=== PATIENT | female | born 1965 | race Caucasian/White ===

== ENCOUNTER 2021-11-18 16:23 | Inpatient (IN) | payer OTHER, SELFPAY ==
[2021-11-18] VITALS (11 sets, daily range): BP systolic 95–146; BP diastolic 68–97; PULSE 101–149; RESP 16–25; TEMP 35.7–37.2; O2SAT 92–100; BMI 23.4
--- NOTE | 2021-11-18 | EEG_ITS ---
This EEG is done in a comatose patient, status post cardiac arrest. She is on a respirator and sedated. Background activity consists of a low voltage, diffuse 2 hertz delta. Minor muscle artifacts are seen. There are no paroxysmal seizure discharges or burst suppression patterns. Photic stimulation and hyperventilation were omitted. IMPRESSION: This is a markedly abnormal EEG due to severe diffuse background slowing consistent with severe diffuse encephalopathic process. No seizure discharges were seen. MD FIDEL Walker/KENY / [id number]
--- NOTE | 2021-11-18 | ECG_ITS ---
Test Reason : post cardiac arrest Blood Pressure : / mmHG Vent. Rate : 099 BPM Atrial Rate : 099 BPM P-R Int : 160 ms QRS Dur : 102 ms QT Int : 396 ms P-R-T Axes : 052 -21 087 degrees QTc Int : 508 ms Normal sinus rhythm Nonspecific ST and T wave abnormality Possible Septal infarct Prolonged QT Abnormal ECG No significant change was found Referred By: Antonio Guillory Electronically Signed By:MAXINE KIMBLE MD
--- NOTE | ~2021-11-18 | CT_ITS ---
EXAMINATION: CT ABDOMEN AND PELVIS WITH CONTRAST CLINICAL INFORMATION: Elevated LFTs. COMPARISON: CT abdomen and pelvis 11/18/2021 TECHNIQUE: Multidetector volumetric images were obtained from the superior aspect of the liver through the pubic symphysis following administration 85 mL of Omnipaque 350 intravenous contrast. Sagittal and coronal reformatted images were obtained on the technologist's workstation. Oral contrast: No This CT examination was performed using dose optimization techniques as appropriate, variously including the following: *Automated exposure control *Adjustment of mA and/or kV according to patient size (this includes techniques or standardized protocols for targeted exams where dose is matched to indication/reason for exam; i.e. extremities or head) *Use of iterative reconstruction technique DLP: 855 mGy-cm FINDINGS: LUNG BASES: There is a right lower lobe platelike atelectasis. Heart size is normal. There is minimal left posterior pleural thickening. LIVER, GALLBLADDER, AND BILIARY TREE: The liver is normal in size, shape, and attenuation. There is a 2.8 x 5.1 cm lobulated peripherally enhancing thick wall lesion suspicious and suggestive of a hemangioma. No additional lesions seen. There is no intrahepatic ductal dilatation. The gallbladder is nondistended visualized due to fluid-filled mildly distended colon and small bowel loops. PANCREAS: Unremarkable. SPLEEN: Unremarkable. ADRENAL GLANDS: Unremarkable. KIDNEYS AND URETERS: The kidneys are normal in size, shape, and attenuation. No hydronephrosis, hydroureter, or calculi seen. No perinephric stranding. BLADDER: The bladder is nondistended with a Blue's catheter within. GASTROINTESTINAL TRACT: There are multiple prominent small bowel loops and the entire colon with air-fluid level. Moderate stool is seen in the sigmoid colon and the rectum. No free air or free fluid seen. The stomach is nondistended with a enteric tube tip in the fundus of the stomach. ABDOMINAL WALL: No significant hernia is appreciated. LYMPH NODES: Normal. VASCULAR: Mild sclerotic changes of abdominal aorta without aneurysmal dilatation. PELVIC VISCERA: The uterus is anteverted and appears unremarkable. There are scattered phleboliths in the pelvis. OSSEOUS STRUCTURES: There are degenerative disc changes L5-S1 and L2-L3 disc levels with mild ventral spondylosis. No lytic or sclerotic process seen. CT/CT abdomen pelvis w con IMPRESSION: Multiple prominent small bowel loops and colon with air-fluid collection but no major distention likely generalized ileus. There is moderate stool in the sigmoid colon and the rectum region which could be contributing 2 sluggish colonic peristalsis The Blue's catheter and enteric tube are in good position. Probable hemangioma right hepatic lobe Fleischner guidelines were followed.
--- NOTE | ~2021-11-18 | CT_ITS ---
EXAMINATION: CT HEAD WITHOUT CONTRAST CLINICAL INFORMATION: Follow-up cardiac arrest 2 days ago COMPARISON: None TECHNIQUE: Contiguous axial imaging was performed from the skull base to vertex without intravenous administration of contrast. This CT examination was performed using dose optimization techniques as appropriate, variously including the following: *Automated exposure control *Adjustment of mA and/or kV according to patient size (this includes techniques or standardized protocols for targeted exams where dose is matched to indication/reason for exam; i.e. extremities or head) *Use of iterative reconstruction technique DLP: 713 mGy-cm FINDINGS: There is no evidence of acute intracranial hemorrhage or territorial infarction. No abnormal mass effect or midline shift is seen. Whitaker to white matter differentiation is well preserved. No extra-axial fluid collections are identified. The ventricles are small asymmetrical but unchanged. There is loss of cortical sulci with ill-defined demarcation between the cortex and the white matter, slightly more pronounced than 11/18/2021. There is normal aeration of bilateral mastoid and paranasal sinuses. No bony calvarial abnormality seen. No scalp soft tissue swelling. CT/CT head/brain wo con IMPRESSION: No acute intracranial process seen. Mild loss of whitaker-white matter junction slightly more prominent compared to 11/18/2021. The cortical sulci are less distinct. Question mild cerebral edema.
--- NOTE | ~2021-11-18 | XR_ITS ---
EXAMINATION: XR chest 1V CLINICAL INFORMATION: Reason for Exam intubation and central line placement COMPARISON: None TECHNIQUE: XR chest 1V Tubes and lines: Endotracheal tube approximately 3 cm from beth, right IJ central line catheter tip projecting over the SVC/RA junction. Gastric tube passing below the diaphragm into the stomach. Lungs and pleura: Both lungs are clear. Heart and mediastinum: The mediastinum is within normal limits.. Bones/soft tissue: Skeletal structures included are normal for patient's age. XR/XR chest 1V IMPRESSION: ET tube, gastric tube and right IJ central line catheter in place properly positioned. Lungs are clear.
--- NOTE | ~2021-11-18 | CT_ITS ---
EXAMINATION: CT HEAD WITHOUT CONTRAST CLINICAL INFORMATION: Seizure. Cardiac arrest. COMPARISON: None. TECHNIQUE: Contiguous axial imaging was performed from the skull base to vertex without intravenous administration of contrast. Coronal and sagittal reformatted images are performed at the CT scanner. [This CT examination was performed using dose optimization techniques as appropriate, variously including the following: *Automated exposure control *Adjustment of mA and/or kV according to patient size (this includes techniques or standardized protocols for targeted exams where dose is matched to indication/reason for exam; i.e. extremities or head) *Use of iterative reconstruction technique] DLP: 638 mGy-cm. FINDINGS: There is no evidence of acute intracranial hemorrhage or territorial infarction. No abnormal mass-effect or midline shift is seen. Whitaker to white matter differentiation is well preserved. No extra-axial fluid collections are identified. The ventricles are normal in size. There is no abnormal attenuation within the brain parenchyma. There is no osseous abnormality. The mastoid air cells and visualized portions of the paranasal sinuses are well-aerated. CT/CT head/brain wo con IMPRESSION: No acute intracranial pathology.
[2021-11-18] MEDS: 0.9 % Sodium Chloride 1,000 ML 999 ML IVCONT ×2 (16:33→18:01)
--- NOTE | 2021-11-18 17:08 | ED.CPR ---
HPI - CPR General Chief Complaint: Cardiac Arrest/CPR Stated Complaint: Cardiac Arrest Time Seen by Provider: 11/18/21 16:32 Source: EMS Mode of arrival: EMS Limitations: altered mental status History of Present Illness HPI narrative: I was in the room prior to arrival of the patient. 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 Shock advised: Yes Initial findings in the field: unresponsive ROSC in the field: No Related Data Allergies Allergy/AdvReac Type Severity Reaction Status Date / Time Unable to Assess Allergy Unverified 11/18/21 16:58 Review of Systems Review of Systems: Yes Unobtainable due to mental condition Neurologic: Denies Sensory deficit (Neuro) PENDING SALE TO [facility] Social History Social History Advance Directives: No Advance Directives Information Provided: No Physical Exam Vital Signs: Vital Signs: Last Vital Signs Temp 97.2 F 11/18/21 19:20 Pulse 113 H 11/18/21 19:20 Resp 18 11/18/21 19:20 BP 146/97 H 11/18/21 19:20 Pulse Ox 100 11/18/21 19:20 O2 Del Method 11/18/21 19:20 FiO2 100 11/18/21 16:55 BMI result Body Mass Index 23.4 Const: Other: CPR in progress Nutritional Appearance: average body habitus HEENT: Head: Yes normal to inspection Ears: external ears normal General nose exam: Normal external nose present Mouth: Normal oral and palatal mucosa present and oropharynx normal Throat: Yes posterior oropharynx normal Eyes: General: appearance normal, both eyes and all related structures Neck: Other: supple Neck: Yes normal visual inspection Chest: Chest palpation & inspection: normal inspection of the chest Resp: Auscultation: clear to auscultation bilaterally Cardio: Jugular venous distension: no JVD Rate: regular rate Rhythm: regular rhythm Heart sounds: S1 normal heart sound present and S2 normal heart sound present GI: Inspection: Yes normal to inspection Palpation (GI): Soft to palpation, nontender and No hepatosplenomegaly present Auscultation: normal bowel sounds : General: Yes no CVA tenderness Back/Spine/Pelvis: Back: no CVA tenderness Skin: General skin exam: no rashes or lesions noted Neuro: Cranial nerves: Yes CN's II-XII intact bilaterally Motor exam (neuro): 5/5 motor strength present throughout Sensory Exam: No Sensory deficit (Neuro) Extrem: General: Yes normal to inspection Psych: Appearance: grossly normal Course Reevaluation(s) Reevaluation #1: Using the glidescope, patient with intubated with 7Fr ETT. patient prepped and left anterior tibial IO placed, Proper hand hygiene, cap, gown and sterile gloves place worn. Patient prepped and draped in sterile fashion, 1% lidocaine used for anesthesia, sterile US cover used, central line placed using US. Central line 16cm at the neck. Sutured in place. A total of three procedures for this patient Reevaluation #2: I spent 70 minutes of critical care, with interventions, assessments, speaking to patient, consultants, and family. Patient to be admitted to the ICU at [facility]. Time: 20:01 MDM - Cardiac Arrest/CPR Lab Data Result diagrams: 11/18/21 17:19 11/18/21 17:19 Labs: Lab Results 11/18/21 11/18/21 11/18/21 Range/Units 17:18 17:18 17:19 WBC (4.8-10.8) X10*3/uL RBC (4.20-5.50) X10*6/uL Hgb (12.0-16.0) g/dl Hct (37.0-47.0) % MCV (80.0-98.0) fL MCH (27.0-33.0) pg MCHC (31.0-35.0) g/dl RDW (11.0-16.0) % Plt Count (160-400) X10*3/uL MPV (9.4-12.3) fL Immature Gran % (Auto) (0.0-0.4) % Neut % (Auto) (45-73) % Lymph % (Auto) (20-40) % [place] % (Auto) (2-11) % Eos % (Auto) (0-4) % Baso % (Auto) (0-2) % Lymph # (Auto) (1.2-4.9) X10*3/uL [place] # (Auto) (0.1-1.2) X10*3/uL Eos # (Auto) (0.0-0.4) X10*3/uL Baso # (Auto) (0.0-0.2) X10*3/uL Abs Immat Gran (auto) (0.00-0.03) X10*3/uL Absolute Neuts (auto) (2.0-8.3) x10*3/uL Absolute Nucleated RBC (0.0-0.012) X10*3/uL Nucleated RBC % (auto) (0.0-0.2) /100WBC O2 Saturation % ABG pH at Pt Temp (7.35-7.45) ABG pCO2 at Pt Temp (32-45) mmHg ABG pO2 at Pt Temp (83-108) mmHg ABG HCO3 (22-26) mmol/L ABG Base Excess (Actual) mmol/L Sodium 139 (135-145) mmol/L Potassium 3.7 (3.3-5.1) mmol/L Chloride 106 (96-108) mmol/L Carbon Dioxide 17 L (22-29) mmol/L Anion Gap 20 (12-20) BUN 17 H (9-16) mg/dL Creatinine 1.33 (0.5-1.4) mg/dL Estim Creat Clear Calc 41.2 Estimated GFR 41 Random Glucose 209 H (60-115) mg/dL Lactic Acid 5.3 H* (0.5-2.0) mmol/L Calcium 8.6 (8.4-10.2) mg/dL Total Bilirubin 0.3 (0.0-1.0) mg/dL AST 512 H (5-31) U/L ALT 570 H (0-31) U/L Alkaline Phosphatase 106 (39-117) U/L Troponin I High Sens (<3.5-17.0) ng/L Total Protein 6.7 (6.5-8.0) g/dL Albumin 4.1 (3.5-5.0) g/dL Urine Color Urine Appearance Urine pH (5.0-8.0) Ur Specific [place] (1.005-1.025) Urine Protein (NEG-TRACE) MG/DL Urine Glucose (UA) (NEG) MG/DL Urine Ketones (NEG) MG/DL Urine Blood (NEG) Urine Nitrite (NEG) Ur Leukocyte Esterase (NEG) Urine RBC (0) /HPF Urine WBC (0-4) /HPF Ur Squamous Epith Cells /LPF Amorphous Sediment /LPF Urine Bacteria /LPF Granular Casts /LPF Urine Mucus /LPF Ethyl Alcohol < 10 mg/dL 11/18/21 11/18/21 11/18/21 Range/Units 17:19 17:19 17:30 WBC 12.8 H (4.8-10.8) X10*3/uL RBC 4.64 (4.20-5.50) X10*6/uL Hgb 12.9 (12.0-16.0) g/dl Hct 41.4 (37.0-47.0) % MCV 89.2 (80.0-98.0) fL MCH 27.8 (27.0-33.0) pg MCHC 31.2 (31.0-35.0) g/dl RDW 13.1 (11.0-16.0) % Plt Count 361 (160-400) X10*3/uL MPV 9.2 L (9.4-12.3) fL Immature Gran % (Auto) 2.7 H (0.0-0.4) % Neut % (Auto) 57.1 (45-73) % Lymph % (Auto) 36.8 (20-40) % [place] % (Auto) 3.0 (2-11) % Eos % (Auto) 0.2 (0-4) % Baso % (Auto) 0.2 (0-2) % Lymph # (Auto) 4.7 (1.2-4.9) X10*3/uL [place] # (Auto) 0.4 (0.1-1.2) X10*3/uL Eos # (Auto) 0.0 (0.0-0.4) X10*3/uL Baso # (Auto) 0.0 (0.0-0.2) X10*3/uL Abs Immat Gran (auto) 0.35 H (0.00-0.03) X10*3/uL Absolute Neuts (auto) 7.3 (2.0-8.3) x10*3/uL Absolute Nucleated RBC 0.000 (0.0-0.012) X10*3/uL Nucleated RBC % (auto) 0.0 (0.0-0.2) /100WBC O2 Saturation 100.0 % ABG pH at Pt Temp 7.30 L (7.35-7.45) ABG pCO2 at Pt Temp 29 L (32-45) mmHg ABG pO2 at Pt Temp 294 H (83-108) mmHg ABG HCO3 14 L (22-26) mmol/L ABG Base Excess (Actual) -10.3 mmol/L Sodium (135-145) mmol/L Potassium (3.3-5.1) mmol/L Chloride (96-108) mmol/L Carbon Dioxide (22-29) mmol/L Anion Gap (12-20) BUN (9-16) mg/dL Creatinine (0.5-1.4) mg/dL Estim Creat Clear Calc Estimated GFR Random Glucose (60-115) mg/dL Lactic Acid (0.5-2.0) mmol/L Calcium (8.4-10.2) mg/dL Total Bilirubin (0.0-1.0) mg/dL AST (5-31) U/L ALT (0-31) U/L Alkaline Phosphatase (39-117) U/L Troponin I High Sens 43.0 H (<3.5-17.0) ng/L Total Protein (6.5-8.0) g/dL Albumin (3.5-5.0) g/dL Urine Color Urine Appearance Urine pH (5.0-8.0) Ur Specific [place] (1.005-1.025) Urine Protein (NEG-TRACE) MG/DL Urine Glucose (UA) (NEG) MG/DL Urine Ketones (NEG) MG/DL Urine Blood (NEG) Urine Nitrite (NEG) Ur Leukocyte Esterase (NEG) Urine RBC (0) /HPF Urine WBC (0-4) /HPF Ur Squamous Epith Cells /LPF Amorphous Sediment /LPF Urine Bacteria /LPF Granular Casts /LPF Urine Mucus /LPF Ethyl Alcohol mg/dL 11/18/21 Range/Units 19:23 WBC (4.8-10.8) X10*3/uL RBC (4.20-5.50) X10*6/uL Hgb (12.0-16.0) g/dl Hct (37.0-47.0) % MCV (80.0-98.0) fL MCH (27.0-33.0) pg MCHC (31.0-35.0) g/dl RDW (11.0-16.0) % Plt Count (160-400) X10*3/uL MPV (9.4-12.3) fL Immature Gran % (Auto) (0.0-0.4) % Neut % (Auto) (45-73) % Lymph % (Auto) (20-40) % [place] % (Auto) (2-11) % Eos % (Auto) (0-4) % Baso % (Auto) (0-2) % Lymph # (Auto) (1.2-4.9) X10*3/uL [place] # (Auto) (0.1-1.2) X10*3/uL Eos # (Auto) (0.0-0.4) X10*3/uL Baso # (Auto) (0.0-0.2) X10*3/uL Abs Immat Gran (auto) (0.00-0.03) X10*3/uL Absolute Neuts (auto) (2.0-8.3) x10*3/uL Absolute Nucleated RBC (0.0-0.012) X10*3/uL Nucleated RBC % (auto) (0.0-0.2) /100WBC O2 Saturation % ABG pH at Pt Temp (7.35-7.45) ABG pCO2 at Pt Temp (32-45) mmHg ABG pO2 at Pt Temp (83-108) mmHg ABG HCO3 (22-26) mmol/L ABG Base Excess (Actual) mmol/L Sodium (135-145) mmol/L Potassium (3.3-5.1) mmol/L Chloride (96-108) mmol/L Carbon Dioxide (22-29) mmol/L Anion Gap (12-20) BUN (9-16) mg/dL Creatinine (0.5-1.4) mg/dL Estim Creat Clear Calc Estimated GFR Random Glucose (60-115) mg/dL Lactic Acid (0.5-2.0) mmol/L Calcium (8.4-10.2) mg/dL Total Bilirubin (0.0-1.0) mg/dL AST (5-31) U/L ALT (0-31) U/L Alkaline Phosphatase (39-117) U/L Troponin I High Sens (<3.5-17.0) ng/L Total Protein (6.5-8.0) g/dL Albumin (3.5-5.0) g/dL Urine Color STRAW Urine Appearance HAZY Urine pH 7.5 (5.0-8.0) Ur Specific [place] 1.020 (1.005-1.025) Urine Protein 2+ H (NEG-TRACE) MG/DL Urine Glucose (UA) 100 H (NEG) MG/DL Urine Ketones NEG (NEG) MG/DL Urine Blood 3+ H (NEG) Urine Nitrite NEG (NEG) Ur Leukocyte Esterase NEG (NEG) Urine RBC 30-49 H (0) /HPF Urine WBC 1-4 (0-4) /HPF Ur Squamous Epith Cells 2+ /LPF Amorphous Sediment 2+ /LPF Urine Bacteria 1+ /LPF Granular Casts 1-4 /LPF Urine Mucus 1+ /LPF Ethyl Alcohol mg/dL Imaging Data CT scan - head: Radiologist's impression: FINDINGS: There is no evidence of acute intracranial hemorrhage or territorial infarction. No abnormal mass-effect or midline shift is seen. Whitaker to white matter differentiation is well preserved. No extra-axial fluid collections are identified. The ventricles are normal in size. There is no abnormal attenuation within the brain parenchyma. There is no osseous abnormality. The mastoid air cells and visualized portions of the paranasal sinuses are well-aerated. ? CT/CT head/brain wo con IMPRESSION: No acute intracranial pathology. ? Chest x-ray: Radiologist's impression: Tubes and lines: Endotracheal tube approximately 3 cm from beth, right IJ central line catheter tip projecting over the SVC/RA junction. Gastric tube passing below the diaphragm into the stomach. Lungs and pleura: Both lungs are clear. Heart and mediastinum: The mediastinum is within normal limits.. Bones/soft tissue: Skeletal structures included are normal for patient's age. XR/XR chest 1V IMPRESSION: ET tube, gastric tube and right IJ central line catheter in place properly positioned. ? Lungs are clear. Discharge Plan Discharge Clinical Impression: Cardiac arrest, Acute respiratory failure, Seizure Patient Disposition: Admitted As Inpatient
--- NOTE | 2021-11-18 17:09 | ECG_ITS ---
Test Reason : ASYSTOLE Blood Pressure : / mmHG Vent. Rate : 141 BPM Atrial Rate : 141 BPM P-R Int : 180 ms QRS Dur : 100 ms QT Int : 246 ms P-R-T Axes : 083 -39 270 degrees QTc Int : 376 ms Sinus tachycardia with occasional Premature ventricular complexes Possible Left atrial enlargement Left axis deviation Minimal voltage criteria for LVH, may be normal variant ( James product ) Septal infarct , age undetermined ST & T wave abnormality, consider inferior ischemia ST & T wave abnormality, consider anterolateral ischemia Abnormal ECG No previous ECGs available Referred By: Antonio Guillory Electronically Signed By:MAXINE KIMBLE MD
--- NOTE | 2021-11-18 17:18 | PC.NURSE ---
XRAY AT BEDSIDE
[2021-11-18 17:27] LABS: MANUAL DIFF FLAG NO
[2021-11-18 17:28] LABS: Basophils Percent Auto 0.2 % (0-2); Eosinophils Percent Auto 0.2 % (0-4); Hematocrit 41.4 % (37.0-47.0); Hemoglobin 12.9 g/dl (12.0-16.0); Imm Gran Abs Auto 0.35 X10*3/uL (0.00-0.03); Imm Gran Pct Auto 2.7 % (0.0-0.4); Lymphocytes Absolute Auto 4.7 X10*3/uL (1.2-4.9); Lymphocytes Percent Auto 36.8 % (20-40); Mean Corpuscular HGB Conc 31.2 g/dl (31.0-35.0); Mean Corpuscular Hemoglobin 27.8 pg (27.0-33.0); Mean Corpuscular Volume 89.2 fL (80.0-98.0); Mean Platelet Volume 9.2 fL (9.4-12.3); Monocytes Absolute Auto 0.4 X10*3/uL (0.1-1.2); Neutrophils Absolute Auto 7.3 x10*3/uL (2.0-8.3); Neutrophils Percent Auto 57.1 % (45-73); Platelet Count 361 X10*3/uL (160-400); Red Blood Count 4.64 X10*6/uL (4.20-5.50); Red Cell Distribution Width 13.1 % (11.0-16.0); White Blood Count 12.8 X10*3/uL (4.8-10.8)
[2021-11-18 17:34] LABS: ABG Base Excess -10.3 mmol/L; ABG HCO3 14 mmol/L (22-26); ABG pCO2 29 mmHg (32-45); ABG pO2 294 mmHg (83-108)
[2021-11-18 17:45] LABS: Ethanol < 10 mg/dL
--- NOTE | 2021-11-18 17:47 | PC.NURSE ---
return from ct with no incident
[2021-11-18 17:54] LABS: Alanine Aminotransferase 570 U/L (0-31); Albumin Level 4.1 g/dL (3.5-5.0); Alkaline Phosphatase 106 U/L (39-117); Anion Gap 20 (12-20); Aspartate Amino Transferase 512 U/L (5-31); Bilirubin Total 0.3 mg/dL (0.0-1.0); Blood Urea Nitrogen 17 mg/dL (9-16); Calcium 8.6 mg/dL (8.4-10.2); Carbon Dioxide 17 mmol/L (22-29); Chloride 106 mmol/L (96-108); Creatinine Clr Calc Pharmacy 41.2; Estimated Glomerular Filt Rate 41; Glucose Random 209 mg/dL (60-115); Potassium 3.7 mmol/L (3.3-5.1); Sodium 139 mmol/L (135-145); Total Protein 6.7 g/dL (6.5-8.0)
[2021-11-18 17:57] LABS: Lactic Acid 5.3 mmol/L (0.5-2.0)
--- NOTE | 2021-11-18 17:58 | PC.NURSE ---
awaiting md order in chart s/p verbal order of 4mg iv ativan at 1720
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
--- NOTE | 2021-11-18 19:23 | ECG_ITS ---
Test Reason : CARDIAC Blood Pressure : / mmHG Vent. Rate : 124 BPM Atrial Rate : 124 BPM P-R Int : 148 ms QRS Dur : 096 ms QT Int : 338 ms P-R-T Axes : 076 -02 086 degrees QTc Int : 485 ms Sinus tachycardia Septal infarct (cited on or before 18-NOV-2021) Abnormal ECG When compared with ECG of 18-NOV-2021 16:26, Premature ventricular complexes are no longer Present Serial changes of evolving Septal infarct Present ST less depressed in Inferior leads / Anterolateral leads Referred By: Fermin Stern Electronically Signed By:MAXINE KIMBLE MD
[2021-11-18 19:25] LABS: Reflex Lactate? Lactic Acid Added
[2021-11-18 19:38] LABS: Appearance Urine HAZY; Color Urine STRAW; Glucose Urine UA 100 MG/DL (NEG); Leukocyte Esterase Urine NEG (NEG); Nitrite Urine NEG (NEG); PH 7.5 (5.0-8.0); UACC Culture Trigger NO; Urine Blood 3+ (NEG); Urine Ketones NEG (NEG); Urine Protein 2+ MG/DL (NEG-TRACE)
[2021-11-18 19:45] LABS: Mucus Urine 1+ /LPF
[2021-11-18 19:46] LABS: Amorphous Sediment Urine 2+ /LPF; Bacteria Urine 1+ /LPF; Squamous Epithelial Cell Urine 2+ /LPF
[2021-11-18 19:47] LABS: RBC Urine 30-49 /HPF (0)
[2021-11-18] MEDS: iohexoL 350 MG/ML 100 ML INFUS..BTL IV (20:14)
[2021-11-18] MEDS: Pantoprazole Sodium 40 MG/10 ML VIAL IVPUSH (20:36)
[2021-11-18] MEDS: Heparin Sodium,Porcine 5,000 UNIT/ML VIAL 5000 UNIT SUBCUT (20:37)
[2021-11-18 20:48] LABS: Amphetamine Screen Urine Not Detected (Not Detect); Barbiturates, Urine Not Detected (Not Detect); Benzodiazepines Screen Urine Not Detected (Not Detect); Cannabinoid Screen Urine POSITIVE (Not Detect); Cocaine Screen Urine Not Detected (Not Detect); Fentanyl, urine Not Detected (Not Detect); Opiate Screen Urine Not Detected (Not Detect); Phencyclidine Screen Urine Not Detected (Not Detect)
[2021-11-18 20:48] LABS: VBG Base Excess -7.4 mmol/L; VBG HCO3 17 mmol/L (22-26); VBG pCO2 35 mmHg; VBG pH 7.31 (7.32-7.43); VBG pO2 144 mmHg
[2021-11-18 20:50] LABS: Venous Blood Gas Refer to POC result
--- NOTE | 2021-11-18 20:51 | PM.CCHP ---
History of Present Illness Date of Service: 11/18/21 Attending physician on admission: Raymundo Araujo Chief Complaint: Post cardiorespiratory arrest HPI:? 55-year-old female, the majority of history obtained from ER records But also from her who is now a bedside the patient has on underlying history of prescription drug abuse for about 3 years up until the end of last year currently on methadone, hypertension, hyperlipidemia. According to the patient's , the patient had been doing well on methadone for the past several months since she started treatment.? ?He last spoke to her around 230 pm and she had complained of having a headache which is not usual for her as well as having elevated blood pressure,? ?Otherwise she was in good state of health. Reportedly the patient was at work and she was found slumped over perhaps seizing, EMS was called but only a BLS crew was available, according to ER records it was reported to them the patient had been down for 5 minutes, 3 shocks from AED were given at the scene and 12 mg of intranasal Narcan without response, transported to the ER with CPR in progress, no rhythm on the monitor at the time; approximately 5 minutes of CPR and 2 doses of epinephrine were given via a intra osseous line placed in the Left tibia by the ER personnel; ROSC was obtained, the patient was intubated and right IJ central line. In the ED the workup revealed a white count 12.8, H&H of 12.9 and 41.4 respectively, platelets 361.? Her ABG pH 7.3, pCO2 29, PO2 294 HC03 14.? Sodium 139, potassium 3.7, chloride 1 6, carbon dioxide 17, anion gap 20, BUN 17, creatinine 1.3, GFR 41, random glucose 209, lactic acid 5.3, calcium 8.6.? LFTs elevated at 512 and 570 respectively, troponin 43.? Urine negative with a blood alcohol level less than 10.? There is no toxicology screen done, her chest x-ray and head CT showed no abnormalities. ROS:? UNABLE TO OBTAIN PATIENT INTUBATED Past Medical History:? As above Past Surgical History:? none per Family history:? Unknown Social History: I talked to the patient's Primary contact Wu Brannon, patient's significant other, phone number [phone]; He has been her partner for 23 years, they have a son. The patient does not drink, however she does smoke cigarettes with a approximate 25 pack-year history of tobacco consumption is still smoking just under a pack daily, occasionally smokes marijuana, got into prescription drug abuse about 3 years ago and started methadone treatment in June of this year. 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 CODE STATUS:? Full code Allergies:? No known drug allergies Home Medications:? see Med Rec ? PHYSICAL EXAM: Current VENT SETTINGS : AC/ RR 18 / ?TV 400 / PeeP ?5 / FiO2 50 % satting ?100% VS: BP 146/97 , heart rate 113? ? , respirations 18, O2 sat 100% on mechanical ventilation, temperature 97.2? ? General:? Sedated on a ventilator ? Skin:? Intact, no lesions, edema, erythema, clubbing or cyanosis.? No ulcers. ? HEENT:? Head is normocephalic, atraumatic, pupils pinpointed and nonreactive.? Neck is supple, no JVD or lymphadenopathy, no masses. ? Cardiac:? Clear S1-S2, no murmurs rubs or gallops. ? Pulmonary:? Clear to auscultation, no wheezes, rales or rhonchi. ? Abdomen:? Protuberant, no bowel sounds noted over any of the 4 quadrants, but it is soft. Blue cath in place. ? Musculoskeletal:? No bony abnormalities, on passive range of motion at the major joints there is no cogwheeling or crepitus, no calf asymmetry or edema of the legs.??Left tibial IO. ? Neurologic:? As above otherwise unable to assess ? Vascular:? 2+ pulses upper and lower extremities distally.? SIGNIFICANT LABORATORY DATA:? As above REVIEW OF IMAGES: Head CT IMPRESSION: No acute intracranial pathology. CXR IMPRESSION: ET tube, gastric tube and right IJ central line catheter in place properly positioned. Lungs are clear. CT Abdomen and Pelvis with contrast Multiple prominent small bowel loops and colon with air-fluid collection but no major distention likely generalized ileus. There is moderate stool in the sigmoid colon and the rectum region which could be contributing 2 sluggish colonic peristalsis. The Blue's catheter and enteric tube are in good position.? Probable hemangioma right hepatic lobe. EKG REVIEW: Sinus tachycardia 124bpm no ST elevations, there is ST depressions in anterior lateral leads.? Q-waves are noted in V1, V2 and lead 3 age-indeterminate changes.? No comparison available. BED SIDE ECHO: Done by me in the presence of a female nurse, to my view there is no ventricular hypertrophy however there is partial akinesis of the left ventricular wall in comparison to the RV motion. Mitral and tricuspid valves are moving normally without any evidence of regurgitation by Doppler. SVC 2.2 cm in diameter and collapses about longterm with inspiration. ? ASSESSMENT AND PLAN: 1. Status post cardio respiratory arrest r/o sz leading to hypoxia and then cardiac arrest, ID , PE ? total down time or CPR 2. Reported seizure episode leading to the above or as a result of the above and anoxic brain injury 3. 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 Acute respiratory alkalosis with metabolic acidosis 4. Reactive leukocytosis 5. History of drug abuse on methadone 6. Reactive tachycardia 7. EKG changes, Troponin elevation and akinesis of the left ventricular wall likely ACS leading to the above 8. Reactive lactic acidosis without evidence of sepsis 9. Ileus most likely due to chronic opioid use 10. Borderline Hypomagnesemia 11. Incidental Liver Hemangioma Patient will be admitted to the ICU, head of the bed at 30 degree angle, monitor I and O?s; IVF (LR) for maintenance, I do believe the patient is still dehydrated. I removed the Left IO line. I have asked the RT to change the vent settings as the patient's pO2 is almost 300 per the blood gas, suggested to decrease the FiO2, lower the rate as well as the tidal volume.? Suggested settings are AC, 14, 350, 5, 30% ? I will repeat laboratories in the morning including venous blood gas. I have order a CT of the abdomen pelvis to rule out the possibility of intra-abdominal pathology, will get viral hepatitis panel, order Tylenol level and U tox, will perform a bedside echo to evaluate the hearts wall motion and determine if there is any abnormalities, as well as for hemodynamics. No antibiotics will be given at this point for the recent source of infection and I do not think there is any sepsis going on.? Per latest literature, there is no need to perform cooling therapy, this was discussed with Dr. Araujo and he is in agreement.Iv Mag x 2 g. Repeat EKG: to my view this is normal sinus rhythm rate of 98 beats per minute. No ST elevations. There is ST depressions throughout the anterior lateral leads with flattening of the T-waves in the lateral leads all of which are more marked on done on initial EKG. QTC 412. After having done the above-mentioned echo, I do believe that the patient had cardiac ischemia, her trop now is 1800; she could have had an inferior ID; I will likely start hep gtt and will consult with Cardiology to make sure they are ok with it and or have any more suggestions; but not before testing the gastric contents have some maroon colored secretions. Aspirin, BB and statin via G-tube. While assessing the patient, she did have tonic clonic movements with nystagmus towards the left side and mouth foaming. Ativan 2 mg IV given with good improvement. I will order an EEG and consult Neurology. Will place her on propofol. GI PROPHYLAXIS:? IV ppi DVT PROPHYLAXIS:? Hepp gtt 1230 am on 11/19/[address] Pulliam aware of all above, agrees with Hep drip which was already started given the raise in trop and ekg changes, agrees with ASA, Statin and BB; r/o PE is important but unlikely as BNP is low and there is no evidenceof RHS and any other studies can be done later as she got contrast in ED for abd CT already and pt is already anticoagulated, formal echo in am requested as well. Critical care time used for critical evaluation of this patient, diagnosis, treatment and coordination of care, review her records and documentation TOTAL CRITICAL CARE TIME 180 MIN, Due to the complexity of the case, multiple active issues, family discussions, coordination of care.' Patient's care was discussed in detail with Dr. Araujo.? He is aware of all the above as well as the plan of care for this patient. ? [facility] Social History Social History Currently Displaying Signs/Symptoms of Drug Intoxication Withdrawal: No Advance Directives: No Advance Directives Information Provided: No Meds Allergies Allergy/AdvReac Type Severity Reaction Status Date / Time Unable to Assess Allergy Unverified 11/18/21 16:58 Active Medications: Current Medications Heparin Sodium (Porcine) (Heparin Sodium,Porcine 5,000 Unit/Ml Vial) 5,000 unit SUBCUT Q8H [facility] Last Admin: 11/18/21 20:37 Dose: 5,000 unit Pantoprazole Sodium (Pantoprazole Sodium 40 Mg/10 Ml Vial) 40 mg IVPUSH DAILY@0630 LYNN Last Admin: 11/18/21 20:36 Dose: 40 mg Home Medications Medication Instructions Recorded Confirmed Last Taken Type amlodipine 5 mg tablet 1.5 tab PO DAILY 11/18/21 11/18/21 Unknown History atorvastatin 10 mg tablet 1 tab PO DAILY 11/18/21 11/18/21 Unknown History buprenorphine 2 mg-naloxone 0.5 mg 1 strip sublingual DAILY 11/18/21 Unknown History sublingual film docusate sodium 100 mg capsule 1 cap PO DAILY 11/18/21 11/18/21 Unknown History lisinopril 40 mg tablet 1 tab PO DAILY 11/18/21 11/18/21 Unknown History sennosides 8.6 mg tablet (senna) 1 tab PO DAILY 11/18/21 11/18/21 Unknown History Physical Exam Vital Signs: Vital Signs: Last Vital Signs Temp 97.2 F 11/18/21 19:20 Pulse 113 H 11/18/21 19:20 Resp 18 11/18/21 19:20 BP 146/97 H 11/18/21 19:20 Pulse Ox 100 11/18/21 19:20 O2 Del Method 11/18/21 19:20 FiO2 100 11/18/21 16:55 BMI result Body Mass Index 23.4 Results Labs CBC and Chem 7: 11/20/21 05:22 11/20/21 05:22 Labs: Laboratory Results - last 24 hr 11/18/21 11/18/21 11/18/21 17:18 17:18 17:19 MCV MCH MCHC RDW Plt Count MPV Immature Gran % (Auto) Neut % (Auto) Lymph % (Auto) [place] % (Auto) Eos % (Auto) Baso % (Auto) Lymph # (Auto) [place] # (Auto) Eos # (Auto) Baso # (Auto) Abs Immat Gran (auto) Absolute Neuts (auto) Absolute Nucleated RBC Nucleated RBC % (auto) O2 Saturation ABG pH at Pt Temp ABG pCO2 at Pt Temp ABG pO2 at Pt Temp ABG HCO3 ABG Base Excess (Actual) VBG pH VBG pCO2 VBG pO2 VBG HCO3 VBG O2 Saturation VBG Base Excess Anion Gap 20 Estim Creat Clear Calc 41.2 Estimated GFR 41 Random Glucose 209 H Lactic Acid 5.3 H* Calcium 8.6 Total Bilirubin 0.3 AST 512 H ALT 570 H Alkaline Phosphatase 106 Troponin I High Sens Total Protein 6.7 Albumin 4.1 Urine Color Urine Appearance Urine pH Ur Specific [place] Urine Protein Urine Glucose (UA) Urine Ketones Urine Blood Urine Nitrite Ur Leukocyte Esterase Urine RBC Urine WBC Ur Squamous Epith Cells Amorphous Sediment Urine Bacteria Granular Casts Urine Mucus Urine Opiates Screen Urine Fentanyl Screen Ur Barbiturates Screen Ur Phencyclidine Scrn Ur Amphetamines Screen U Benzodiazepines Scrn Urine Cocaine Screen U Marijuana (THC) Screen Ethyl Alcohol < 10 11/18/21 11/18/21 11/18/21 17:19 17:19 17:30 MCV 89.2 MCH 27.8 MCHC 31.2 RDW 13.1 Plt Count 361 MPV 9.2 L Immature Gran % (Auto) 2.7 H Neut % (Auto) 57.1 Lymph % (Auto) 36.8 [place] % (Auto) 3.0 Eos % (Auto) 0.2 Baso % (Auto) 0.2 Lymph # (Auto) 4.7 [place] # (Auto) 0.4 Eos # (Auto) 0.0 Baso # (Auto) 0.0 Abs Immat Gran (auto) 0.35 H Absolute Neuts (auto) 7.3 Absolute Nucleated RBC 0.000 Nucleated RBC % (auto) 0.0 O2 Saturation 100.0 ABG pH at Pt Temp 7.30 L ABG pCO2 at Pt Temp 29 L ABG pO2 at Pt Temp 294 H ABG HCO3 14 L ABG Base Excess (Actual) -10.3 VBG pH VBG pCO2 VBG pO2 VBG HCO3 VBG O2 Saturation VBG Base Excess Anion Gap Estim Creat Clear Calc Estimated GFR Random Glucose Lactic Acid Calcium Total Bilirubin AST ALT Alkaline Phosphatase Troponin I High Sens 43.0 H Total Protein Albumin Urine Color Urine Appearance Urine pH Ur Specific [place] Urine Protein Urine Glucose (UA) Urine Ketones Urine Blood Urine Nitrite Ur Leukocyte Esterase Urine RBC Urine WBC Ur Squamous Epith Cells Amorphous Sediment Urine Bacteria Granular Casts Urine Mucus Urine Opiates Screen Urine Fentanyl Screen Ur Barbiturates Screen Ur Phencyclidine Scrn Ur Amphetamines Screen U Benzodiazepines Scrn Urine Cocaine Screen U Marijuana (THC) Screen Ethyl Alcohol 11/18/21 11/18/21 11/18/21 19:23 19:23 20:44 MCV MCH MCHC RDW Plt Count MPV Immature Gran % (Auto) Neut % (Auto) Lymph % (Auto) [place] % (Auto) Eos % (Auto) Baso % (Auto) Lymph # (Auto) [place] # (Auto) Eos # (Auto) Baso # (Auto) Abs Immat Gran (auto) Absolute Neuts (auto) Absolute Nucleated RBC Nucleated RBC % (auto) O2 Saturation ABG pH at Pt Temp ABG pCO2 at Pt Temp ABG pO2 at Pt Temp ABG HCO3 ABG Base Excess (Actual) VBG pH 7.31 L VBG pCO2 35 VBG pO2 144 VBG HCO3 17 L VBG O2 Saturation 100.0 VBG Base Excess -7.4 Anion Gap Estim Creat Clear Calc Estimated GFR Random Glucose Lactic Acid Calcium Total Bilirubin AST ALT Alkaline Phosphatase Troponin I High Sens Total Protein Albumin Urine Color STRAW Urine Appearance HAZY Urine pH 7.5 Ur Specific [place] 1.020 Urine Protein 2+ H Urine Glucose (UA) 100 H Urine Ketones NEG Urine Blood 3+ H Urine Nitrite NEG Ur Leukocyte Esterase NEG Urine RBC 30-49 H Urine WBC 1-4 Ur Squamous Epith Cells 2+ Amorphous Sediment 2+ Urine Bacteria 1+ Granular Casts 1-4 Urine Mucus 1+ Urine Opiates Screen Not Detected Urine Fentanyl Screen Not Detected Ur Barbiturates Screen Not Detected Ur Phencyclidine Scrn Not Detected Ur Amphetamines Screen Not Detected U Benzodiazepines Scrn Not Detected Urine Cocaine Screen Not Detected U Marijuana (THC) Screen POSITIVE H Ethyl Alcohol Imaging Radiologist's Impressions: Impressions Chest X-Ray 11/18/21 17:20 IMPRESSION: ET tube, gastric tube and right IJ central line catheter in place properly positioned. Lungs are clear. Head CT 11/18/21 17:43
[2021-11-18 20:57] LABS: ~Lactic Acid-LAB USE ONLY 0.9 mmol/L (0.5-2.0)
[2021-11-18 21:01] LABS: Acetaminophen LAB < 1 mcg/mL (<30); Magnesium 1.6 mg/dL (1.6-2.6); Phosphorus 4.5 mg/dL (2.7-4.5)
[2021-11-18 21:10] LABS: Troponin-I High Sensitivity 1143.8 ng/L (<3.5-17.0)
[2021-11-18 21:19] LABS: Procalcitonin 0.28 ng/mL
[2021-11-18] MEDS: Metoprolol Tartrate 5 MG/5 ML VIAL IVPUSH (21:41)
[2021-11-18] MEDS: propofoL 1,000 MG/100 ML VIAL 7.44 MG IVCONT (21:44)
[2021-11-18] MEDS: LORazepam 2 MG/ML VIAL IVPUSH (21:44)
[2021-11-18] MEDS: Lactated Ringers 1,000 ML 150 ML IVCONT (22:59)
--- NOTE | 2021-11-18 23:25 | PC.NURSE ---
Blue catheter inserted in Emergency Department [employer] in ICU
[2021-11-18 23:34] LABS: Prothrombin Time 11.3 SEC (9.9-13.0)
[2021-11-18 23:37] LABS: PTT Heparin Drip 31.5 SEC (53-77.9)
[2021-11-18 23:55] LABS: GASOB Int Neg Ctl Valid YES; GASOB Int Pos Ctl Valid YES; Occult Blood Gastric NEGATIVE (NEG)
[2021-11-19] VITALS (31 sets, daily range): BP systolic 127–161; BP diastolic 55–107; PULSE 89–116; RESP 14–28; TEMP 34.6–37.7; O2SAT 93–100; BMI 26.6
--- NOTE | 2021-11-19 | ECG_ITS ---
Test Reason : POST CARDIAC ARREST Blood Pressure : / mmHG Vent. Rate : 093 BPM Atrial Rate : 093 BPM P-R Int : 144 ms QRS Dur : 100 ms QT Int : 416 ms P-R-T Axes : 048 -20 130 degrees QTc Int : 517 ms Normal sinus rhythm Minimal voltage criteria for LVH, may be normal variant ( James product ) ST & T wave abnormality, consider anterolateral ischemia Prolonged QT Abnormal ECG When compared with ECG of 18-NOV-2021 21:37, T wave inversion now evident in Anterior leads Referred By: Antonio Guillory Electronically Signed By:MAXINE KIMBLE MD
[2021-11-19 00:09] LABS: Troponin-I High Sensitivity 1819.1 ng/L (<3.5-17.0)
[2021-11-19] MEDS: Heparin Sodium,Porcine 5,000 UNIT/ML VIAL 5000 UNIT IVPUSH (00:17)
[2021-11-19] MEDS: Heparin Sodium,Porcine/1/2NS 25,000 UNIT/250 ML IV.SOLN 8.68 UNIT IVCONT (00:18)
[2021-11-19 00:29] LABS: ABG Refer to POC result
[2021-11-19 00:48] LABS: B Type Natriuretic Peptide 140 pg/mL (<100)
[2021-11-19] MEDS: Atorvastatin Calcium 80 MG TABLET PO ×2 (00:58→21:16)
[2021-11-19] MEDS: Sodium Bicarbonate 8.4% 50 MEQ/50 ML SYRINGE IVPUSH (00:58)
[2021-11-19 01:11] LABS: Glucose, Whole Blood 128 mg/dL (60-115)
[2021-11-19] MEDS: Magnesium Sulfate/H2O 2 GM/50 ML PIGGYBACK IV (01:24)
[2021-11-19] MEDS: Metoprolol Tartrate 25 MG TABLET PO ×5 (01:30→21:16)
[2021-11-19 05:05] LABS: VBG Base Excess 1.3 mmol/L; VBG HCO3 24 mmol/L (22-26); VBG pCO2 33 mmHg; VBG pH 7.47 (7.32-7.43); VBG pO2 48 mmHg
[2021-11-19 05:07] LABS: Basophils Percent Auto 0.1 % (0-2); Hematocrit 36.6 % (37.0-47.0); Hemoglobin 12.1 g/dl (12.0-16.0); Imm Gran Abs Auto 0.05 X10*3/uL (0.00-0.03); Imm Gran Pct Auto 0.4 % (0.0-0.4); Lymphocytes Absolute Auto 0.7 X10*3/uL (1.2-4.9); Lymphocytes Percent Auto 5.7 % (20-40); MANUAL DIFF FLAG NO; Mean Corpuscular HGB Conc 33.1 g/dl (31.0-35.0); Mean Corpuscular Hemoglobin 28.3 pg (27.0-33.0); Mean Corpuscular Volume 85.7 fL (80.0-98.0); Mean Platelet Volume 8.7 fL (9.4-12.3); Monocytes Absolute Auto 0.6 X10*3/uL (0.1-1.2); Monocytes Percent Auto 4.9 % (2-11); Neutrophils Absolute Auto 11.3 x10*3/uL (2.0-8.3); Neutrophils Percent Auto 88.9 % (45-73); Platelet Count 298 X10*3/uL (160-400); Red Blood Count 4.27 X10*6/uL (4.20-5.50); Red Cell Distribution Width 13.2 % (11.0-16.0); White Blood Count 12.8 X10*3/uL (4.8-10.8)
[2021-11-19 05:33] LABS: Troponin-I High Sensitivity 1130.8 ng/L (<3.5-17.0); Venous Blood Gas Refer to POC result
[2021-11-19 05:40] LABS: Alanine Aminotransferase 430 U/L (0-31); Albumin Level 3.9 g/dL (3.5-5.0); Alkaline Phosphatase 75 U/L (39-117); Anion Gap 12 (12-20); Aspartate Amino Transferase 399 U/L (5-31); Bilirubin Direct 0.3 mg/dL (0.0-0.5); Bilirubin Total 0.6 mg/dL (0.0-1.0); Blood Urea Nitrogen 16 mg/dL (9-16); C Reactive Protein 2.64 mg/dL (< or = 0.50); Calcium 8.1 mg/dL (8.4-10.2); Carbon Dioxide 25 mmol/L (22-29); Chloride 106 mmol/L (96-108); Cholesterol 170 mg/dL; Creatinine Clr Calc Pharmacy 77.3; Estimated Glomerular Filt Rate > 60; Glucose Random 130 mg/dL (60-115); HDL Cholesterol 69 mg/dL; LDL Cholesterol Calculated 91 mg/dl; Sodium 140 mmol/L (135-145); Total Protein 6.2 g/dL (6.5-8.0); Triglycerides 51 mg/dL
[2021-11-19 05:54] LABS: HBS Num1 11.99 mIU/mL (0-7.99); HBc Num1 0.12 S/CO (0.00-0.79); HBsAGNum1 0.27 S/CO (0.00-0.99); Hepatitis B Core Antibody Nonreactive (Nonreactive); Hepatitis B Surface Antigen Negative (Negative); ~HepC Num1 0.09 S/CO (0.00-0.79); ~Hepatitis C Antibody Nonreactive (Nonreactive)
[2021-11-19] MEDS: Pantoprazole Sodium 40 MG/10 ML VIAL IVPUSH (06:08)
[2021-11-19] MEDS: propofoL 1,000 MG/100 ML VIAL 11.16 MG IVCONT (06:13)
[2021-11-19 06:34] LABS: HBS Num2 12.17 mIU/mL (0-7.99); HBS Num3 12.63 mIU/mL (0-7.99); ~Hepatitis B Surface Antibody REACTIVE (Nonreactive)
--- NOTE | 2021-11-19 07:00 | CA_ITS ---
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 Moderate to severe LV systolic dysfunction with some regional wall motion abnormality in the septum with impaired relaxation filling pattern 2. Normal cardiac valvular Doppler 3. Normal RV systolic pressure 4. No pericardial effusion Findings Left Ventricle Normal left ventricular cavity size. There is normal left ventricular wall thickness. The left ventricular systolic function is moderate to severely decreased. Spectral Doppler is indicative of an impaired relaxation filling pattern. E/E prime ratio is between 8 and 15 consistent with indeterminate filling pressures. Wall Motion Rest Echo Findings The anterior wall, inferior wall, entire lateral wall, the apex, and basal anteroseptal segments are hypokinetic. The inferoseptal wall, the apical septum, and mid anteroseptal segments are akinetic. Right Ventricle Normal right ventricular cavity size and systolic function. Atria The left atrium is normal in size. There is no evidence of interatrial shunt. The right atrium is normal in size. Aortic Valve Normal aortic valve structure and function. There is no aortic valve stenosis. There is no aortic valve regurgitation. Mitral Valve There is mild anterior and posterior mitral leaflet thickening. There is trace mitral valve regurgitation. There is no mitral valve stenosis. Pulmonic Valve The pulmonic valve is likely normal. There is trace pulmonic valve regurgitation. Tricuspid Valve Normal tricuspid valve structure. There is trace tricuspid valve regurgitation. The right ventricular systolic pressure is normal. The right ventricular systolic pressure is 21 mmHg. Normal right atrial pressure. There is no evidence of pulmonary hypertension. Great Vessels All visible segments of the aorta are normal in size. The pulmonary artery was not well visualized. Venous The inferior vena cava is normal in size and collapses greater than 50% with inspiration. Pericardium/Pleural There is no evidence of pericardial effusion. Prior Study Comparison No prior study available for comparison. Measurements 2D Linear Measurements IVSd: 0.86 0.6-0.9/0.6-1.0 cm LVIDd: 4.90 3.9-5.3/4.2-5.9 cm LVIDd Index: 2.78 2.4-3.2/2.2-3.1 cm/m2 LVIDs: 4.25 2.0-3.6 cm LVPWd: 0.91 0.7-1.1 cm LA Diam: 2.90 2.7-3.8/3.0-4.0 cm LAIDs Index: 1.65 1.5-2.3 cm/m2 LV Mass: 186.26 67-162/88-224 g LV Mass Index: 105.83 43-95/49-115 g/m2 LVOT Diam: 1.90 3.0+(-)1.3 cm 2D Systolic Function EF 4C: 29.30 >55% EF 2C: 32.10 >55% EF BiP: 31.70 >55% Mitral Valve MV Pk E: 0.64 MV PK A: 1.08 MV Decel Time: 118.00 E/A: 0.60 E'Lateral: 5.77 E'Medial: 4.79 E/E' Med: 13.30 E/E' Lat: 11.00 PHT: 35.00 MVA PHT: 6.29 Decel Wharton: 5.39 Aortic Valve AoV Pk Yash: 1.09 AoV Mn Yash: 0.88 AoV VTI: 0.21 AoV Pk Grad: 5.00 Aov Mn Grad: 3.00 ANTONIO Cont.VTI: 2.09 LVOT LVOT Pk Yash: 0.92 LVOT Mn Yash: 0.64 LVOT VTI: 0.16 LVOT Pk Grad: 3.00 LVOT Mn Grad: 2.00 LVOT Diam: 1.90 LVOT Area: 2.84 Diastolic Function MV Pk E: 0.64 MV Pk A: 1.08 E/A: 0.60 E'Medial: 4.79 E/E' Med: 13.30 E' Laterial: 5.77 E/E' Lat: 11.00 Right Ventricle TAPSE (mm): 20.00 TVS' Yash: 12.50 Tricuspid Valve TR Pk Yash: 1.82 TR Pk Grad: 13.00 RA Press: 8.00 RVSP: 21.00 Great Vessels Aorta Sinus of Valsalva: 3.23 2.0-3.[address] [place]: 2.73 1.7-3.4 cm Ao Asc: 3.10 2.1-3.4 cm Updated in Other Vendor System with Status of Final Jake Pulliam MD electronically signed on 11/19/2021 12:29:05 PM with status of Final
[2021-11-19] MEDS: Metoprolol Tartrate 5 MG/5 ML VIAL IVPUSH (07:36)
[2021-11-19] MEDS: Ketorolac Tromethamine 30 MG/ML VIAL IVPUSH (07:36)
[2021-11-19] MEDS: Ampicillin Sodium/Sulbactam Na 3 GM in 0.9 % Sodium Chloride 100 ML IV (07:43)
[2021-11-19 07:54] LABS: Glucose, Whole Blood 198 mg/dL (60-115)
--- NOTE | 2021-11-19 08:16 | MHC.CLN ---
PT IS INTUBATED AND SEDATED IF TF NEEDED; RECOMMEND TF PROMOTE AT MAX GOAL RATE 45ML/HR WITH 240ML FREE WATER FLUSHES Q 8 HRS TO PROVIDE 1080KCALS (1374KCALS WITH SEDATION; 23KCALS/KG BASED ON CMW), 67.5G PROTEIN (1.1G/KG), 1626ML TOTAL WATER FROM FORMULA AND FLUSHES (27ML/KG) START FORMULA AT 20ML/HR AND INCREASE BY 10ML Q 4 HRS UNTIL MAX GOAL IS ACHIEVED MONITOR TOLERANCE, RESIDUALS AND LYTES FULL NUTRITION ASSESSMENT TO FOLLOW
[2021-11-19] MEDS: Potassium Chloride/H20 10 MEQ/100 ML PIGGYBACK 100 MEQ IV ×2 (08:32→09:50)
--- NOTE | 2021-11-19 09:49 | PM.CNCAR ---
History of Present Illness History of Present Illness Date of Service: 11/19/21 Requesting physician: Antonio Guillory Consult reason: other Chief complaint: Post Cardiac Arrest Narrative: I was consulted to see Miladis in cardiology consultation due to elevated troponins and cardiac arrest. History is obtained from the chart and from the nursing history, could not talk to the patient or the significant other. Patient with prior history of hypertension, hyperlipidemia and methadone use. 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 She had complained of some headaches and not feeling well prior to that. There is no clear reported episodes of chest pain or shortness of breath although this is unclear. When they found an ambulance was called she had 3 shocks with the AED, rhythm is unclear at that point time suspected VF. She had CPR and she had no return of spontaneous circulation was brought to the emergency room and in the emergency room she received epinephrine x2 with continued CPR for about 5 minute with return of spontaneous circulation. There is reported seizure activity on side however this could be related to cardiac arrest. Subsequently she was admitted here initial troponin is 43 subsequent troponin was 1100 and subsequent troponin 1800 consistent with NSTEMI. Initial EKG do shows sinus tachycardia with diffuse ST depression in inferior and anterolateral leads suggestive ischemia which improved with subsequent EKGs with improvement in heart rate. She was obviously intubated and supported. She is currently getting sedation but is on support ventilation requiring very minimal oxygen. Maintaining oxygen saturation as well as hemodynamically stable. No significant arrhythmias overnight. No prior cardiac history. Echo being done at bedside shows depressed LV EF with some regional wall motion abnormality. Cardiology consult was sought for further management plan. There was reported seizure-like activity when she was off sedation for low bit and also some possible decorticate posturing. Her pupils are reactive. No hypothermia protocol was initiated Review of Systems Review of Systems: Yes unobtainable due to endotracheal tube PMFSH Social History Social History Currently Displaying Signs/Symptoms of Drug Intoxication Withdrawal: No Advance Directives: No Advance Directives Information Provided: No Meds Allergies Allergy/AdvReac Type Severity Reaction Status Date / Time Unable to Assess Allergy Unverified 11/18/21 16:58 Active Medications: Current Medications Aspirin (Aspirin 81 Mg Tab.Chew) 324 mg PO DAILY LYNN Atorvastatin Calcium (Atorvastatin Calcium 80 Mg Tablet) 80 mg PO BEDTIME [facility] Last Admin: 11/19/21 00:58 Dose: 80 mg Heparin Sodium (Porcine) (Heparin Sodium,Porcine 5,000 Unit/Ml Vial) 5,000 unit 80 unit/kg (5000 unit) IVPUSH PROTOCOL BOLUS PRN; Protocol PRN Reason: 80 unit/kg - Heparin Protocol Heparin Sodium (Porcine) (Heparin Sodium,Porcine 5,000 Unit/Ml Vial) 2,500 unit 40 unit/kg (2500 unit) IVPUSH PROTOCOL BOLUS PRN PRN Reason: 40 unit/kg - Heparin Protocol Propofol (Diprivan) 1,000 mg in 100 mls @ 0 mls/hr IVCONT .Q0M [facility]; Protocol Last Admin: 11/19/21 06:13 Dose: 30 mcg/kg/min, 11.16 mls/hr Lactated Ringer's (Lr) 1,000 mls @ 150 mls/hr IVCONT .Q6H40M [facility] Last Admin: 11/19/21 06:01 Dose: Not Given Heparin Sodium/Sodium Chloride () 25,000 unit in 250 mls @ 0 mls/hr IVCONT .Q0M [facility]; Protocol Last Titration: 11/19/21 07:55 Dose: 12 units/kg/hr, 7.44 mls/hr Potassium Chloride () 10 meq in 100 mls @ 100 mls/hr IV Q1H [facility] Stop: 11/19/21 12:29 Metoprolol Tartrate (Metoprolol Tartrate 25 Mg Tablet) 25 mg PO TID [facility]; Protocol Pantoprazole Sodium (Pantoprazole Sodium 40 Mg/10 Ml Vial) 40 mg IVPUSH DAILY@0630 [facility] Last Admin: 11/19/21 06:08 Dose: 40 mg Home Medications Medication Instructions Recorded Confirmed Last Taken Type amlodipine 5 mg tablet 1.5 tab PO DAILY 11/18/21 11/18/21 Unknown History atorvastatin 10 mg tablet 1 tab PO DAILY 11/18/21 11/18/21 Unknown History buprenorphine 2 mg-naloxone 0.5 mg 1 strip sublingual DAILY 11/18/21 Unknown History sublingual film docusate sodium 100 mg capsule 1 cap PO DAILY 11/18/21 11/18/21 Unknown History lisinopril 40 mg tablet 1 tab PO DAILY 11/18/21 11/18/21 Unknown History sennosides 8.6 mg tablet (senna) 1 tab PO DAILY 11/18/21 11/18/21 Unknown History Physical Exam Vital Signs: Vital Signs: Last Vital Signs Temp 99.0 F 11/19/21 09:00 Pulse 94 11/19/21 09:00 Resp 15 11/19/21 09:00 BP 127/81 11/19/21 09:00 Pulse Ox 97 11/19/21 09:00 O2 Del Method 11/19/21 09:00 FiO2 40 11/19/21 09:00 BMI result Body Mass Index 26.6 Const: General: well developed and other (Sedated and intubated) Nutritional Appearance: well nourished HEENT: Head: Yes normocephalic Neck: Neck: Yes trachea midline, Yes supple and Yes no JVD Chest: Chest palpation & inspection: normal inspection of the chest Resp: Effort & Inspection: other (Limited exam but clear to auscultation) Cardio: Jugular venous distension: no JVD Palpation: normal PMI Rate: regular rate Rhythm: regular rhythm Heart sounds: S1 normal heart sound present, S2 normal heart sound present, no click, no gallops, no murmurs and no rubs GI: Palpation (GI): Soft to palpation Auscultation: normal bowel sounds Skin: General skin exam: no rashes or lesions noted Neuro: General: other (Unable to assess) Extrem: General: Yes no clubbing, cyanosis or edema Objective Labs and Meds Result diagrams: 11/19/21 04:56 11/19/21 04:56 Lab results: Laboratory Results - last 24 hr 11/18/21 11/18/21 11/18/21 16:26 17:18 17:18 WBC RBC Hgb Hct MCV MCH MCHC RDW Plt Count MPV Immature Gran % (Auto) Neut % (Auto) Lymph % (Auto) [place] % (Auto) Eos % (Auto) Baso % (Auto) Lymph # (Auto) [place] # (Auto) Eos # (Auto) Baso # (Auto) Abs Immat Gran (auto) Absolute Neuts (auto) Absolute Nucleated RBC Nucleated RBC % (auto) PT INR aPTT Heparin Protocol O2 Saturation ABG pH at Pt Temp ABG pCO2 at Pt Temp ABG pO2 at Pt Temp ABG HCO3 ABG Base Excess (Actual) VBG pH VBG pCO2 VBG pO2 VBG HCO3 VBG O2 Saturation VBG Base Excess Sodium Potassium Chloride Carbon Dioxide Anion Gap BUN Creatinine Estim Creat Clear Calc Estimated GFR POC Glucose 198 H Random Glucose Lactic Acid 5.3 H* Lactic Acid F/U @ 2Hr Calcium Phosphorus Magnesium Total Bilirubin Direct Bilirubin AST ALT Alkaline Phosphatase Troponin I High Sens C-Reactive Protein B-Natriuretic Peptide Total Protein Albumin Triglycerides Cholesterol LDL Cholesterol, Calc HDL Cholesterol Procalcitonin Prolactin Urine Color Urine Appearance Urine pH Ur Specific [place] Urine Protein Urine Glucose (UA) Urine Ketones Urine Blood Urine Nitrite Ur Leukocyte Esterase Urine RBC Urine WBC Ur Squamous Epith Cells Amorphous Sediment Urine Bacteria Granular Casts Urine Mucus Gastric Occult Blood Urine Opiates Screen Urine Fentanyl Screen Acetaminophen Ur Barbiturates Screen Ur Phencyclidine Scrn Ur Amphetamines Screen U Benzodiazepines Scrn Urine Cocaine Screen U Marijuana (THC) Screen Ethyl Alcohol < 10 Hep Bs Antigen Hep Bs Antibody Hep B Core Total Ab Hepatitis C Ab (EIA) 11/18/21 11/18/21 11/18/21 17:19 17:19 17:19 WBC 12.8 H RBC 4.64 Hgb 12.9 Hct 41.4 MCV 89.2 MCH 27.8 MCHC 31.2 RDW 13.1 Plt Count 361 MPV 9.2 L Immature Gran % (Auto) 2.7 H Neut % (Auto) 57.1 Lymph % (Auto) 36.8 [place] % (Auto) 3.0 Eos % (Auto) 0.2 Baso % (Auto) 0.2 Lymph # (Auto) 4.7 [place] # (Auto) 0.4 Eos # (Auto) 0.0 Baso # (Auto) 0.0 Abs Immat Gran (auto) 0.35 H Absolute Neuts (auto) 7.3 Absolute Nucleated RBC 0.000 Nucleated RBC % (auto) 0.0 PT INR aPTT Heparin Protocol O2 Saturation ABG pH at Pt Temp ABG pCO2 at Pt Temp ABG pO2 at Pt Temp ABG HCO3 ABG Base Excess (Actual) VBG pH VBG pCO2 VBG pO2 VBG HCO3 VBG O2 Saturation VBG Base Excess Sodium 139 Potassium 3.7 Chloride 106 Carbon Dioxide 17 L Anion Gap 20 BUN 17 H Creatinine 1.33 Estim Creat Clear Calc 41.2 Estimated GFR 41 POC Glucose Random Glucose 209 H Lactic Acid Lactic Acid F/U @ 2Hr Calcium 8.6 Phosphorus Magnesium Total Bilirubin 0.3 Direct Bilirubin AST 512 H ALT 570 H Alkaline Phosphatase 106 Troponin I High Sens 43.0 H C-Reactive Protein B-Natriuretic Peptide Total Protein 6.7 Albumin 4.1 Triglycerides Cholesterol LDL Cholesterol, Calc HDL Cholesterol Procalcitonin Prolactin Urine Color Urine Appearance Urine pH Ur Specific [place] Urine Protein Urine Glucose (UA) Urine Ketones Urine Blood Urine Nitrite Ur Leukocyte Esterase Urine RBC Urine WBC Ur Squamous Epith Cells Amorphous Sediment Urine Bacteria Granular Casts Urine Mucus Gastric Occult Blood Urine Opiates Screen Urine Fentanyl Screen Acetaminophen Ur Barbiturates Screen Ur Phencyclidine Scrn Ur Amphetamines Screen U Benzodiazepines Scrn Urine Cocaine Screen U Marijuana (THC) Screen Ethyl Alcohol Hep Bs Antigen Hep Bs Antibody Hep B Core Total Ab Hepatitis C Ab (EIA) 11/18/21 11/18/21 11/18/21 17:30 19:23 19:23 WBC RBC Hgb Hct MCV MCH MCHC RDW Plt Count MPV Immature Gran % (Auto) Neut % (Auto) Lymph % (Auto) [place] % (Auto) Eos % (Auto) Baso % (Auto) Lymph # (Auto) [place] # (Auto) Eos # (Auto) Baso # (Auto) Abs Immat Gran (auto) Absolute Neuts (auto) Absolute Nucleated RBC Nucleated RBC % (auto) PT INR aPTT Heparin Protocol O2 Saturation 100.0 ABG pH at Pt Temp 7.30 L ABG pCO2 at Pt Temp 29 L ABG pO2 at Pt Temp 294 H ABG HCO3 14 L ABG Base Excess (Actual) -10.3 VBG pH VBG pCO2 VBG pO2 VBG HCO3 VBG O2 Saturation VBG Base Excess Sodium Potassium Chloride Carbon Dioxide Anion Gap BUN Creatinine Estim Creat Clear Calc Estimated GFR POC Glucose Random Glucose Lactic Acid Lactic Acid F/U @ 2Hr Calcium Phosphorus Magnesium Total Bilirubin Direct Bilirubin AST ALT Alkaline Phosphatase Troponin I High Sens C-Reactive Protein B-Natriuretic Peptide Total Protein Albumin Triglycerides Cholesterol LDL Cholesterol, Calc HDL Cholesterol Procalcitonin Prolactin Urine Color STRAW Urine Appearance HAZY Urine pH 7.5 Ur Specific [place] 1.020 Urine Protein 2+ H Urine Glucose (UA) 100 H Urine Ketones NEG Urine Blood 3+ H Urine Nitrite NEG Ur Leukocyte Esterase NEG Urine RBC 30-49 H Urine WBC 1-4 Ur Squamous Epith Cells 2+ Amorphous Sediment 2+ Urine Bacteria 1+ Granular Casts 1-4 Urine Mucus 1+ Gastric Occult Blood Urine Opiates Screen Not Detected Urine Fentanyl Screen Not Detected Acetaminophen Ur Barbiturates Screen Not Detected Ur Phencyclidine Scrn Not Detected Ur Amphetamines Screen Not Detected U Benzodiazepines Scrn Not Detected Urine Cocaine Screen Not Detected U Marijuana (THC) Screen POSITIVE H Ethyl Alcohol Hep Bs Antigen Hep Bs Antibody Hep B Core Total Ab Hepatitis C Ab (EIA) 11/18/21 11/18/21 11/18/21 20:35 20:35 20:36 WBC RBC Hgb Hct MCV MCH MCHC RDW Plt Count MPV Immature Gran % (Auto) Neut % (Auto) Lymph % (Auto) [place] % (Auto) Eos % (Auto) Baso % (Auto) Lymph # (Auto) [place] # (Auto) Eos # (Auto) Baso # (Auto) Abs Immat Gran (auto) Absolute Neuts (auto) Absolute Nucleated RBC Nucleated RBC % (auto) PT INR aPTT Heparin Protocol O2 Saturation ABG pH at Pt Temp ABG pCO2 at Pt Temp ABG pO2 at Pt Temp ABG HCO3 ABG Base Excess (Actual) VBG pH VBG pCO2 VBG pO2 VBG HCO3 VBG O2 Saturation VBG Base Excess Sodium Potassium Chloride Carbon Dioxide Anion Gap BUN Creatinine Estim Creat Clear Calc Estimated GFR POC Glucose Random Glucose Lactic Acid Lactic Acid F/U @ 2Hr Calcium Phosphorus 4.5 Magnesium 1.6 Total Bilirubin Direct Bilirubin AST ALT Alkaline Phosphatase Troponin I High Sens 1143.8 H* D C-Reactive Protein B-Natriuretic Peptide Total Protein Albumin Triglycerides Cholesterol LDL Cholesterol, Calc HDL Cholesterol Procalcitonin 0.28 Prolactin Urine Color Urine Appearance Urine pH Ur Specific [place] Urine Protein Urine Glucose (UA) Urine Ketones Urine Blood Urine Nitrite Ur Leukocyte Esterase Urine RBC Urine WBC Ur Squamous Epith Cells Amorphous Sediment Urine Bacteria Granular Casts Urine Mucus Gastric Occult Blood Urine Opiates Screen Urine Fentanyl Screen Acetaminophen < 1 Ur Barbiturates Screen Ur Phencyclidine Scrn Ur Amphetamines Screen U Benzodiazepines Scrn Urine Cocaine Screen U Marijuana (THC) Screen Ethyl Alcohol Hep Bs Antigen Hep Bs Antibody Hep B Core Total Ab Hepatitis C Ab (EIA) 11/18/21 11/18/21 11/18/21 20:36 20:36 20:44 WBC RBC Hgb Hct MCV MCH MCHC RDW Plt Count MPV Immature Gran % (Auto) Neut % (Auto) Lymph % (Auto) [place] % (Auto) Eos % (Auto) Baso % (Auto) Lymph # (Auto) [place] # (Auto) Eos # (Auto) Baso # (Auto) Abs Immat Gran (auto) Absolute Neuts (auto) Absolute Nucleated RBC Nucleated RBC % (auto) PT INR aPTT Heparin Protocol O2 Saturation ABG pH at Pt Temp ABG pCO2 at Pt Temp ABG pO2 at Pt Temp ABG HCO3 ABG Base Excess (Actual) VBG pH 7.31 L VBG pCO2 35 VBG pO2 144 VBG HCO3 17 L VBG O2 Saturation 100.0 VBG Base Excess -7.4 Sodium Potassium Chloride Carbon Dioxide Anion Gap BUN Creatinine Estim Creat Clear Calc Estimated GFR POC Glucose Random Glucose Lactic Acid Lactic Acid F/U @ 2Hr 0.9 Calcium Phosphorus Magnesium Total Bilirubin Direct Bilirubin AST ALT Alkaline Phosphatase Troponin I High Sens C-Reactive Protein B-Natriuretic Peptide Total Protein Albumin Triglycerides Cholesterol LDL Cholesterol, Calc HDL Cholesterol Procalcitonin Prolactin Cancelled Urine Color Urine Appearance Urine pH Ur Specific [place] Urine Protein Urine Glucose (UA) Urine Ketones Urine Blood Urine Nitrite Ur Leukocyte Esterase Urine RBC Urine WBC Ur Squamous Epith Cells Amorphous Sediment Urine Bacteria Granular Casts Urine Mucus Gastric Occult Blood Urine Opiates Screen Urine Fentanyl Screen Acetaminophen Ur Barbiturates Screen Ur Phencyclidine Scrn Ur Amphetamines Screen U Benzodiazepines Scrn Urine Cocaine Screen U Marijuana (THC) Screen Ethyl Alcohol Hep Bs Antigen Hep Bs Antibody Hep B Core Total Ab Hepatitis C Ab (EIA) 11/18/21 11/18/21 11/18/21 23:22 23:31 23:31 WBC RBC Hgb Hct MCV MCH MCHC RDW Plt Count MPV Immature Gran % (Auto) Neut % (Auto) Lymph % (Auto) [place] % (Auto) Eos % (Auto) Baso % (Auto) Lymph # (Auto) [place] # (Auto) Eos # (Auto) Baso # (Auto) Abs Immat Gran (auto) Absolute Neuts (auto) Absolute Nucleated RBC Nucleated RBC % (auto) PT 11.3 INR 1.0 aPTT Heparin Protocol 31.5 L O2 Saturation ABG pH at Pt Temp ABG pCO2 at Pt Temp ABG pO2 at Pt Temp ABG HCO3 ABG Base Excess (Actual) VBG pH VBG pCO2 VBG pO2 VBG HCO3 VBG O2 Saturation VBG Base Excess Sodium Potassium Chloride Carbon Dioxide Anion Gap BUN Creatinine Estim Creat Clear Calc Estimated GFR POC Glucose Random Glucose Lactic Acid Lactic Acid F/U @ 2Hr Calcium Phosphorus Magnesium Total Bilirubin Direct Bilirubin AST ALT Alkaline Phosphatase Troponin I High Sens 1819.1 H* D C-Reactive Protein B-Natriuretic Peptide 140 H Total Protein Albumin Triglycerides Cholesterol LDL Cholesterol, Calc HDL Cholesterol Procalcitonin Prolactin Urine Color Urine Appearance Urine pH Ur Specific [place] Urine Protein Urine Glucose (UA) Urine Ketones Urine Blood Urine Nitrite Ur Leukocyte Esterase Urine RBC Urine WBC Ur Squamous Epith Cells Amorphous Sediment Urine Bacteria Granular Casts Urine Mucus Gastric Occult Blood NEGATIVE Urine Opiates Screen Urine Fentanyl Screen Acetaminophen Ur Barbiturates Screen Ur Phencyclidine Scrn Ur Amphetamines Screen U Benzodiazepines Scrn Urine Cocaine Screen U Marijuana (THC) Screen Ethyl Alcohol Hep Bs Antigen Hep Bs Antibody Hep B Core Total Ab Hepatitis C Ab (EIA) 11/19/21 11/19/21 11/19/21 01:07 04:56 04:56 WBC 12.8 H RBC 4.27 Hgb 12.1 Hct 36.6 L MCV 85.7 MCH 28.3 MCHC 33.1 RDW 13.2 Plt Count 298 MPV 8.7 L Immature Gran % (Auto) 0.4 Neut % (Auto) 88.9 H Lymph % (Auto) 5.7 L [place] % (Auto) 4.9 Eos % (Auto) 0.0 Baso % (Auto) 0.1 Lymph # (Auto) 0.7 L [place] # (Auto) 0.6 Eos # (Auto) 0.0 Baso # (Auto) 0.0 Abs Immat Gran (auto) 0.05 H Absolute Neuts (auto) 11.3 H Absolute Nucleated RBC 0.000 Nucleated RBC % (auto) 0.0 PT INR aPTT Heparin Protocol O2 Saturation ABG pH at Pt Temp ABG pCO2 at Pt Temp ABG pO2 at Pt Temp ABG HCO3 ABG Base Excess (Actual) VBG pH VBG pCO2 VBG pO2 VBG HCO3 VBG O2 Saturation VBG Base Excess Sodium 140 Potassium 3.0 L Chloride 106 Carbon Dioxide 25 Anion Gap 12 BUN 16 Creatinine 0.71 Estim Creat Clear Calc 77.3 Estimated GFR > 60 POC Glucose 128 H Random Glucose 130 H Lactic Acid Lactic Acid F/U @ 2Hr Calcium 8.1 L Phosphorus Magnesium Total Bilirubin 0.6 Direct Bilirubin 0.3 AST 399 H ALT 430 H Alkaline Phosphatase 75 D Troponin I High Sens C-Reactive Protein 2.64 H B-Natriuretic Peptide Total Protein 6.2 L Albumin 3.9 Triglycerides 51 Cholesterol 170 LDL Cholesterol, Calc 91 HDL Cholesterol 69 Procalcitonin Prolactin Urine Color Urine Appearance Urine pH Ur Specific [place] Urine Protein Urine Glucose (UA) Urine Ketones Urine Blood Urine Nitrite Ur Leukocyte Esterase Urine RBC Urine WBC Ur Squamous Epith Cells Amorphous Sediment Urine Bacteria Granular Casts Urine Mucus Gastric Occult Blood Urine Opiates Screen Urine Fentanyl Screen Acetaminophen Ur Barbiturates Screen Ur Phencyclidine Scrn Ur Amphetamines Screen U Benzodiazepines Scrn Urine Cocaine Screen U Marijuana (THC) Screen Ethyl Alcohol Hep Bs Antigen Hep Bs Antibody Hep B Core Total Ab Hepatitis C Ab (EIA) 11/19/21 11/19/21 11/19/21 04:56 04:56 05:00 WBC RBC Hgb Hct MCV MCH MCHC RDW Plt Count MPV Immature Gran % (Auto) Neut % (Auto) Lymph % (Auto) [place] % (Auto) Eos % (Auto) Baso % (Auto) Lymph # (Auto) [place] # (Auto) Eos # (Auto) Baso # (Auto) Abs Immat Gran (auto) Absolute Neuts (auto) Absolute Nucleated RBC Nucleated RBC % (auto) PT INR aPTT Heparin Protocol O2 Saturation ABG pH at Pt Temp ABG pCO2 at Pt Temp ABG pO2 at Pt Temp ABG HCO3 ABG Base Excess (Actual) VBG pH 7.47 H VBG pCO2 33 VBG pO2 48 VBG HCO3 24 VBG O2 Saturation 82.0 VBG Base Excess 1.3 Sodium Potassium Chloride Carbon Dioxide Anion Gap BUN Creatinine Estim Creat Clear Calc Estimated GFR POC Glucose Random Glucose Lactic Acid Lactic Acid F/U @ 2Hr Calcium Phosphorus Magnesium Total Bilirubin Direct Bilirubin AST ALT Alkaline Phosphatase Troponin I High Sens 1130.8 H* C-Reactive Protein B-Natriuretic Peptide Total Protein Albumin Triglycerides Cholesterol LDL Cholesterol, Calc HDL Cholesterol Procalcitonin Prolactin Urine Color Urine Appearance Urine pH Ur Specific [place] Urine Protein Urine Glucose (UA) Urine Ketones Urine Blood Urine Nitrite Ur Leukocyte Esterase Urine RBC Urine WBC Ur Squamous Epith Cells Amorphous Sediment Urine Bacteria Granular Casts Urine Mucus Gastric Occult Blood Urine Opiates Screen Urine Fentanyl Screen Acetaminophen Ur Barbiturates Screen Ur Phencyclidine Scrn Ur Amphetamines Screen U Benzodiazepines Scrn Urine Cocaine Screen U Marijuana (THC) Screen Ethyl Alcohol Hep Bs Antigen Negative Hep Bs Antibody REACTIVE Hep B Core Total Ab Nonreactive Hepatitis C Ab (EIA) Nonreactive 11/19/21 06:48 WBC RBC Hgb Hct MCV MCH MCHC RDW Plt Count MPV Immature Gran % (Auto) Neut % (Auto) Lymph % (Auto) [place] % (Auto) Eos % (Auto) Baso % (Auto) Lymph # (Auto) [place] # (Auto) Eos # (Auto) Baso # (Auto) Abs Immat Gran (auto) Absolute Neuts (auto) Absolute Nucleated RBC Nucleated RBC % (auto) PT INR aPTT Heparin Protocol 82.0 H D O2 Saturation ABG pH at Pt Temp ABG pCO2 at Pt Temp ABG pO2 at Pt Temp ABG HCO3 ABG Base Excess (Actual) VBG pH VBG pCO2 VBG pO2 VBG HCO3 VBG O2 Saturation VBG Base Excess Sodium Potassium Chloride Carbon Dioxide Anion Gap BUN Creatinine Estim Creat Clear Calc Estimated GFR POC Glucose Random Glucose Lactic Acid Lactic Acid F/U @ 2Hr Calcium Phosphorus Magnesium Total Bilirubin Direct Bilirubin AST ALT Alkaline Phosphatase Troponin I High Sens C-Reactive Protein B-Natriuretic Peptide Total Protein Albumin Triglycerides Cholesterol LDL Cholesterol, Calc HDL Cholesterol Procalcitonin Prolactin Urine Color Urine Appearance Urine pH Ur Specific [place] Urine Protein Urine Glucose (UA) Urine Ketones Urine Blood Urine Nitrite Ur Leukocyte Esterase Urine RBC Urine WBC Ur Squamous Epith Cells Amorphous Sediment Urine Bacteria Granular Casts Urine Mucus Gastric Occult Blood Urine Opiates Screen Urine Fentanyl Screen Acetaminophen Ur Barbiturates Screen Ur Phencyclidine Scrn Ur Amphetamines Screen U Benzodiazepines Scrn Urine Cocaine Screen U Marijuana (THC) Screen Ethyl Alcohol Hep Bs Antigen Hep Bs Antibody Hep B Core Total Ab Hepatitis C Ab (EIA) Imaging Radiologist's impression: Impressions Chest X-Ray 11/18/21 17:20 IMPRESSION: ET tube, gastric tube and right IJ central line catheter in place properly positioned. Lungs are clear. Head CT 11/18/21 17:43 IMPRESSION: No acute intracranial pathology. Abdomen/Pelvis CT 11/18/21 20:18 IMPRESSION: Multiple prominent small bowel loops and colon with air-fluid collection but no major distention likely generalized ileus. There is moderate stool in the sigmoid colon and the rectum region which could be contributing 2 sluggish colonic peristalsis The Blue's catheter and enteric tube are in good position. Probable hemangioma right hepatic lobe Fleischner guidelines were followed. Assessment and Plan (1) Cardiac arrest: Status: Acute Patient with cardiac arrest with unclear down time with return of spontaneous circulation with CPR and epinephrine after 3 shocks. Patient noted to have elevated troponin which are most likely suggestive of acute coronary syndrome with echocardiographic finding consistent with depressed LV systolic function and regional wall motion artery which may suggest underlying coronary artery disease. I will continue with her current treatment with aspirin, IV heparin, metoprolol and statins. Once she is more hemodynamically stable can add other neurohormonal modulation. No clinical signs of heart failure at this point time. No significant arrhythmias noted. Neurology evaluation for brain function is important for further management plan. If there is reasonable chance of neurologic recovery, would pursue invasive cardiac catheterization to evaluate coronary anatomy with cardiac catheterization. This was discussed with the intensive unit team and will further dictate treatment based on the neurology evaluation. Have tried to contact the significant other via phone. Waiting to speak to him. Overall prognosis is guarded. Continue supportive management as per the critical care team. Will follow with you. Thank you for allowing me to partake in her care Procedures Date of Service Date of Service: 11/19/21
[2021-11-19] MEDS: Aspirin 81 MG TAB.CHEW 324 MG PO (09:57)
--- NOTE | 2021-11-19 10:00 | P.PNCC_ITS ---
Subjective Subjective Date of Service: 11/19/21 Interval History: Mrs. Francis was admitted to ICU last night after resusc from [id number] cardiac arrest. The patient is a 55-year-old female w PMHx of prescription drug abuse for about 3 years, on methadone since June; hypertension; hyperlipidemia; and current every day smoker.? 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 Yesterday, the patient was in her usual state of health, at work in the dental office.? In the early afternoon she complained of a headache. ?Sometime later, she was found slumped over, perhaps seizing.? EMS was called.? A BLS crew responded.? At this time I don?t have reliable info regarding subsequent events, we?re trying to get the EMS run sheet.? The patient was BIBA to the ED with CPR in progress.? In the ED, CPR was continued, an IO device was placed, the patient was given 2 rounds of epinephrine, and ROSC was obtained after approximately 5 minutes of CPR in the ED.? The patient was intubated and a CVL was placed.? She was hemod stable, needing no pressors.? FiO2 was weaned rapidly. ED workup was notable for a white count 12.8, Hgb 12.9.? Sodium 139, potassium 3.7, bicarb 17, anion gap 20, BUN/creat 17/1.3, random glucose 209, Transa minases moderately elevated, lactic acid 5.3, troponin 43, BNP 140, ABG (reportedly on 50% FiO2) showed 7.3/29/294/14.? Urine negative with a blood alcohol level less than 10.? CXR and head CT negative.? Abdominal CT with IV contrast was notable for probable hemangioma of the right hepatic lobe, and moderate stool in the sigmoid colon and rectum. Initial EKG at 20:[address] 124bpm, loss of R-waves V1 and V2, maybe 1/[address] depression in V3-6nd lead 3 age-indeterminate changes.? F/U EKG at 9:37 pm showed additional ? Q waves in III and aVF, otherwise similar. The patient was admitted to the ICU.? Bedside echo showed ? RWMAs.? IVC 2.2 cm in diameter w good insp collapse.? In the ICU, she appeared to have some tonic clonic activity, which resolved with a bolus of Ativan.? She was therefore put on a propofol infusion and had no further seizure/myoclonus overnight.? First repeat troponin was 1143, and a 2nd repeat troponin at 23:00 was 1819.? She was ventilated on PSV mode overnight.? She was put on a heparin drip, along with ASA, statin, and beta shante.? TTM was attained using a cooling blanket to maintain her temp < 98.6?. The patient was stable overnight.? This morning, I turned the propofol off about 15 min ago.? HR is 102, SR.? BP 146/95.? On PSV 6/21%/+5, RR was 18, Vt 460cc, Ve 8.4L, PIP 13cm, ETCO2 28mm, Sat 96%.? This morning's CVBG shows 7.47/33/+1.? Current temp 99.0?? Tmax 100.0? at 5am.? No JVD at 30?.? Chest is CTA.? Heart rate and rhythm are regular, with normal-sounding S1 and S2, with no murmur or gallops.? The abdomen is benign.? She has no peripheral edema.? Neuro exam:? Positive corneals, positive doll's eyes.? Babinski?s flat.? PERRL, about 4mm.? No response to painful stimulation.? I?ve seen no posturing.? No sz activity or myoclonus since we turned the propofol off. LABORATORY DATA:? As below.? Notably, BUN/creatinine are 16/0.7, sodium is 140, potassium 3.0, bicarb 25, no magnesium or phos done this morning.? AST and ALT are both coming down.? Troponin is 1130.? 2 minutes is 3.9. ECHOCARDIOGRAM this morning:? Normal wall thickness.? At least moderate global LV dysfunction with regional wall motion abnormalities.? Septum looks akinetic.? LV EF approximately 30%.? RV size and function looks normal.? No significant valvular abnormalities by Doppler.? PA pressure is normal.? IVC measured 1.36 cm with at least 30% inspiratory collapse. IMPRESSION: 1. Underlying history of drug abuse on methadone 2. Status post OOHCA.? Waiting for the ambulance report for further details of the event. 3. Precipitating etiology likely ACS/acute OR.? (The methadone causing torsades is also in the back of my mind, but that wouldn?t account for her echo findings and trop elevations.)? We have her now on heparin gtt, ASA, statin, beta shante.? Currently hemod stable. 4. ? post event seizures.? No further seizures overnight or this morning.? EEG is pending. 5. Coma.? 2? anoxic encephalopathy.? EEG pending.? Discussed with Dr. Ramos. 6. Acute respiratory failure.? 2? above 7. Transaminitis likely 2? shock liver. 8. Reactive leukocytosis 9. Incidental Liver Hemangioma 10. Hypokalemia and hypomagnesemia.? Repleting aggressively with potassium and magnesium. Plan EEG and neuro eval.? If OK, consider transfer [place] [facility] [place]. ?Discussed with Dr. Pulliam at length.? I spoke with the patient?s this morning and updated him on our thinking about what happened, her current condition, and proposed management. ADDENDUM:? At about 10:30am, the patient had 39 beat run of VT that terminated spontaneously.? She remains hemodynamically stable.? We are aggressively repleting potassium and magnesium.? Starting her on amiodarone drip per Dr. Iris day?s suggestion.. ADDENDUM:? Information from the ambulance run sheet:? Call received by EMS yesterday at 16:03.? Ambulance arrived at the scene at 16:06.? Ambulance left the scene at 16:18.? Arrived at [facility] ED at 16:21. At the scene:? The ambulance arrived to the scene approximately 5 minutes after the patient became unresponsive. ?On arrival of the ambulance crew, the patient was apneic and pulseless.? No bystander CPR had been administered. ?CPR was begun, w bag valve mask ventilation.? An AED delivered 1 shock.? A 2nd shock was delivered two minutes later.? A 3rd shock was administered enroute to the hospital.? Narcan 2 mg intranasal was administered enroute to the hospital.? The crew offloaded the patient w CPR ongoing and brought the patient into the ED w CPR ongoing. Summary of approximate time course: 5 minutes of cardiac arrest prior to beginning CPR. 20 minutes duration of CPR until ROSC. Critical care time: ?2+ hours. Critical Care Time (minutes): 120 Physical Exam Vital Signs: Vital Signs: Last Vital Signs Temp 99.0 F 11/19/21 09:00 Pulse 94 11/19/21 09:00 Resp 15 11/19/21 09:00 BP 127/81 11/19/21 09:00 Pulse Ox 97 11/19/21 09:00 O2 Del Method 11/19/21 09:00 FiO2 40 11/19/21 09:00 BMI result Body Mass Index 26.6 Objective Data Labs CBC & Chem 7: 11/19/21 04:56 11/19/21 04:56 Labs: Laboratory Results - last 24 hr 11/18/21 11/18/21 11/18/21 16:26 17:18 17:18 WBC RBC Hgb Hct MCV MCH MCHC RDW Plt Count MPV Immature Gran % (Auto) Neut % (Auto) Lymph % (Auto) [place] % (Auto) Eos % (Auto) Baso % (Auto) Lymph # (Auto) [place] # (Auto) Eos # (Auto) Baso # (Auto) Abs Immat Gran (auto) Absolute Neuts (auto) Absolute Nucleated RBC Nucleated RBC % (auto) PT INR aPTT Heparin Protocol O2 Saturation ABG pH at Pt Temp ABG pCO2 at Pt Temp ABG pO2 at Pt Temp ABG HCO3 ABG Base Excess (Actual) VBG pH VBG pCO2 VBG pO2 VBG HCO3 VBG O2 Saturation VBG Base Excess Sodium Potassium Chloride Carbon Dioxide Anion Gap BUN Creatinine Estim Creat Clear Calc Estimated GFR POC Glucose 198 H Random Glucose Lactic Acid 5.3 H* Lactic Acid F/U @ 2Hr Calcium Phosphorus Magnesium Total Bilirubin Direct Bilirubin AST ALT Alkaline Phosphatase Troponin I High Sens C-Reactive Protein B-Natriuretic Peptide Total Protein Albumin Triglycerides Cholesterol LDL Cholesterol, Calc HDL Cholesterol Procalcitonin Prolactin Urine Color Urine Appearance Urine pH Ur Specific [place] Urine Protein Urine Glucose (UA) Urine Ketones Urine Blood Urine Nitrite Ur Leukocyte Esterase Urine RBC Urine WBC Ur Squamous Epith Cells Amorphous Sediment Urine Bacteria Granular Casts Urine Mucus Gastric Occult Blood Urine Opiates Screen Urine Fentanyl Screen Acetaminophen Ur Barbiturates Screen Ur Phencyclidine Scrn Ur Amphetamines Screen U Benzodiazepines Scrn Urine Cocaine Screen U Marijuana (THC) Screen Ethyl Alcohol < 10 Hep Bs Antigen Hep Bs Antibody Hep B Core Total Ab Hepatitis C Ab (EIA) 11/18/21 11/18/21 11/18/21 17:19 17:19 17:19 WBC 12.8 H RBC 4.64 Hgb 12.9 Hct 41.4 MCV 89.2 MCH 27.8 MCHC 31.2 RDW 13.1 Plt Count 361 MPV 9.2 L Immature Gran % (Auto) 2.7 H Neut % (Auto) 57.1 Lymph % (Auto) 36.8 [place] % (Auto) 3.0 Eos % (Auto) 0.2 Baso % (Auto) 0.2 Lymph # (Auto) 4.7 [place] # (Auto) 0.4 Eos # (Auto) 0.0 Baso # (Auto) 0.0 Abs Immat Gran (auto) 0.35 H Absolute Neuts (auto) 7.3 Absolute Nucleated RBC 0.000 Nucleated RBC % (auto) 0.0 PT INR aPTT Heparin Protocol O2 Saturation ABG pH at Pt Temp ABG pCO2 at Pt Temp ABG pO2 at Pt Temp ABG HCO3 ABG Base Excess (Actual) VBG pH VBG pCO2 VBG pO2 VBG HCO3 VBG O2 Saturation VBG Base Excess Sodium 139 Potassium 3.7 Chloride 106 Carbon Dioxide 17 L Anion Gap 20 BUN 17 H Creatinine 1.33 Estim Creat Clear Calc 41.2 Estimated GFR 41 POC Glucose Random Glucose 209 H Lactic Acid Lactic Acid F/U @ 2Hr Calcium 8.6 Phosphorus Magnesium Total Bilirubin 0.3 Direct Bilirubin AST 512 H ALT 570 H Alkaline Phosphatase 106 Troponin I High Sens 43.0 H C-Reactive Protein B-Natriuretic Peptide Total Protein 6.7 Albumin 4.1 Triglycerides Cholesterol LDL Cholesterol, Calc HDL Cholesterol Procalcitonin Prolactin Urine Color Urine Appearance Urine pH Ur Specific [place] Urine Protein Urine Glucose (UA) Urine Ketones Urine Blood Urine Nitrite Ur Leukocyte Esterase Urine RBC Urine WBC Ur Squamous Epith Cells Amorphous Sediment Urine Bacteria Granular Casts Urine Mucus Gastric Occult Blood Urine Opiates Screen Urine Fentanyl Screen Acetaminophen Ur Barbiturates Screen Ur Phencyclidine Scrn Ur Amphetamines Screen U Benzodiazepines Scrn Urine Cocaine Screen U Marijuana (THC) Screen Ethyl Alcohol Hep Bs Antigen Hep Bs Antibody Hep B Core Total Ab Hepatitis C Ab (EIA) 11/18/21 11/18/21 11/18/21 17:30 19:23 19:23 WBC RBC Hgb Hct MCV MCH MCHC RDW Plt Count MPV Immature Gran % (Auto) Neut % (Auto) Lymph % (Auto) [place] % (Auto) Eos % (Auto) Baso % (Auto) Lymph # (Auto) [place] # (Auto) Eos # (Auto) Baso # (Auto) Abs Immat Gran (auto) Absolute Neuts (auto) Absolute Nucleated RBC Nucleated RBC % (auto) PT INR aPTT Heparin Protocol O2 Saturation 100.0 ABG pH at Pt Temp 7.30 L ABG pCO2 at Pt Temp 29 L ABG pO2 at Pt Temp 294 H ABG HCO3 14 L ABG Base Excess (Actual) -10.3 VBG pH VBG pCO2 VBG pO2 VBG HCO3 VBG O2 Saturation VBG Base Excess Sodium Potassium Chloride Carbon Dioxide Anion Gap BUN Creatinine Estim Creat Clear Calc Estimated GFR POC Glucose Random Glucose Lactic Acid Lactic Acid F/U @ 2Hr Calcium Phosphorus Magnesium Total Bilirubin Direct Bilirubin AST ALT Alkaline Phosphatase Troponin I High Sens C-Reactive Protein B-Natriuretic Peptide Total Protein Albumin Triglycerides Cholesterol LDL Cholesterol, Calc HDL Cholesterol Procalcitonin Prolactin Urine Color STRAW Urine Appearance HAZY Urine pH 7.5 Ur Specific [place] 1.020 Urine Protein 2+ H Urine Glucose (UA) 100 H Urine Ketones NEG Urine Blood 3+ H Urine Nitrite NEG Ur Leukocyte Esterase NEG Urine RBC 30-49 H Urine WBC 1-4 Ur Squamous Epith Cells 2+ Amorphous Sediment 2+ Urine Bacteria 1+ Granular Casts 1-4 Urine Mucus 1+ Gastric Occult Blood Urine Opiates Screen Not Detected Urine Fentanyl Screen Not Detected Acetaminophen Ur Barbiturates Screen Not Detected Ur Phencyclidine Scrn Not Detected Ur Amphetamines Screen Not Detected U Benzodiazepines Scrn Not Detected Urine Cocaine Screen Not Detected U Marijuana (THC) Screen POSITIVE H Ethyl Alcohol Hep Bs Antigen Hep Bs Antibody Hep B Core Total Ab Hepatitis C Ab (EIA) 11/18/21 11/18/21 11/18/21 20:35 20:35 20:36 WBC RBC Hgb Hct MCV MCH MCHC RDW Plt Count MPV Immature Gran % (Auto) Neut % (Auto) Lymph % (Auto) [place] % (Auto) Eos % (Auto) Baso % (Auto) Lymph # (Auto) [place] # (Auto) Eos # (Auto) Baso # (Auto) Abs Immat Gran (auto) Absolute Neuts (auto) Absolute Nucleated RBC Nucleated RBC % (auto) PT INR aPTT Heparin Protocol O2 Saturation ABG pH at Pt Temp ABG pCO2 at Pt Temp ABG pO2 at Pt Temp ABG HCO3 ABG Base Excess (Actual) VBG pH VBG pCO2 VBG pO2 VBG HCO3 VBG O2 Saturation VBG Base Excess Sodium Potassium Chloride Carbon Dioxide Anion Gap BUN Creatinine Estim Creat Clear Calc Estimated GFR POC Glucose Random Glucose Lactic Acid Lactic Acid F/U @ 2Hr Calcium Phosphorus 4.5 Magnesium 1.6 Total Bilirubin Direct Bilirubin AST ALT Alkaline Phosphatase Troponin I High Sens 1143.8 H* D C-Reactive Protein B-Natriuretic Peptide Total Protein Albumin Triglycerides Cholesterol LDL Cholesterol, Calc HDL Cholesterol Procalcitonin 0.28 Prolactin Urine Color Urine Appearance Urine pH Ur Specific [place] Urine Protein Urine Glucose (UA) Urine Ketones Urine Blood Urine Nitrite Ur Leukocyte Esterase Urine RBC Urine WBC Ur Squamous Epith Cells Amorphous Sediment Urine Bacteria Granular Casts Urine Mucus Gastric Occult Blood Urine Opiates Screen Urine Fentanyl Screen Acetaminophen < 1 Ur Barbiturates Screen Ur Phencyclidine Scrn Ur Amphetamines Screen U Benzodiazepines Scrn Urine Cocaine Screen U Marijuana (THC) Screen Ethyl Alcohol Hep Bs Antigen Hep Bs Antibody Hep B Core Total Ab Hepatitis C Ab (EIA) 11/18/21 11/18/21 11/18/21 20:36 20:36 20:44 WBC RBC Hgb Hct MCV MCH MCHC RDW Plt Count MPV Immature Gran % (Auto) Neut % (Auto) Lymph % (Auto) [place] % (Auto) Eos % (Auto) Baso % (Auto) Lymph # (Auto) [place] # (Auto) Eos # (Auto) Baso # (Auto) Abs Immat Gran (auto) Absolute Neuts (auto) Absolute Nucleated RBC Nucleated RBC % (auto) PT INR aPTT Heparin Protocol O2 Saturation ABG pH at Pt Temp ABG pCO2 at Pt Temp ABG pO2 at Pt Temp ABG HCO3 ABG Base Excess (Actual) VBG pH 7.31 L VBG pCO2 35 VBG pO2 144 VBG HCO3 17 L VBG O2 Saturation 100.0 VBG Base Excess -7.4 Sodium Potassium Chloride Carbon Dioxide Anion Gap BUN Creatinine Estim Creat Clear Calc Estimated GFR POC Glucose Random Glucose Lactic Acid Lactic Acid F/U @ 2Hr 0.9 Calcium Phosphorus Magnesium Total Bilirubin Direct Bilirubin AST ALT Alkaline Phosphatase Troponin I High Sens C-Reactive Protein B-Natriuretic Peptide Total Protein Albumin Triglycerides Cholesterol LDL Cholesterol, Calc HDL Cholesterol Procalcitonin Prolactin Cancelled Urine Color Urine Appearance Urine pH Ur Specific [place] Urine Protein Urine Glucose (UA) Urine Ketones Urine Blood Urine Nitrite Ur Leukocyte Esterase Urine RBC Urine WBC Ur Squamous Epith Cells Amorphous Sediment Urine Bacteria Granular Casts Urine Mucus Gastric Occult Blood Urine Opiates Screen Urine [place]entanyl Screen Acetaminophen Ur Barbiturates Screen Ur Phencyclidine Scrn Ur Amphetamines Screen U Benzodiazepines Scrn Urine Cocaine Screen U Marijuana (THC) Screen Ethyl Alcohol Hep Bs Antigen Hep Bs Antibody Hep B Core Total Ab Hepatitis C Ab (EIA) 11/18/21 11/18/21 11/18/21 23:22 23:31 23:31 WBC RBC Hgb Hct MCV MCH MCHC RDW Plt Count MPV Immature Gran % (Auto) Neut % (Auto) Lymph % (Auto) [place] % (Auto) Eos % (Auto) Baso % (Auto) Lymph # (Auto) [place] # (Auto) Eos # (Auto) Baso # (Auto) Abs Immat Gran (auto) Absolute Neuts (auto) Absolute Nucleated RBC Nucleated RBC % (auto) PT 11.3 INR 1.0 aPTT Heparin Protocol 31.5 L O2 Saturation ABG pH at Pt Temp ABG pCO2 at Pt Temp ABG pO2 at Pt Temp ABG HCO3 ABG Base Excess (Actual) VBG pH VBG pCO2 VBG pO2 VBG HCO3 VBG O2 Saturation VBG Base Excess Sodium Potassium Chloride Carbon Dioxide Anion Gap BUN Creatinine Estim Creat Clear Calc Estimated GFR POC Glucose Random Glucose Lactic Acid Lactic Acid F/U @ 2Hr Calcium Phosphorus Magnesium Total Bilirubin Direct Bilirubin AST ALT Alkaline Phosphatase Troponin I High Sens 1819.1 H* D C-Reactive Protein B-Natriuretic Peptide 140 H Total Protein Albumin Triglycerides Cholesterol LDL Cholesterol, Calc HDL Cholesterol Procalcitonin Prolactin Urine Color Urine Appearance Urine pH Ur Specific [place] Urine Protein Urine Glucose (UA) Urine Ketones Urine Blood Urine Nitrite Ur Leukocyte Esterase Urine RBC Urine WBC Ur Squamous Epith Cells Amorphous Sediment Urine Bacteria Granular Casts Urine Mucus Gastric Occult Blood NEGATIVE Urine Opiates Screen Urine [place]entanyl Screen Acetaminophen Ur Barbiturates Screen Ur Phencyclidine Scrn Ur Amphetamines Screen U Benzodiazepines Scrn Urine Cocaine Screen U Marijuana (THC) Screen Ethyl Alcohol Hep Bs Antigen Hep Bs Antibody Hep B Core Total Ab Hepatitis C Ab (EIA) 11/19/21 11/19/21 11/19/21 01:07 04:56 04:56 WBC 12.8 H RBC 4.27 Hgb 12.1 Hct 36.6 L MCV 85.7 MCH 28.3 MCHC 33.1 RDW 13.2 Plt Count 298 MPV 8.7 L Immature Gran % (Auto) 0.4 Neut % (Auto) 88.9 H Lymph % (Auto) 5.7 L [place] % (Auto) 4.9 Eos % (Auto) 0.0 Baso % (Auto) 0.1 Lymph # (Auto) 0.7 L [place] # (Auto) 0.6 Eos # (Auto) 0.0 Baso # (Auto) 0.0 Abs Immat Gran (auto) 0.05 H Absolute Neuts (auto) 11.3 H Absolute Nucleated RBC 0.000 Nucleated RBC % (auto) 0.0 PT INR aPTT Heparin Protocol O2 Saturation ABG pH at Pt Temp ABG pCO2 at Pt Temp ABG pO2 at Pt Temp ABG HCO3 ABG Base Excess (Actual) VBG pH VBG pCO2 VBG pO2 VBG HCO3 VBG O2 Saturation VBG Base Excess Sodium 140 Potassium 3.0 L Chloride 106 Carbon Dioxide 25 Anion Gap 12 BUN 16 Creatinine 0.71 Estim Creat Clear Calc 77.3 Estimated GFR > 60 POC Glucose 128 H Random Glucose 130 H Lactic Acid Lactic Acid F/U @ 2Hr Calcium 8.1 L Phosphorus Magnesium Total Bilirubin 0.6 Direct Bilirubin 0.3 AST 399 H ALT 430 H Alkaline Phosphatase 75 D Troponin I High Sens C-Reactive Protein 2.64 H B-Natriuretic Peptide Total Protein 6.2 L Albumin 3.9 Triglycerides 51 Cholesterol 170 LDL Cholesterol, Calc 91 HDL Cholesterol 69 Procalcitonin Prolactin Urine Color Urine Appearance Urine pH Ur Specific [place] Urine Protein Urine Glucose (UA) Urine Ketones Urine Blood Urine Nitrite Ur Leukocyte Esterase Urine RBC Urine WBC Ur Squamous Epith Cells Amorphous Sediment Urine Bacteria Granular Casts Urine Mucus Gastric Occult Blood Urine Opiates Screen Urine [place] Screen Acetaminophen Ur Barbiturates Screen Ur Phencyclidine Scrn Ur Amphetamines Screen U Benzodiazepines Scrn Urine Cocaine Screen U Marijuana (THC) Screen Ethyl Alcohol Hep Bs Antigen Hep Bs Antibody Hep B Core Total Ab Hepatitis C Ab (EIA) 11/19/21 11/19/21 11/19/21 04:56 04:56 05:00 WBC RBC Hgb Hct MCV MCH MCHC RDW Plt Count MPV Immature Gran % (Auto) Neut % (Auto) Lymph % (Auto) [place] % (Auto) Eos % (Auto) Baso % (Auto) Lymph # (Auto) [place] # (Auto) Eos # (Auto) Baso # (Auto) Abs Immat Gran (auto) Absolute Neuts (auto) Absolute Nucleated RBC Nucleated RBC % (auto) PT INR aPTT Heparin Protocol O2 Saturation ABG pH at Pt Temp ABG pCO2 at Pt Temp ABG pO2 at Pt Temp ABG HCO3 ABG Base Excess (Actual) VBG pH 7.47 H VBG pCO2 33 VBG pO2 48 VBG HCO3 24 VBG O2 Saturation 82.0 VBG Base Excess 1.3 Sodium Potassium Chloride Carbon Dioxide Anion Gap BUN Creatinine Estim Creat Clear Calc Estimated GFR POC Glucose Random Glucose Lactic Acid Lactic Acid F/U @ 2Hr Calcium Phosphorus Magnesium Total Bilirubin Direct Bilirubin AST ALT Alkaline Phosphatase Troponin I High Sens 1130.8 H* C-Reactive Protein B-Natriuretic Peptide Total Protein Albumin Triglycerides Cholesterol LDL Cholesterol, Calc HDL Cholesterol Procalcitonin Prolactin Urine Color Urine Appearance Urine pH Ur Specific [place] Urine Protein Urine Glucose (UA) Urine Ketones Urine Blood Urine Nitrite Ur Leukocyte Esterase Urine RBC Urine WBC Ur Squamous Epith Cells Amorphous Sediment Urine Bacteria Granular Casts Urine Mucus Gastric Occult Blood Urine Opiates Screen Urine [place] Screen Acetaminophen Ur Barbiturates Screen Ur Phencyclidine Scrn Ur Amphetamines Screen U Benzodiazepines Scrn Urine Cocaine Screen U Marijuana (THC) Screen Ethyl Alcohol Hep Bs Antigen Negative Hep Bs Antibody REACTIVE Hep B Core Total Ab Nonreactive Hepatitis C Ab (EIA) Nonreactive 11/19/21 06:48 WBC RBC Hgb Hct MCV MCH MCHC RDW Plt Count MPV Immature Gran % (Auto) Neut % (Auto) Lymph % (Auto) [place] % (Auto) Eos % (Auto) Baso % (Auto) Lymph # (Auto) [place] # (Auto) Eos # (Auto) Baso # (Auto) Abs Immat Gran (auto) Absolute Neuts (auto) Absolute Nucleated RBC Nucleated RBC % (auto) PT INR aPTT Heparin Protocol 82.0 H D O2 Saturation ABG pH at Pt Temp ABG pCO2 at Pt Temp ABG pO2 at Pt Temp ABG HCO3 ABG Base Excess (Actual) VBG pH VBG pCO2 VBG pO2 VBG HCO3 VBG O2 Saturation VBG Base Excess Sodium Potassium Chloride Carbon Dioxide Anion Gap BUN Creatinine Estim Creat Clear Calc Estimated GFR POC Glucose Random Glucose Lactic Acid Lactic Acid F/U @ 2Hr Calcium Phosphorus Magnesium Total Bilirubin Direct Bilirubin AST ALT Alkaline Phosphatase Troponin I High Sens C-Reactive Protein B-Natriuretic Peptide Total Protein Albumin Triglycerides Cholesterol LDL Cholesterol, Calc HDL Cholesterol Procalcitonin Prolactin Urine Color Urine Appearance Urine pH Ur Specific [place] Urine Protein Urine Glucose (UA) Urine Ketones Urine Blood Urine Nitrite Ur Leukocyte Esterase Urine RBC Urine WBC Ur Squamous Epith Cells Amorphous Sediment Urine Bacteria Granular Casts Urine Mucus Gastric Occult Blood Urine Opiates Screen Urine [place] Screen Acetaminophen Ur Barbiturates Screen Ur Phencyclidine Scrn Ur Amphetamines Screen U Benzodiazepines Scrn Urine Cocaine Screen U Marijuana (THC) Screen Ethyl Alcohol Hep Bs Antigen Hep Bs Antibody Hep B Core Total Ab Hepatitis C Ab (EIA) Quality Stroke Does the patient have a stroke diagnosis?: No VTE Prior VTE?: No VTE Risk Level:: Medical - moderate - high VTE Device Contraindication: N/A - Device Ordered VTE Drug Contraindication: N/A - Med Ordered Critical Care Time Critical Care Time (minutes): 120
--- NOTE | 2021-11-19 10:00 | MHC.CM.PN ---
Pt is intubated after cardiac arrest with initiation of CPR/AED x 3. Discussed pt at ICU rounds: pt will have an EEG today: if normal, she will transfer to [facility] for cardiac interventions. Pt's spouse in to visit and in conference with MD. ENGLISH to contact him for assistance with CM assessment should pt not transfer to [facility].
--- NOTE | 2021-11-19 10:39 | PC.NURSE ---
1029-pt had 32 beat run of vtach. SBP stable during this time. pt's rhythm converted spontaneously back to ST at 101. Dr. Araujo at bedside and defib pads applie to pt. Dr. Araujo notified tractor driver.
[2021-11-19] MEDS: Magnesium Sulfate/D5W 1 GM/100 ML PIGGYBACK IV (11:25)
[2021-11-19] MEDS: Potassium Chloride/H20 40 MEQ/100 ML PIGGYBACK 50 MEQ IV ×2 (11:36→17:33)
[2021-11-19] MEDS: Amiodarone HCL 900 MG in 0.9 % Sodium Chloride 500 ML 34.53 MG IVCONT (11:41)
--- NOTE | 2021-11-19 12:05 | PM.EVENT ---
Event Note Date of Service: 11/19/21 Event Note: I was informed the patient run of ventricular tachycardia self-terminated. Aggressively replace potassium. Start on IV amiodarone and monitor EKGs. Neuro consult as soon as possible to evaluate for feasibility of further invasive cardiac workup.
[2021-11-19] MEDS: amLODIPine Besylate 5 MG TABLET PO (12:28)
[2021-11-19] MEDS: Acetaminophen Oral Liquid 650 MG/20.3 ML SOLUTION PO (12:28)
--- NOTE | 2021-11-19 14:22 | P.CNNE_ITS ---
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 Initially she was thought to be breathing and her pulse was felt. When the associate professor of automation arrived she apparently was in cardiac arrest and there may have been a down time of 5 min. She was resuscitated and admitted to the ICU [address] and was i nitially on propofol which was discontinued about 3 hours earlier. She has had no sedatives. She remains unresponsive but is having some rolling eye movements and is breathing above the vent. I was asked to evaluate her regarding hypoxic encephalopathy. She had an EEG about an hour earlier which shows severe diffuse low voltage 2 Hz delta slowing but no burst suppression patterns and no seizure activity. Review of Systems Review of Systems: Yes unobtainable due to endotracheal tube and Unobtainable due to mental condition Neurologic: Denies Sensory deficit (Neuro) [facility] Social History Social History Currently Displaying Signs/Symptoms of Drug Intoxication Withdrawal: No Advance Directives: No Advance Directives Information Provided: No Meds Allergies Allergy/AdvReac Type Severity Reaction Status Date / Time Unable to Assess Allergy Unverified 11/18/21 16:58 Active Medications: Current Medications Acetaminophen (Acetaminophen Oral Liquid 650 Mg/20.3 Ml Solution) 650 mg PO Q6H PRN PRN Reason: temp > 99 Last Admin: 11/19/21 12:28 Dose: 650 mg Aspirin (Aspirin 81 Mg Tab.Chew) 324 mg PO DAILY [facility] Last Admin: 11/19/21 09:57 Dose: 324 mg Atorvastatin Calcium (Atorvastatin Calcium 80 Mg Tablet) 80 mg PO BEDTIME [facility] Last Admin: 11/19/21 00:58 Dose: 80 mg Heparin Sodium (Porcine) (Heparin Sodium,Porcine 5,000 Unit/Ml Vial) 5,000 unit 80 unit/kg (5000 unit) IVPUSH PROTOCOL BOLUS PRN; Protocol PRN Reason: 80 unit/kg - Heparin Protocol Heparin Sodium (Porcine) (Heparin Sodium,Porcine 5,000 Unit/Ml Vial) 2,500 unit 40 unit/kg (2500 unit) IVPUSH PROTOCOL BOLUS PRN PRN Reason: 40 unit/kg - Heparin Protocol Propofol (Diprivan) 1,000 mg in 100 mls @ 0 mls/hr IVCONT .Q0M [facility]; Protocol Last Titration: 11/19/21 09:45 Dose: 0 mcg/kg/min, 0 mls/hr Lactated Ringer's (Lr) 1,000 mls @ 150 mls/hr IVCONT .Q6H40M [facility] Last Admin: 11/19/21 12:11 Dose: Not Given Heparin Sodium/Sodium Chloride () 25,000 unit in 250 mls @ 0 mls/hr IVCONT .Q0M [facility]; Protocol Last Titration: 11/19/21 07:55 Dose: 12 units/kg/hr, 7.44 mls/hr Amiodarone HCl 900 mg/ Sodium (Chloride) 518 mls @ 34.533 mls/hr IVCONT .Q15H1M [facility]; Protocol Last Admin: 11/19/21 11:41 Dose: 1 mg/min, 34.53 mls/hr Metoprolol Tartrate (Metoprolol Tartrate 25 Mg Tablet) 25 mg PO TID [facility]; Protocol Last Admin: 11/19/21 09:56 Dose: 25 mg Nitroglycerin (Nitroglycerin 2 % Oint 1 Gm Packet) 2 inch TRANSDERMA RQ6H [facility] Pantoprazole Sodium (Pantoprazole Sodium 40 Mg/10 Ml Vial) 40 mg IVPUSH CARMEN LY@0630 [facility] Last Admin: 11/19/21 06:08 Dose: 40 mg Home Medications Medication Instructions Recorded Confirmed Last Taken Type amlodipine 5 mg tablet 1.5 tab PO DAILY 11/18/21 11/18/21 Unknown History atorvastatin 10 mg tablet 1 tab PO DAILY 11/18/21 11/18/21 Unknown History buprenorphine 2 mg-naloxone 0.5 mg 1 strip sublingual DAILY 11/18/21 Unknown History sublingual film docusate sodium 100 mg capsule 1 cap PO DAILY 11/18/21 11/18/21 Unknown History lisinopril 40 mg tablet 1 tab PO DAILY 11/18/21 11/18/21 Unknown History sennosides 8.6 mg tablet (senna) 1 tab PO DAILY 11/18/21 11/18/21 Unknown History Physical Exam Vital Signs: Vital Signs: Last Vital Signs Temp 99.9 F 11/19/21 13:00 Pulse 105 H 11/19/21 14:00 Resp 26 H 11/19/21 14:00 BP 160/107 H 11/19/21 14:00 Pulse Ox 93 11/19/21 14:00 O2 Del Method 11/19/21 14:00 FiO2 40 11/19/21 14:00 BMI result Body Mass Index 26.6 Const: Other: CPR in progress General: healthy appearing, well developed and other (Sedated and intubated) Nutritional Appearance: average body habitus and well nourished Limitations: no limitations HEENT: Head: Yes normal to inspection and Yes normocephalic Ears: external ears normal General nose exam: Normal external nose present Mouth: Normal oral and palatal mucosa present and oropharynx normal Throat: Yes posterior oropharynx normal Eyes: General: appearance normal, both eyes and all related structures Neck: Other: supple Neck: Yes normal visual inspection, Yes trachea midline, Yes supple and Yes no JVD Chest: Chest palpation & inspection: normal inspection of the chest Resp: Effort & Inspection: other (Limited exam but clear to auscultation) Auscultation: clear to auscultation bilaterally Cardio: Jugular venous distension: no JVD Palpation: normal PMI Rate: regular rate Rhythm: regular rhythm Heart sounds: S1 normal heart sound present, S2 normal heart sound present, no click, no gallops, no murmurs and no rubs GI: Inspection: Yes normal to inspection Palpation (GI): Soft to palpation, nontender and No hepatosplenomegaly present Auscultation: normal bowel sounds : General: Yes no CVA tenderness Back/Spine/Pelvis: Back: no CVA tenderness Skin: General skin exam: no rashes or lesions noted Neuro: Other: The patient is unresponsive on a ventilator not sedated. She has roving eye movements [id number] constantly and present corneal reflexes. Pupils are 4 mm and reactive to light. There is no response to verbal stimulation or deep pain including supra-orbital pressure or nailbed pressure. Reflexes are hypoactive. Tone in the lower extremities is increased. There is no response to plantar stimulation. General: other (Unable to assess) Cranial nerves: Yes CN's II- XII intact bilaterally Motor exam (neuro): 5/5 motor strength present throughout Sensory Exam: No Sensory deficit (Neuro) Extrem: General: Yes normal to inspection and Yes no clubbing, cyanosis or edema Psych: Appearance: grossly normal Results Labs CBC & Chem 7: 11/19/21 04:56 11/19/21 04:56 Labs: Short CBC 11/18/21 11/19/21 Range/Units 17:19 04:56 WBC 12.8 H 12.8 H (4.8-10.8) X10*3/uL Hgb 12.9 12.1 (12.0-16.0) g/dl Hct 41.4 36.6 L (37.0-47.0) % Plt Count 361 298 (160-400) X10*3/uL BMP 11/18/21 11/19/21 17:19 04:56 Sodium 139 140 Potassium 3.7 3.0 L Chloride 106 106 Carbon Dioxide 17 L 25 BUN 17 H 16 Creatinine 1.33 0.71 Calcium 8.6 8.1 L Liver Function 11/18/21 11/19/21 Range/Units 17:19 04:56 Total Bilirubin 0.3 0.6 (0.0-1.0) mg/dL Direct Bilirubin 0.3 (0.0-0.5) mg/dL AST 512 H 399 H (5-31) U/L ALT 570 H 430 H (0-31) U/L Alkaline Phosphatase 106 75 D (39-117) U/L Albumin 4.1 3.9 (3.5-5.0) g/dL Urine 11/18/21 Range/Units 19:23 Urine Color STRAW Urine Appearance HAZY Urine pH 7.5 (5.0-8.0) Ur Specific [place] 1.020 (1.005-1.025) Urine Protein 2+ H (NEG-TRACE) MG/DL Urine Glucose (UA) 100 H (NEG) MG/DL Assessment and Plan (1) Hypoxic encephalopathy: Status: Acute On clinical examination 21 hours after the event she appears to have significant hypoxic encephalopathy with cortical involvement but intact brain stem function. She has no response to deep pain and no posturing. Her EEG showed diffuse severe delta slowing. [place] of these findings are suggestive of significant insults to the brain however because it is still early a final prognostication cannot be made. [place] continue full supportive measures for 72 hours and if at that point there is no improvement clinically a followup EEG and a CT scan of the brain to see if there are changes suggesting loss of shaw-white differences and other indications to suggest irreversibity of her cerebral hypoxic insult (2) Cardiac arrest: Status: Acute Patient with cardiac arrest with unclear down time with return of spontaneous circulation with CPR and epinephrine after 3 shocks. Patient noted to have e levated troponin which are most likely suggestive of acute coronary syndrome with echocardiographic finding consistent with depressed LV systolic function and regional wall motion artery which may suggest underlying coronary artery disease. Procedures Date of Service Date of Service: 11/19/21
[2021-11-19] MEDS: Nitroglycerin 2 % Oint 1 GM Packet 2 INCH TRANSDERMA (14:42)
[2021-11-19 14:55] LABS: PTT Heparin Drip 73.1 SEC (53-77.9)
[2021-11-19 15:37] LABS: Magnesium 2.2 mg/dL (1.6-2.6); Potassium 3.6 mmol/L (3.3-5.1)
[2021-11-19] MEDS: Lactated Ringers 1,000 ML 50 ML IVCONT (15:58)
[2021-11-19] MEDS: Valsartan 40 MG TABLET PO (16:12)
[2021-11-19 19:05] LABS: PTT Heparin Drip 70.7 SEC (53-77.9)
[2021-11-19] MEDS: fentaNYL citrate/PF 100 MCG/2 ML VIAL 25 MCG IVPUSH ×2 (20:03→22:14)
[2021-11-20] VITALS (32 sets, daily range): BP systolic 102–152; BP diastolic 56–91; PULSE 84–115; RESP 14–47; TEMP 34–38.2; O2SAT 90–98; BMI 25.0
[2021-11-20] MEDS: Nitroglycerin 2 % Oint 1 GM Packet 2 INCH TRANSDERMA ×2 (00:31→05:31)
[2021-11-20] MEDS: fentaNYL citrate/PF 100 MCG/2 ML VIAL 25 MCG IVPUSH ×4 (00:38→22:04)
[2021-11-20] MEDS: Heparin Sodium,Porcine/1/2NS 25,000 UNIT/250 ML IV.SOLN 7.44 UNIT IVCONT (00:39)
[2021-11-20 03:55] LABS: Hepatitis A Antibody IgM 0.15 Index (0-0.79); ~Hepatitis A Antibody IgM Nonreactive (Nonreactive)
[2021-11-20] MEDS: Valsartan 40 MG TABLET PO ×2 (04:07→15:09)
[2021-11-20 05:31] LABS: Venous Blood Gas Refer to POC result
[2021-11-20 05:34] LABS: VBG Base Excess -2.9 mmol/L; VBG HCO3 19 mmol/L (22-26); VBG pCO2 29 mmHg; VBG pH 7.43 (7.32-7.43); VBG pO2 42 mmHg
[2021-11-20 05:46] LABS: MANUAL DIFF FLAG NO
[2021-11-20 05:50] LABS: Basophils Percent Auto 0.1 % (0-2); Hematocrit 38.5 % (37.0-47.0); Hemoglobin 12.8 g/dl (12.0-16.0); Imm Gran Pct Auto 0.6 % (0.0-0.4); Lymphocytes Absolute Auto 1.3 X10*3/uL (1.2-4.9); Lymphocytes Percent Auto 8.1 % (20-40); Mean Corpuscular HGB Conc 33.2 g/dl (31.0-35.0); Mean Corpuscular Hemoglobin 28.4 pg (27.0-33.0); Mean Corpuscular Volume 85.4 fL (80.0-98.0); Mean Platelet Volume 9.2 fL (9.4-12.3); Monocytes Absolute Auto 0.7 X10*3/uL (0.1-1.2); Monocytes Percent Auto 4.1 % (2-11); Neutrophils Absolute Auto 14.1 x10*3/uL (2.0-8.3); Neutrophils Percent Auto 87.1 % (45-73); Platelet Count 346 X10*3/uL (160-400); Red Blood Count 4.51 X10*6/uL (4.20-5.50); Red Cell Distribution Width 13.2 % (11.0-16.0); White Blood Count 16.2 X10*3/uL (4.8-10.8)
[2021-11-20 06:11] LABS: Alanine Aminotransferase 263 U/L (0-31); Albumin Level 3.9 g/dL (3.5-5.0); Alkaline Phosphatase 72 U/L (39-117); Anion Gap 17 (12-20); Aspartate Amino Transferase 123 U/L (5-31); Bilirubin Total 1.3 mg/dL (0.0-1.0); Blood Urea Nitrogen 17 mg/dL (9-16); Calcium 8.7 mg/dL (8.4-10.2); Carbon Dioxide 20 mmol/L (22-29); Chloride 102 mmol/L (96-108); Creatinine Clr Calc Pharmacy 92.8; Estimated Glomerular Filt Rate > 60; Glucose Random 137 mg/dL (60-115); Potassium 3.8 mmol/L (3.3-5.1); Sodium 135 mmol/L (135-145); Total Protein 6.6 g/dL (6.5-8.0)
[2021-11-20] MEDS: Aspirin 81 MG TAB.CHEW 324 MG PO (08:39)
[2021-11-20] MEDS: Metoprolol Tartrate 25 MG TABLET PO ×4 (08:39→23:38)
--- NOTE | 2021-11-20 08:44 | PC.NURSE ---
PER LIGIA BRADLEY RN: ASSUMED CARE OF PT AT 1900. PT MAINTAINED ON AC VENT SETTINGS. BREATHING OVER SET RATE OF 12. RESP RATE WILL GO UP TO 40'S AND THEN COME DOWN TO 18 IN A MATTER OF SECONDS. PT RECEIVED FENTANYL 25 MG PRN FOR VENT CONTROL WITH SOME EFFECT. NO OTHER SEDATION GIVEN. RHYTHM HAS BEEN STABLE...SR-ST, RATE 90'S-108, NO ECTOPY NOTED. BP STABLE. AMIODARONE GTT PER PROTOCOL. HEPARIN GTT PER PROTOCOL. U/O 30-75 ML/HR. PT UNRESPONSIVE TO VERBAL OR PAINFUL STIMULI. ROLLING EYE MOVEMENTS NOTED. PUPILS REACTIVE TO LIGHT. TUBE FEEDS ON HOLD DUE TO ILEUS.
[2021-11-20 09:43] LABS: Magnesium 1.9 mg/dL (1.6-2.6); Phosphorus 2.7 mg/dL (2.7-4.5)
[2021-11-20] MEDS: Potassium Chloride Packet 20 MEQ PACKET 40 MEQ G-TUBE (09:59)
--- NOTE | 2021-11-20 10:33 | MHC.CLN ---
F/U PATIENT WITH ILEUS AND TUBE FEED ON HOLD AT TIME OF ROUNDS 11/20. PER MD, RESUME TUBE FEED AT 20 ML PER HOUR X 24 HOURS AND REASSESS. NO LONGER RECEIVING PROPOFOL. RD RECOMMENDS PROMOTE FORMULA. AT 20 ML PER HOUR, PROVIDES 480 KCALS, 30 G PROTEIN, 403 ML FREE WATER. FOLLOW FOR TUBE FEED TOLERANCE/ADVANCEMENT, RESIDUALS, AND LYTES.
[2021-11-20] MEDS: Amiodarone HCL 900 MG in 0.9 % Sodium Chloride 500 ML 17.27 MG IVCONT (11:08)
[2021-11-20] MEDS: Lactated Ringers 1,000 ML 50 ML IVCONT (11:10)
--- NOTE | 2021-11-20 11:43 | P.PNCC_ITS ---
Subjective Subjective Date of Service: 11/20/21 Interval History: Mrs. Francis was admitted to ICU November 18 after resusc from [id number] cardiac arrest. The patient is a 55-year-old female w PMHx of prescription drug abuse for about 3 years, on methadone since June; hypertension; hyperlipidemia; and current every day smoker.? 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 On November 18, the patient was in her usual state of health, at work in the dental office.? In the early afternoon she complained of a headache.? Sometime later, she was found slumped over, perhaps seizing.? EMS was called.? A BLS crew responded.? The timeline from the EMS crew records is that the patient was unresponsive, with no bystander CPR, for 5 minutes prior to the EMS arrival.? On arrival of the ambulance crew, the patient was apneic and pulseless.? CPR was begun, w bag valve mask ventilation.? An AED delivered 1 shock.? A 2nd shock was delivered two minutes later.? A 3rd shock was administered enroute to the hospital.? Narcan 2 mg intranasal was administered enroute to the hospital.? The crew offloaded the patient w CPR ongoing and brought the patient into the ED w CPR ongoing. In the ED, CPR was continued.? An IO device was placed, the patient was given 2 rounds of epinephrine, and ROSC was obtained after approximately 5 minutes of CPR in the ED.? The patient was intubated and a CVL was placed. ?(Summary of approximate time course:? 5 minutes of cardiac arrest prior to beginning CPR;? 20 minutes duration of CPR until ROSC.)? After ROSC, she was hemod stable, needing no pressors.? FiO2 was weaned rapidly. ED workup was notable for a white count 12.8, Hgb 12.9.? Sodium 139, potassium 3.7, bicarb 17, anion gap 20, BUN/creat 17/1.3, random glucose 209, Transaminases moderately elevated, lactic acid 5.3, troponin 43, BNP 140, ABG (reportedly on 50% FiO2) showed 7.3/29/294/14.? Urine negative with a blood alcohol level less than 10.? CXR and head CT negative.? Abdominal CT was unrevealing. Initial EKG in the ED showed sinus tach 124bpm, loss of R-waves V1 and V2, maybe 1/[address] depression in V3-6. The patient was admitted to the ICU.? Bedside echo showed global LV dysfxn with ? RWMAs.? IVC 2.2 cm w good insp collapse.? She appeared to have some tonic clonic activity, which resolved with Ativan.? She was therefore put on a propofol infusion and had no further seizure/myoclonus.? First repeat troponin was 1143, and a 2nd repeat troponin was 1819.? She was put on a heparin drip, along with ASA, statin, and beta shante.? TTM was attained using a cooling blanket to maintain her temp < 98.6?. Since that first night, she?s had a stable course, except for an 39-beat run of VT yesterday while her potassium and magnesium were low.? She was put on an amiodarone drip yesterday, and that has not recurred.? She has been on and off pressure support ventilation with no problem, and her FiO2 has been tapered to 25%.? She has had good brainstem reflexes, but remains deeply comatose with no evidence of cortical function.? EEG yesterday showed severe diffuse background slowing consistent with severe diffuse encephalopathy.? No seizure activity was noted. The patient has been off propofol > 24 hours.? Neurologic exam this morning is unchanged.? She remains 100% non interactive.? No eye opening.? No response to painful stimulus.? I?ve seen some slight spont movement of her jaw.? Positive corneals, positive doll's eyes.? Babinski is flat on the left, withdrawal on the right.? PERRL, about 4mm.? I?ve seen no posturing.? No sz activity or myoclonus since we turned the propofol off.? HR is 100 on metoprolol 25 mg bid.? SR.? BP 120/54 on NTP and valsartan.? On AC 12/350/25%/+5, RR is 20, Ve 7L, PIP 18cm, ETCO2 25mm, Sat 92%.? This morning's CVBG shows 7.43/29/-2.? Afebrile.? Tmax 100.0? at 5am yest.? No JVD at 30?.? Chest is CTA.? Heart rate and rhythm are regular, with normal-sounding S1 and S2, with no murmur or gallops.? The abdomen is benign.? She has no peripheral edema. LABORATORY DATA:? As below. ECHOCARDIOGRAM yesterday:? Normal wall thickness.? At least moderate global LV dysfunction with regional wall motion abnormalities.? Septum looks akinetic.? LV EF approximately 30%.? RV size and function looks normal.? No significant valvular abnormalities by Doppler.? PA pressure is normal.? IVC measured 1.36 cm with at least 30% inspiratory collapse. IMPRESSION: 1. Underlying history of opiate abuse, on methadone 2. Status post OOHCA.? 5 minute down time with no CPR; 20+ minutes CPR prior to ROSC. 3. Precipitating etiology likely ACS/acute FL.? (The methadone causing torsades is also in the back of my mind, but that wouldn?t account for her echo findings and trop elevations.)? We have her now on heparin gtt, ASA, statin, beta shante.? Currently hemod stable. 4. ? post event seizures.? No further seizures.? EEG yest showed no sz activity. 5. Coma.? 2? anoxic encephalopathy.? Severe EEG slowing.? Plan repeat EEG at 72 hrs. 6. Acute respiratory failure.? 2? above 7. Transaminitis likely 2? shock liver.? Improving. 8. Reactive leukocytosis. 9. Incidental Liver Hemangioma I spoke with the patient?s and [id number] this morning and updated them on her current condition and proposed management. Critical Care Time (minutes): 60 Physical Exam Vital Signs: Vital Signs: Last Vital Signs Temp 98.2 F 11/20/21 11:00 Pulse 94 11/20/21 11:00 Resp 19 11/20/21 11:00 BP 109/72 11/20/21 11:00 Pulse Ox 92 11/20/21 11:00 O2 Del Method 11/20/21 11:00 FiO2 25 11/20/21 11:00 BMI result Body Mass Index 25.0 Objective Data Labs CBC & Chem 7: 11/20/21 05:22 11/20/21 05:22 Labs: Laboratory Results - last 24 hr 11/19/21 11/19/21 11/19/21 04:56 14:30 14:30 WBC RBC Hgb Hct MCV MCH MCHC RDW Plt Count MPV Immature Gran % (Auto) Neut % (Auto) Lymph % (Auto) [place] % (Auto) Eos % (Auto) Baso % (Auto) Lymph # (Auto) [place] # (Auto) Eos # (Auto) Baso # (Auto) Abs Immat Gran (auto) Absolute Neuts (auto) Absolute Nucleated RBC Nucleated RBC % (auto) aPTT Heparin Protocol 73.1 VBG pH VBG pCO2 VBG pO2 VBG HCO3 VBG O2 Saturation VBG Base Excess Sodium Potassium 3.6 Chloride Carbon Dioxide Anion Gap BUN Creatinine Estim Creat Clear Calc Estimated GFR Random Glucose Calcium Phosphorus Magnesium 2.2 Total Bilirubin AST ALT Alkaline Phosphatase Total Protein Albumin Hepatitis A IgM Ab Nonreactive 11/19/21 11/20/21 11/20/21 18:39 05:22 05:22 WBC 16.2 H RBC 4.51 Hgb 12.8 Hct 38.5 MCV 85.4 MCH 28.4 MCHC 33.2 RDW 13.2 Plt Count 346 MPV 9.2 L Immature Gran % (Auto) 0.6 H Neut % (Auto) 87.1 H Lymph % (Auto) 8.1 L [place] % (Auto) 4.1 Eos % (Auto) 0.0 Baso % (Auto) 0.1 Lymph # (Auto) 1.3 [place] # (Auto) 0.7 Eos # (Auto) 0.0 Baso # (Auto) 0.0 Abs Immat Gran (auto) 0.10 H Absolute Neuts (auto) 14.1 H Absolute Nucleated RBC 0.000 Nucleated RBC % (auto) 0.0 aPTT Heparin Protocol 70.7 VBG pH VBG pCO2 VBG pO2 VBG HCO3 VBG O2 Saturation VBG Base Excess Sodium 135 Potassium 3.8 Chloride 102 Carbon Dioxide 20 L Anion Gap 17 BUN 17 H Creatinine 0.64 Estim Creat Clear Calc 92.8 Estimated GFR > 60 Random Glucose 137 H Calcium 8.7 D Phosphorus 2.7 Magnesium 1.9 Total Bilirubin 1.3 H AST 123 H ALT 263 H Alkaline Phosphatase 72 Total Protein 6.6 Albumin 3.9 Hepatitis A IgM Ab 11/20/21 11/20/21 05:22 05:24 WBC RBC Hgb Hct MCV MCH MCHC RDW Plt Count MPV Immature Gran % (Auto) Neut % (Auto) Lymph % (Auto) [place] % (Auto) Eos % (Auto) Baso % (Auto) Lymph # (Auto) [place] # (Auto) Eos # (Auto) Baso # (Auto) Abs Immat Gran (auto) Absolute Neuts (auto) Absolute Nucleated RBC Nucleated RBC % (auto) aPTT Heparin Protocol 61.0 VBG pH 7.43 VBG pCO2 29 VBG pO2 42 VBG HCO3 19 L VBG O2 Saturation 66.0 VBG Base Excess -2.9 Sodium Potassium Chloride Carbon Dioxide Anion Gap BUN Creatinine Estim Creat Clear Calc Estimated GFR Random Glucose Calcium Phosphorus Magnesium Total Bilirubin AST ALT Alkaline Phosphatase Total Protein Albumin Hepatitis A IgM Ab Microbiology Microbiology Results: Microbiology 11/19/21 07:02 Blood - Central Line Blood Culture - Preliminary No growth after 24 hours. 11/19/21 06:52 Blood - Central Line Blood Culture - Preliminary No growth after 24 hours. 11/18/21 17:19 Blood - Venous Blood Culture - Preliminary No growth after 24 hours. 11/18/21 17:20 Blood - Venous Blood Culture - Preliminary No growth after 24 hours. Quality Stroke Does the patient have a stroke diagnosis?: No VTE Prior VTE?: No VTE Risk Level:: Medical - moderate - high VTE Device Contraindication: N/A - Device Ordered VTE Drug Contraindication: N/A - Med Ordered Critical Care Time Critical Care Time (minutes): 60
[2021-11-20] MEDS: Magnesium Sulfate/D5W 1 GM/100 ML PIGGYBACK IV (12:11)
--- NOTE | 2021-11-20 13:13 | P.PNCA_ITS ---
Subjective Subjective Date of Service: 11/20/21 Principal diagnosis: Status post cardiac arrest, NSTEMI Interval history: Patient remains intubated. EKG yesterday suggested anoxic encephalopathy. Review of Systems Review of Systems Yes Unobtainable due to mental status Physical Exam Vital Signs: Last Vital Signs Temp 100.6 F H 11/20/21 13:00 Pulse 106 H 11/20/21 13:00 Resp 20 11/20/21 13:00 BP 115/66 11/20/21 13:00 Pulse Ox 90 L 11/20/21 13:00 O2 Del Method 11/20/21 13:00 FiO2 25 11/20/21 13:00 BMI result Body Mass Index 25.0 Const General: well developed and other (Sedated and intubated) Nutritional Appearance: well nourished HEENT Head: Yes normocephalic Neck Neck: Yes trachea midline, Yes supple and Yes no JVD Chest Chest palpation & inspection: normal inspection of the chest Resp Effort & Inspection: other (Limited exam but clear to auscultation) Cardio Jugular venous distension: no JVD Palpation: normal PMI Rate: regular rate Rhythm: regular rhythm Heart sounds: S1 normal heart sound present, S2 normal heart sound present, no click, no gallops, no murmurs and no rubs GI Palpation (GI): Soft to palpation Auscultation: normal bowel sounds Skin General skin exam: no rashes or lesions noted Neuro General: other (Unable to assess) Extrem General: Yes no clubbing, cyanosis or edema Objective Labs and Meds Result diagrams: 11/20/21 05:22 11/20/21 05:22 Lab results: Laboratory Results - last 24 hr 11/19/21 11/19/21 11/19/21 04:56 14:30 14:30 WBC RBC Hgb Hct MCV MCH MCHC RDW Plt Count MPV Immature Gran % (Auto) Neut % (Auto) Lymph % (Auto) [place] % (Auto) Eos % (Auto) Baso % (Auto) Lymph # (Auto) [place] # (Auto) Eos # (Auto) Baso # (Auto) Abs Immat Gran (auto) Absolute Neuts (auto) Absolute Nucleated RBC Nucleated RBC % (auto) aPTT Heparin Protocol 73.1 VBG pH VBG pCO2 VBG pO2 VBG HCO3 VBG O2 Saturation VBG Base Excess Sodium Potassium 3.6 Chloride Carbon Dioxide Anion Gap BUN Creatinine Estim Creat Clear Calc Estimated GFR Random Glucose Calcium Phosphorus Magnesium 2.2 Total Bilirubin AST ALT Alkaline Phosphatase Total Protein Albumin Hepatitis A IgM Ab Nonreactive 11/19/21 11/20/21 11/20/21 18:39 05:22 05:22 WBC 16.2 H RBC 4.51 Hgb 12.8 Hct 38.5 MCV 85.4 MCH 28.4 MCHC 33.2 RDW 13.2 Plt Count 346 MPV 9.2 L Immature Gran % (Auto) 0.6 H Neut % (Auto) 87.1 H Lymph % (Auto) 8.1 L [place] % (Auto) 4.1 Eos % (Auto) 0.0 Baso % (Auto) 0.1 Lymph # (Auto) 1.3 [place] # (Auto) 0.7 Eos # (Auto) 0.0 Baso # (Auto) 0.0 Abs Immat Gran (auto) 0.10 H Absolute Neuts (auto) 14.1 H Absolute Nucleated RBC 0.000 Nucleated RBC % (auto) 0.0 aPTT Heparin Protocol 70.7 VBG pH VBG pCO2 VBG pO2 VBG HCO3 VBG O2 Saturation VBG Base Excess Sodium 135 Potassium 3.8 Chloride 102 Carbon Dioxide 20 L Anion Gap 17 BUN 17 H Creatinine 0.64 Estim Creat Clear Calc 92.8 Estimated GFR > 60 Random Glucose 137 H Calcium 8.7 D Phosphorus 2.7 Magnesium 1.9 Total Bilirubin 1.3 H AST 123 H ALT 263 H Alkaline Phosphatase 72 Total Protein 6.6 Albumin 3.9 Hepatitis A IgM Ab 11/20/21 11/20/21 05:22 05:24 WBC RBC Hgb Hct MCV MCH MCHC RDW Plt Count MPV Immature Gran % (Auto) Neut % (Auto) Lymph % (Auto) [place] % (Auto) Eos % (Auto) Baso % (Auto) Lymph # (Auto) [place] # (Auto) Eos # (Auto) Baso # (Auto) Abs Immat Gran (auto) Absolute Neuts (auto) Absolute Nucleated RBC Nucleated RBC % (auto) aPTT Heparin Protocol 61.0 VBG pH 7.43 VBG pCO2 29 VBG pO2 42 VBG HCO3 19 L VBG O2 Saturation 66.0 VBG Base Excess -2.9 Sodium Potassium Chloride Carbon Dioxide Anion Gap BUN Creatinine Estim Creat Clear Calc Estimated GFR Random Glucose Calcium Phosphorus Magnesium Total Bilirubin AST ALT Alkaline Phosphatase Total Protein Albumin Hepatitis A IgM Ab Progress Note: A&P Assessment and plan (1) Cardiac arrest: Status: Acute Assessment and Plan: Cardiac arrest most likely due to acute cardiac event with evidence of NSTEMI. LV ejection fraction is depressed consistent with ischemic cardiomyopathy and a component of probably stress-induced cardiomyopathy. Hemodynamically stable. Today had 1 run of nonsustained VT. Currently on IV amiodarone drip which can be switched to p.o. amiodarone 400 mg b.i.d. for 2 weeks followed by 200 mg daily. Also maximize metoprolol to 25 mg q.6 hours for neurohormonal modulation as well as for ventricular arrhythmias and treatment of coronary artery disease. Diovan 40 mg b.i.d. to continue. Currently no signs of congestive heart failure. Continue aspirin statin therapy. Continue IV heparin for total of 72 hours. Currently management will be conservative given her neurologic condition. Follow-up for neurologic condition with EEG in couple of days. If there is any improvement in her neurologic function will consider cardiac catheterization further invasive evaluation. Findings were discussed with patient's family in details and plan from cardiac perspective was discussed as well. Prognosis is guarded. Will continue to follow with you. Time Spent With Patient Time: Total time spent is greater than 50% in coordination of care (as documented) at patient's floor/unit and/or counseling patient: Progress Note: Quality Stroke Does the patient have a stroke diagnosis?: No Procedures Date of Service Date of Service: 11/20/21
[2021-11-20] MEDS: Acetaminophen Oral Liquid 650 MG/20.3 ML SOLUTION PO (15:08)
[2021-11-20] MEDS: Chlorhexidine Gluc Oral Rinse 15 ML MOUTHWASH BUCCAL ×2 (16:57→20:49)
--- NOTE | 2021-11-20 17:54 | PC.NURSE ---
TMAX 100.8 - PRN TYLENOL GIVEN - EFFECTS PENDING. NITRO PASTE HELD PER BEHAVIORAL MEDICAL DIRECTOR. PATIENT THROUGHOUT THE SHIFT NOTED TO OPEN THEIR EYES MORE, BUT REMAINS UNABLE TO TRACK AT THIS TIME. WEAK COUGH AND GAG. DOES NOT FOLLOW COMMANDS OR MOVE EXTREMITIES. PATIENT FAMILY BEDSIDE THROUGHOUT ENTIRE SHIFT. UPDATED BY THIS RN AND MD.
[2021-11-20] MEDS: Amiodarone HCL 200 MG TABLET 400 MG PO (20:48)
[2021-11-20] MEDS: Atorvastatin Calcium 80 MG TABLET PO (20:49)
[2021-11-21] VITALS (34 sets, daily range): BP systolic 130–178; BP diastolic 86–109; PULSE 93–130; RESP 18–46; TEMP 34–38.1; O2SAT 4–99; BMI 23.8
--- NOTE | 2021-11-21 | EEG_ITS ---
This is a 16-channel EEG performed on portable machine in ICU. The patient is reported intubated during the tracing. Background EEG rhythm is about 10 to 12 hertz 5 to 30 microvolt posteriorly, lower amplitude fast anteriorly. No obvious asymmetry, paroxysmal tendency, or focal activity is noted. Photic stimulation and hyperventilation were not performed. Cardiac lead revealed bradycardia. IMPRESSION: No significant abnormality noted on this EEG. MD BRYAN Norris/KENY / [id number]
[2021-11-21] MEDS: Heparin Sodium,Porcine/1/2NS 25,000 UNIT/250 ML IV.SOLN 7.44 UNIT IVCONT (00:41)
[2021-11-21] MEDS: Valsartan 40 MG TABLET PO ×2 (03:27→16:04)
[2021-11-21] MEDS: Lactated Ringers 1,000 ML 50 ML IVCONT (05:25)
[2021-11-21] MEDS: Metoprolol Tartrate 25 MG TABLET PO ×3 (05:25→17:46)
[2021-11-21 05:31] LABS: Hemoglobin 10.3 g/dl (12.0-16.0); Mean Corpuscular HGB Conc 33.2 g/dl (31.0-35.0); Mean Corpuscular Hemoglobin 28.5 pg (27.0-33.0); Mean Corpuscular Volume 85.6 fL (80.0-98.0); Mean Platelet Volume 9.1 fL (9.4-12.3); Platelet Count 254 X10*3/uL (160-400); Red Blood Count 3.62 X10*6/uL (4.20-5.50); Red Cell Distribution Width 13.3 % (11.0-16.0); White Blood Count 13.1 X10*3/uL (4.8-10.8)
[2021-11-21 05:31] LABS: VBG Base Excess 0.8 mmol/L; VBG HCO3 22 mmol/L (22-26); VBG pCO2 26 mmHg; VBG pH 7.53 (7.32-7.43); VBG pO2 98 mmHg
[2021-11-21 05:37] LABS: Venous Blood Gas Refer to POC result
[2021-11-21 05:39] LABS: PTT Heparin Drip 41.5 SEC (53-77.9)
[2021-11-21] MEDS: Heparin Sodium,Porcine 5,000 UNIT/ML VIAL 2500 UNIT IVPUSH (05:47)
[2021-11-21 06:01] LABS: Anion Gap 13 (12-20); Blood Urea Nitrogen 19 mg/dL (9-16); Calcium 8.1 mg/dL (8.4-10.2); Carbon Dioxide 20 mmol/L (22-29); Chloride 104 mmol/L (96-108); Creatinine Clr Calc Pharmacy 91.5; Estimated Glomerular Filt Rate > 60; Glucose Random 132 mg/dL (60-115); Magnesium 1.7 mg/dL (1.6-2.6); Potassium 3.7 mmol/L (3.3-5.1); Sodium 133 mmol/L (135-145)
--- NOTE | 2021-11-21 09:55 | PM.PNCARD ---
Subjective Subjective Date of Service: 11/21/21 Principal diagnosis: Status post cardiac arrest, NSTEMI Interval history: Patient appears to be febrile and noted that a temperature trend is higher over the last 24 hours. Noted concomitantly sinus tachycardia with some PVCs. Blood pressure is elevated today. As per the nursing still has no significant purposeful neurologic response to stimuli. Require slightly higher oxygenation compared to yesterday Review of Systems Review of Systems Yes unobtainable due to endotracheal tube Physical Exam Vital Signs: Last Vital Signs Temp 100.2 F 11/21/21 08:00 Pulse 98 11/21/21 09:00 Resp 23 H 11/21/21 09:00 BP 141/91 H 11/21/21 09:00 Pulse Ox 92 11/21/21 09:00 O2 Del Method 11/21/21 09:00 FiO2 30 11/21/21 09:00 BMI result Body Mass Index 23.8 Const General: other (Intubated) Nutritional Appearance: average body habitus Neck Neck: Yes trachea midline, Yes supple and Yes no JVD Resp Effort & Inspection: normal respiratory effort Auscultation: bronchovesicular breath sounds diffuse Cardio Jugular venous distension: no JVD Rate: tachycardic Rhythm: regular rhythm Heart sounds: S1 normal heart sound present, S2 normal heart sound present, no click, no gallops and no murmurs GI Auscultation: normal bowel sounds Skin General skin exam: no rashes or lesions noted Objective Labs and Meds Result diagrams: 11/21/21 05:21 11/21/21 05:21 Lab results: Laboratory Results - last 24 hr 11/21/21 11/21/21 11/21/21 05:21 05:21 05:21 WBC 13.1 H RBC 3.62 L Hgb 10.3 L Hct 31.0 L MCV 85.6 MCH 28.5 MCHC 33.2 RDW 13.3 Plt Count 254 D MPV 9.1 L Absolute Nucleated RBC 0.000 Nucleated RBC % (auto) 0.0 aPTT Heparin Protocol 41.5 L D VBG pH VBG pCO2 VBG pO2 VBG HCO3 VBG O2 Saturation VBG Base Excess Sodium 133 L Potassium 3.7 Chloride 104 Carbon Dioxide 20 L Anion Gap 13 BUN 19 H Creatinine 0.60 Estim Creat Clear Calc 91.5 Estimated GFR > 60 Random Glucose 132 H Calcium 8.1 L D Phosphorus 2.0 L Magnesium 1.7 11/21/21 05:25 WBC RBC Hgb Hct MCV MCH MCHC RDW Plt Count MPV Absolute Nucleated RBC Nucleated RBC % (auto) aPTT Heparin Protocol VBG pH 7.53 H VBG pCO2 26 VBG pO2 98 VBG HCO3 22 VBG O2 Saturation 98.0 VBG Base Excess 0.8 Sodium Potassium Chloride Carbon Dioxide Anion Gap BUN Creatinine Estim Creat Clear Calc Estimated GFR Random Glucose Calcium Phosphorus Magnesium Progress Note: A&P Assessment and plan (1) Cardiac arrest: Status: Acute Assessment and Plan: Status post cardiac arrest most likely ischemic in nature or related to cardiomyopathy. Requires further workup if neurologic status improves. Currently having sinus tachycardia most likely due to metabolic demand due to febrile episode. Workup for fever especially with increasing oxygen requirement, consider ventilator associated pneumonia. Continue metoprolol therapy as well as amiodarone therapy. Continue to replace electrolytes with magnesium greater than 2 and potassium greater than 4. Continue neurohormonal modulation with Diovan and maximize as tolerated. Continue with supportive care. Overall prognosis guarded. Will continue to follow with you Time Spent With Patient Time: Total time spent is greater than 50% in coordination of care (as documented) at patient's floor/unit and/or counseling patient: Progress Note: Quality Stroke Does the patient have a stroke diagnosis?: No Procedures Date of Service Date of Service: 11/21/21
[2021-11-21] MEDS: Magnesium Sulfate/H2O 2 GM/50 ML PIGGYBACK IV (10:05)
[2021-11-21] MEDS: Amiodarone HCL 200 MG TABLET 400 MG PO ×2 (10:15→21:26)
[2021-11-21] MEDS: Aspirin 81 MG TAB.CHEW 324 MG PO (10:19)
[2021-11-21] MEDS: Chlorhexidine Gluc Oral Rinse 15 ML MOUTHWASH BUCCAL ×3 (10:20→21:25)
[2021-11-21] MEDS: Potassium Chloride Packet 20 MEQ PACKET 40 MEQ PO ×2 (10:20→12:35)
--- NOTE | 2021-11-21 10:33 | MHC.CLN ---
F/U PT REMAINS INTUBATED PT CURRENTLY RECEIVING TF PROMOTE AT MAX GOAL RATE 20ML/HR PROVIDING 480KCALS, 30G PROTEIN, 403ML FREE WATER FROM FORMULA IF ILEUS RESOLVED; RECOMMEND TF PROMOTE AT MAX GOAL RATE 60ML/HR WITH 120ML FREE WATER FLUSHES Q 8 HRS TO PROVIDE KCALS (25KCALS/KG BASED ON CMW), 90G PROTEIN (1.6G/KG), 1568ML TOTAL WATER FROM FORMULA AND FLUSHES (27.5ML/KG) MONITOR TOLERANCE, RESIDUALS AND LYTES
[2021-11-21] MEDS: fentaNYL citrate/PF 100 MCG/2 ML VIAL 25 MCG IVPUSH ×4 (10:38→23:29)
--- NOTE | 2021-11-21 12:08 | MHC.CM.PN ---
Met with pt (intubated) pt's spouse and sister in law. Pt has never completed a HCP per family. Pt has received the [employer] x 3 and is a pt of Dr. Brenda Valderrama. Pt was totally independent with all care needs prior to admission. Family is awaiting 2nd EEG result which will be obtained on 11/22 to assist with care needs/planning. CM to follow.
--- NOTE | 2021-11-21 16:10 | ECG_ITS ---
Test Reason : check rhythm Blood Pressure : / mmHG Vent. Rate : 108 BPM Atrial Rate : 108 BPM P-R Int : 138 ms QRS Dur : 096 ms QT Int : 376 ms P-R-T Axes : 044 003 092 degrees QTc Int : 503 ms Sinus tachycardia Low voltage QRS Septal infarct , age undetermined Abnormal ECG When compared with ECG of 19-NOV-2021 09:29, T wave inversion no longer evident in Anterolateral leads Referred By: Antonio Guillory Electronically Signed By:MAXINE KIMBLE MD
--- NOTE | 2021-11-21 16:44 | PC.NURSE ---
TALAMANTES OUTPUT NOTED TO BE PINK TINGE. MD NOTIFIED AND ORDERED TO STOP HEPARIN GTT. GTT STOPPED AT 1637. HEEL SHAPER NOTIFIED OF FINDINGS AND GTT BEING TURNED OFF. PHARMACY ALSO NOTIFIED. EEG COMPLETED. AWAITING ORDER FOR CT SCAN FROM MD. FAMILY VISITED AND UPDATE THROUGHOUT SHIFT BY AND THIS RN.
[2021-11-21] MEDS: Valsartan 40 MG TABLET G-TUBE (21:00)
--- NOTE | 2021-11-21 21:15 | PM.CCPN ---
Subjective Subjective Date of Service: 11/21/21 Interval History: Mrs. Francis was admitted to ICU November 18 after resusc from [id number] cardiac arrest. The patient is a 55-year-old female w PMHx of prescription drug abuse for about 3 years, on methadone since June; hypertension; hyperlipidemia; and current every day smoker.? 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 On November 18, the patient was in her usual state of health, at work in the dental office.? In the early afternoon she complained of a headache.? Sometime later, she was found slumped over, perhaps seizing.? EMS was called.? A BLS crew responded.? Accord to the EMS crew records, the patient was unresponsive, with no bystander CPR, for 5 minutes prior to the EMS arrival.? On arrival of the ambulance crew, the patient was apneic and pulseless.? CPR was begun, w bag valve mask ventilation.? An AED delivered 1 shock.? A 2nd shock was delivered two minutes later.? A 3rd shock was administered enroute to the hospital.? Narcan 2 mg intranasal was administered enroute to the hospital.? The crew offloaded the patient w CPR ongoing and brought the patient into the ED. In the ED, CPR was continued.? An IO device was placed, the patient was given 2 rounds of epinephrine, and ROSC was obtained after approximately 5 minutes of CPR in the ED.? The patient was intubated and a CVL was placed. ?(Summary of approximate time course:? 5 minutes of cardiac arrest prior to beginning CPR;? 20+ minutes duration of CPR until ROSC.)? After ROSC, she was hemod stable, needing no pressors.? FiO2 was weaned rapidly. ED workup was notable for a white count 12.8, Hgb 12.9.? Bicarb 17, anion gap 20, BUN/creat 17/1.3, random glucose 209, Transaminases moderately elevated, lactic acid 5.3, troponin 43, BNP 140, ABG (reportedly on 50% FiO2) 7.3/29/294/14.? Urine negative with a blood alcohol level less than 10.? CXR and head CT negative.? Abdominal CT unrevealing. Initial EKG in the ED showed sinus tach 124bpm, loss of R-waves V1 and V2, maybe 1/[address] depression in V3-6. The patient was admitted to the ICU.? Bedside echo showed global LV dysfxn with ? RWMAs.? IVC 2.2 cm w good insp collapse.? She appeared to have some tonic clonic activity, which resolved with Ativan.? She was therefore put on a propofol infusion and had no further seizure/myoclonus.? First repeat troponin was 1143, and a 2nd repeat troponin was 1819.? She was put on a heparin drip, along with ASA, statin, and beta shante.? TTM was attained using a cooling blanket to maintain her temp < 98.6?. Since that first night, she?s had a stable course, except for a 39-beat run of VT on November 19 while her potassium and magnesium were low.? She was put on an amiodarone drip, and VT has not recurred.? She has been on and off pressure support ventilation with no problem, and her FiO2 has been tapered to 25%.? She has had good brainstem reflexes, but remains deeply comatose with no evidence of cortical function until yesterday, when she started having occ eye opening to stimulation.? EEG November 19 showed severe diffuse background slowing consistent with severe diffuse encephalopathy, accord to Dr. Fall?s read.? No seizure activity was noted. The patient has been off propofol now for about 60 hours.? Neurologic exam this morning is unchanged except she now consistently opens her eyes to stimulation.? She remains 100% non interactive.? No response to painful stimulus.? I?ve seen some slight spont movement of her jaw.? Positive corneals, positive doll's eyes.? Babinski is now inconsistently upgoing bilat.? PERRL, about 6mm.? I?ve seen no posturing.? No sz activity or myoclonus since we turned the propofol off.? HR 97 on metoprolol 25 mg q6h.? SR.? BP 151/93 on NTP and valsartan.? On AC 12/350/30%/+5, RR is 21, Ve 8L, PIP 20cm, ETCO2 29mm, Sat 95%.? This morning's CVBG shows 7.53/26/0.? Tmax 100.6? today.? No JVD at 30?.? Chest is CTA.? Heart rate and rhythm are regular, with normal-sounding S1 and S2, with no murmur or gallops.? The abdomen is benign.? She has no peripheral edema.? Urine turned very slightly bloody this afternoon.? The heparin (which was scheduled to be turned off later tonite) was d/c?d. LABORATORY DATA:? As below. MICRO:? Sputum Gram stain results: ?1+ polys, mixed rafaela. ECHOCARDIOGRAM November 19:? Normal wall thickness.? At least moderate global LV dysfunction with regional wall motion abnormalities.? Septum looks akinetic.? LV EF approximately 30%.? RV size and function looks normal.? No significant valvular abnormalities by Doppler.? PA pressure is normal.? IVC measured 1.36 cm with at least 30% inspiratory collapse. Repeat head CT today:? ? progressive loss of palmer-white differentiation, suggesting mild cerebral edema. IMPRESSION: 1. Underlying history of opiate abuse, on methadone 2. Status post OHCA.? 5 minute down time with no CPR, 20+ minutes CPR prior to ROSC. 3. Precipitating etiology likely ACS/acute IA.? (The methadone causing torsades is also in the back of my mind, but that wouldn?t account for her echo findings and trop elevations.)? We gave her heparin gtt, ASA, statin, beta shante.? Turned the heparin gtt off at about 72hrs. 4. ? post event seizures.? No further seizures.? EEG on 11/19 showed no sz activity. 5. Coma.? 2? anoxic encephalopathy.? Severe EEG slowing.? EEG repeated today at about 72 hrs.? Report pending.? The eye opening would seem favorable.? The CT not so.? Stopped her IV fluids.? Ultimate prognosis is grim. 6. Acute respiratory failure.? 2? above 7. Now hypertensive.? Increasing the valsartan and metoprolol.? (Not yet at the level of a Ivette reflex.) 8. Transaminitis likely 2? shock liver.? Improving. 9. ID:? New low grade temp.? Sputum Gram stain is unimpressive. 10. Reactive leukocytosis. 11. Incidental Liver Hemangioma 12. DVT prophylaxis:? SCDs, Lovenox 40. I spoke with the patient?s and [id number] this morning and updated them on her current condition and proposed management.? Critical Care Time (minutes): 60 Physical Exam Vital Signs: Vital Signs: Last Vital Signs Temp 100 F 11/21/21 20:00 Pulse 128 H 11/21/21 20:00 Resp 27 H 11/21/21 20:00 BP 173/101 H 11/21/21 20:00 Pulse Ox 93 11/21/21 20:00 O2 Del Method 11/21/21 20:00 FiO2 30 11/21/21 20:00 BMI result Body Mass Index 23.8 Objective Data Labs CBC & Chem 7: 11/21/21 05:21 11/21/21 05:21 Labs: Laboratory Results - last 24 hr 11/21/21 11/21/21 11/21/21 05:21 05:21 05:21 WBC 13.1 H RBC 3.62 L Hgb 10.3 L Hct 31.0 L MCV 85.6 MCH 28.5 MCHC 33.2 RDW 13.3 Plt Count 254 D MPV 9.1 L Absolute Nucleated RBC 0.000 Nucleated RBC % (auto) 0.0 aPTT Heparin Protocol 41.5 L D VBG pH VBG pCO2 VBG pO2 VBG HCO3 VBG O2 Saturation VBG Base Excess Sodium 133 L Potassium 3.7 Chloride 104 Carbon Dioxide 20 L Anion Gap 13 BUN 19 H Creatinine 0.60 Estim Creat Clear Calc 91.5 Estimated GFR > 60 Random Glucose 132 H Calcium 8.1 L D Phosphorus 2.0 L Magnesium 1.7 11/21/21 11/21/21 05:25 12:06 WBC RBC Hgb Hct MCV MCH MCHC RDW Plt Count MPV Absolute Nucleated RBC Nucleated RBC % (auto) aPTT Heparin Protocol 60.0 D VBG pH 7.53 H VBG pCO2 26 VBG pO2 98 VBG HCO3 22 VBG O2 Saturation 98.0 VBG Base Excess 0.8 Sodium Potassium Chloride Carbon Dioxide Anion Gap BUN Creatinine Estim Creat Clear Calc Estimated GFR Random Glucose Calcium Phosphorus Magnesium Microbiology Microbiology Results: Microbiology 11/21/21 10:17 Sputum - Suctioned Gram Stain - Final 11/19/21 07:02 Blood - Central Line Blood Culture - Preliminary No growth after 48 hours. 11/19/21 06:52 Blood - Central Line Blood Culture - Preliminary No growth after 48 hours. 11/18/21 17:19 Blood - Venous Blood Culture - Preliminary No growth after 48 hours. 11/18/21 17:20 Blood - Venous Blood Culture - Preliminary No growth after 48 hours. Quality Stroke Does the patient have a stroke diagnosis?: No VTE Prior VTE?: No VTE Risk Level:: Medical - moderate - high VTE Device Contraindication: N/A - Device Ordered VTE Drug Contraindication: N/A - Med Ordered Critical Care Time Critical Care Time (minutes): 60
[2021-11-21] MEDS: Atorvastatin Calcium 80 MG TABLET PO (21:26)
[2021-11-21] MEDS: Enoxaparin Sodium 40 MG/0.4 ML SYRINGE SUBCUT (22:44)
[2021-11-21] MEDS: Metoprolol Tartrate 50 MG TABLET PO (22:44)
[2021-11-21] MEDS: Sodium,Potassium Phosphates POWD.PACK 2 PACKET PO (22:45)
[2021-11-21] MEDS: Nitroglycerin 2 % Oint 1 GM Packet 2 INCH TRANSDERMA (23:56)
--- NOTE | 2021-11-21 23:56 | PC.NURSE ---
Patient with cough, gag, breathes over vent, blinks to rapid movements toward eyes, briskly reactive PERRL pupils at 4 mm. Continues off sedation. HR was in 130s with SBP 170's, and discussed with PA and no intervention unless BP above 180, MD ordered increased dose of metoprolol to 50 mg Q8hr, and valsartan 40 additional mg tonight plus increase to 80 mg BID tomorrow. Patient with BP continued in 160's-170's, HR had imprved after PRN fentanyl, as patient seemed to have nonverbal signs of pain with the HR and BP being so high. urine output was 240/hour x2 hours and MD notified. Patient also had no continued bleeding, discussed with MD and new order for lovenox ppx. Patient seems to be posturing with neck rigiid and hyperextended and pupils gazing up to the left, and feet dorsiflexed with rigid lower extremities and neck, MD aware. Continues with #7.0 ETT 24 cm jose AC 12; PEEP 5; TV 350; TE 5.3 to 7.2. ETCO2 around 34. thick creamy inline secretions
[2021-11-22] VITALS (31 sets, daily range): BP systolic 106–158; BP diastolic 67–103; PULSE 97–124; RESP 16–36; TEMP 34.8–38.2; O2SAT 91–97; BMI 23.6
[2021-11-22] MEDS: Metoprolol Tartrate 5 MG/5 ML VIAL IVPUSH (00:57)
[2021-11-22] MEDS: Sodium,Potassium Phosphates POWD.PACK 2 PACKET PO (02:39)
[2021-11-22] MEDS: fentaNYL citrate/PF 100 MCG/2 ML VIAL 25 MCG IVPUSH ×2 (03:20→06:41)
--- NOTE | 2021-11-22 04:28 | PC.NURSE ---
CARE ASSUMED 23:15...EYES OPEN SPONTANEOUSLY..NO FOCUSING OR TRACKING..PUPILS REACTIVE...(+) GAG/COUGH REFLEX..EXTREMETIES FLACCID....REMAINS TUBED/VENTED EPISODES OF HR 120-130/RR 38-42/ELEVATED BP...PRN FENTANYL PER MAR AND LOPRESSOR IV X 1 WITH EFFECT..TALAMANTES SEDIMENTED YELLOW URINE..
[2021-11-22 05:21] LABS: VBG Base Excess -0.6 mmol/L; VBG HCO3 21 mmol/L (22-26); VBG pCO2 27 mmHg; VBG pH 7.49 (7.32-7.43); VBG pO2 50 mmHg
[2021-11-22] MEDS: Nitroglycerin 2 % Oint 1 GM Packet 2 INCH TRANSDERMA (05:55)
[2021-11-22] MEDS: Metoprolol Tartrate 50 MG TABLET PO ×3 (05:56→20:54)
[2021-11-22 05:59] LABS: Hematocrit 31.2 % (37.0-47.0); Hemoglobin 10.3 g/dl (12.0-16.0); Mean Corpuscular Hemoglobin 28.6 pg (27.0-33.0); Mean Corpuscular Volume 86.7 fL (80.0-98.0); Mean Platelet Volume 9.4 fL (9.4-12.3); Platelet Count 305 X10*3/uL (160-400); Red Cell Distribution Width 13.2 % (11.0-16.0); White Blood Count 13.1 X10*3/uL (4.8-10.8)
[2021-11-22 06:17] LABS: Alanine Aminotransferase 97 U/L (0-31); Albumin Level 3.6 g/dL (3.5-5.0); Alkaline Phosphatase 81 U/L (39-117); Anion Gap 13 (12-20); Aspartate Amino Transferase 45 U/L (5-31); Bilirubin Total 0.7 mg/dL (0.0-1.0); Blood Urea Nitrogen 18 mg/dL (9-16); Calcium 8.3 mg/dL (8.4-10.2); Carbon Dioxide 23 mmol/L (22-29); Chloride 103 mmol/L (96-108); Creatinine Clr Calc Pharmacy 81.9; Estimated Glomerular Filt Rate > 60; Glucose Random 135 mg/dL (60-115); Magnesium 2.4 mg/dL (1.6-2.6); Potassium 3.7 mmol/L (3.3-5.1); Sodium 135 mmol/L (135-145)
[2021-11-22 06:48] LABS: Venous Blood Gas Refer to POC result
[2021-11-22] MEDS: Chlorhexidine Gluc Oral Rinse 15 ML MOUTHWASH BUCCAL ×3 (08:07→20:54)
[2021-11-22] MEDS: Valsartan 80 MG TABLET PO ×2 (08:07→20:54)
[2021-11-22] MEDS: Aspirin 81 MG TAB.CHEW 324 MG PO (08:07)
[2021-11-22] MEDS: Amiodarone HCL 200 MG TABLET 400 MG PO ×2 (08:07→20:54)
--- NOTE | 2021-11-22 08:57 | P.PNCC_ITS ---
Subjective Subjective Date of Service: 11/22/21 Interval History: Mrs. Francis was admitted to ICU November 18 after resusc from [id number] cardiac arrest. The patient is a 55-year-old female w PMHx of prescription drug abuse for about 3 years, on methadone since June; hypertension; hyperlipidemia; and current every day smoker.? 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 On November 18, the patient was in her usual state of health, at work in the dental office.? In the early afternoon she complained of a headache.? Sometime later, she was found slumped over, perhaps seizing.? EMS was called.? A BLS crew responded.? Accord to the EMS crew records, the patient was unresponsive, with no bystander CPR, for 5 minutes prior to the EMS arrival.? On arrival of the ambulance crew, the patient was apneic and pulseless.? CPR was begun, w bag valve mask ventilation.? An AED delivered 1 shock.? A 2nd shock was delivered two minutes later.? A 3rd shock was administered enroute to the hospital.? Narcan 2 mg intranasal was administered enroute to the hospital.? The crew offloaded the patient w CPR ongoing and brought the patient into the ED. In the ED, CPR was continued.? An IO device was placed, the patient was given 2 rounds of epinephrine, and ROSC was obtained after approximately 5 minutes of CPR in the ED.? The patient was intubated and a CVL was placed. ?(Summary of approximate time course:? 5 minutes of cardiac arrest prior to beginning CPR;? 20+ minutes duration of CPR until ROSC.)? After ROSC, she was hemod stable, needing no pressors.? FiO2 was weaned rapidly. ED workup was notable for a white count 12.8, Hgb 12.9.? Bicarb 17, anion gap 20, BUN/creat 17/1.3, random glucose 209, Transaminases moderately elevated, lactic acid 5.3, troponin 43, BNP 140, ABG (reportedly on 50% FiO2) 7.3/29/294/14.? CXR and head CT read as negative, altho by my reading, the head CT already showed cerebral edema.? Abdominal CT unrevealing. Initial EKG in the ED showed sinus tach 124bpm, loss of R-waves V1 and V2, maybe 1/[address] depression in V3-6. The patient was admitted to the ICU.? Bedside echo showed global LV dysfxn with ? RWMAs.? IVC 2.2 cm w good insp collapse.? She appeared to have some tonic clonic activity, which resolved with Ativan.? She was therefore put on a propofol infusion and had no further seizure/myoclonus.? First repeat troponin was 1143, and a 2nd repeat troponin was 1819.? She was put on a heparin drip, along with ASA, statin, and beta shante.? TTM was attained using a cooling blanket to maintain her temp < 98.6?. Since that first night, she?s had a stable course, except for a 39-beat run of VT on November 19 while her potassium and magnesium were low.? She was put on an amiodarone drip, and VT has not recurred.? She has been on and off pressure support ventilation with no problem, and her FiO2 has been tapered to 25%.? She has had good brainstem reflexes, but remains deeply comatose with no evidence of cortical function until October, when she started having occ eye opening to stimulation.? Yesterday she had consistent eye opening to stimulation. ?EEG November 19 showed severe diffuse background slowing consistent with severe diffuse encephalopathy, accord to Dr. Fall?s read.? No seizure activity was noted. The patient has been off propofol now for 3 days.? Neurologic exam this morning is pretty much unchanged.? She consistently opens her eyes to stimulation.? She occasionally seemed to move her legs to painful stimulation, but not purposeful, may be a decorticate response, and not consistent.? She remains 100% non interactive.? I?ve seen some slight spont movement of her jaw.? Positive corneals, positive doll's eyes.? Babinski is inconsistently upgoing bilat.? PER RL, about 5mm.? No sz activity or myoclonus since we turned the propofol off.? HR 100 on metoprolol 50 mg q8h.? SR.? BP 115/71 on NTP and valsartan 80mg bid.? On AC 12/350/25%/+5, RR is 18, Ve 7L, PIP 17cm, ETCO2 33mm, Sat 95%.? This morning's CVBG shows 7.49/27/0.? Tmax 100.6? today.? No JVD at 30?.? Chest is CTA.? Heart rate and rhythm are regular, with normal-sounding S1 and S2, with no murmur or gallops.? The abdomen is benign.? She has no peripheral edema.? Urine is clear yellow. Note that last night, she did have some high BP readings, up to the 180?s, with decreased HRs, suggestive of a Ivette reflex.? But no worsening of her neuro status to suggest imminent herniation. LABORATORY DATA:? As below.? Renal indices stable. MICRO:? Sputum Gram stain results:? 1+ polys, mixed rafaela. ECHOCARDIOGRAM November 19:? Normal wall thickness.? At least moderate global LV dysfunction with regional wall motion abnormalities.? Septum looks akinetic.? LV EF approximately 30%.? RV size and function looks normal.? No significant valvular abnormalities by Doppler.? PA pressure is normal.? IVC measured 1.36 cm with at least 30% inspiratory collapse. Repeat head CT yesterday:? Progressive loss of palmer-white differentiation, suggesting mild-mod cerebral edema.? There is some encroachment on the right lateral ventricle.? I reviewed this CT and her previous CT in radiology with Dr. Barraza.? The initial CT is definitely not normal, clearly suggests cerebral edema.? Yesterday?s CT is slightly worse. IMPRESSION: 1. Underlying history of opiate abuse, on methadone 2. Status post OHCA.? 5 minute down time with no CPR, followed by 20+ minutes CPR prior to ROSC. 3. Precipitating etiology likely ACS/acute [place].? (The methadone causing torsades is also in the back of my mind, but that wouldn?t account for her echo findings and trop elevations.)? We gave her heparin gtt, ASA, statin, beta shante.? Turned the heparin gtt off at about 72hrs. 4. ? post event seizures.? No further seizures.? EEG on 11/19 showed no sz activity. 5. Coma.? 2? anoxic encephalopathy.? Severe EEG slowing.? The eye opening would seem favorable.? The CT very much not so.? Stopped her IV fluids.? Ultimate prognosis is grim.? Her CT very much suggests that she will never have return of cortical fxn. 6. Acute respiratory failure.? 2? above 7. Now hypertensive.? Increasing the valsartan and metoprolol.? (Not yet at the level of a Ivette reflex.)? D/C the NTP 8. Transaminitis likely 2? shock liver.? Improving. 9. ID:? Low grade temps.? Sputum Gram stain is unimpressive. 10. Reactive leukocytosis. 11. Incidental Liver Hemangioma 12. DVT prophylaxis:? SCDs, Lovenox 40. I spoke with the patient?s and [id number] and [id number] (the latter a retired pediatric ICU doc) ?this morning and updated them on her current condition and proposed management.? I showed all the them her head CTs, with comparison to a normal head CT image on the web.? They fully understand the situation.? The indicated that he did not want a tracheostomy and PEG.? I also talked with them about DNR status.? I will write DNR orders. Critical Care Time (minutes): 90 Physical Exam Vital Signs: Vital Signs: Last Vital Signs Temp 100.2 F 11/22/21 08:00 Pulse 107 H 11/22/21 08:00 Resp 20 11/22/21 08:00 BP 121/82 11/22/21 08:00 Pulse Ox 97 11/22/21 08:00 O2 Del Method 11/22/21 08:00 FiO2 40 11/22/21 08:00 BMI result Body Mass Index 23.6 Objective Data Labs CBC & Chem 7: 11/22/21 05:15 11/22/21 05:15 Labs: Laboratory Results - last 24 hr 11/21/21 11/22/21 11/22/21 12:06 05:15 05:15 WBC 13.1 H RBC 3.60 L Hgb 10.3 L Hct 31.2 L MCV 86.7 MCH 28.6 MCHC 33.0 RDW 13.2 Plt Count 305 MPV 9.4 Absolute Nucleated RBC 0.000 Nucleated RBC % (auto) 0.0 aPTT Heparin Protocol 60.0 D VBG pH VBG pCO2 VBG pO2 VBG HCO3 VBG O2 Saturation VBG Base Excess Sodium 135 Potassium 3.7 Chloride 103 Carbon Dioxide 23 Anion Gap 13 BUN 18 H Creatinine 0.67 Estim Creat Clear Calc 81.9 Estimated GFR > 60 Random Glucose 135 H Calcium 8.3 L Phosphorus 3.0 Magnesium 2.4 Total Bilirubin 0.7 AST 45 H D ALT 97 H Alkaline Phosphatase 81 Total Protein 6.0 L Albumin 3.6 11/22/21 05:16 WBC RBC Hgb Hct MCV MCH MCHC RDW Plt Count MPV Absolute Nucleated RBC Nucleated RBC % (auto) aPTT Heparin Protocol VBG pH 7.49 H VBG pCO2 27 VBG pO2 50 VBG HCO3 21 L VBG O2 Saturation 82.0 VBG Base Excess -0.6 Sodium Potassium Chloride Carbon Dioxide Anion Gap BUN Creatinine Estim Creat Clear Calc Estimated GFR Random Glucose Calcium Phosphorus Magnesium Total Bilirubin AST ALT Alkaline Phosphatase Total Protein Albumin Microbiology Microbiology Results: Microbiology 11/21/21 10:17 Sputum - Suctioned Gram Stain - Final 11/19/21 07:02 Blood - Central Line Blood Culture - Preliminary No growth after 48 hours. 11/19/21 06:52 Blood - Central Line Blood Culture - Preliminary No growth after 48 hours. 11/18/21 17:19 Blood - Venous Blood Culture - Preliminary No growth after 48 hours. 11/18/21 17:20 Blood - Venous Blood Culture - Preliminary No growth after 48 hours. Quality Stroke Does the patient have a stroke diagnosis?: No VTE Prior VTE?: No VTE Risk Level:: Medical - moderate - high VTE Device Contraindication: N/A - Device Ordered VTE Drug Contraindication: N/A - Med Ordered Critical Care Time Critical Care Time (minutes): 90
[2021-11-22] MEDS: fentaNYL citrate/PF 100 MCG/2 ML VIAL 50 MCG IVPUSH ×2 (09:03→10:38)
[2021-11-22] MEDS: Lactulose 20 GM/30 ML SOLUTION 40 GM OG-TUBE (10:39)
--- NOTE | 2021-11-22 10:39 | PM.PNCARD ---
Subjective Subjective Date of Service: 11/22/21 Principal diagnosis: Status post cardiac arrest, NSTEMI Interval history: Patient without any much cortical response to stimuli. Remains hemodynamically stable. Occasional episodes of elevated blood pressure. Some episode of nonsustained VT. Repeat EEG report is pending Review of Systems Review of Systems Yes unobtainable due to endotracheal tube Physical Exam Vital Signs: Last Vital Signs Temp 100.2 F 11/22/21 10:00 Pulse 103 H 11/22/21 10:00 Resp 21 H 11/22/21 10:00 BP 106/67 11/22/21 10:00 Pulse Ox 96 11/22/21 10:00 O2 Del Method 11/22/21 10:00 FiO2 40 11/22/21 10:00 BMI result Body Mass Index 23.6 Const General: other (Intubated) Nutritional Appearance: average body habitus Neck Neck: Yes trachea midline, Yes supple and Yes no JVD Resp Effort & Inspection: normal respiratory effort Auscultation: bronchovesicular breath sounds diffuse Cardio Jugular venous distension: no JVD Rate: tachycardic Rhythm: regular rhythm Heart sounds: S1 normal heart sound present, S2 normal heart sound present, no click, no gallops and no murmurs GI Auscultation: normal bowel sounds Skin General skin exam: no rashes or lesions noted Objective Labs and Meds Result diagrams: 11/22/21 05:15 11/22/21 05:15 Lab results: Laboratory Results - last 24 hr 11/21/21 11/22/21 11/22/21 12:06 05:15 05:15 WBC 13.1 H RBC 3.60 L Hgb 10.3 L Hct 31.2 L MCV 86.7 MCH 28.6 MCHC 33.0 RDW 13.2 Plt Count 305 MPV 9.4 Absolute Nucleated RBC 0.000 Nucleated RBC % (auto) 0.0 aPTT Heparin Protocol 60.0 D VBG pH VBG pCO2 VBG pO2 VBG HCO3 VBG O2 Saturation VBG Base Excess Sodium 135 Potassium 3.7 Chloride 103 Carbon Dioxide 23 Anion Gap 13 BUN 18 H Creatinine 0.67 Estim Creat Clear Calc 81.9 Estimated GFR > 60 Random Glucose 135 H Calcium 8.3 L Phosphorus 3.0 Magnesium 2.4 Total Bilirubin 0.7 AST 45 H D ALT 97 H Alkaline Phosphatase 81 Total Protein 6.0 L Albumin 3.6 11/22/21 05:16 WBC RBC Hgb Hct MCV MCH MCHC RDW Plt Count MPV Absolute Nucleated RBC Nucleated RBC % (auto) aPTT Heparin Protocol VBG pH 7.49 H VBG pCO2 27 VBG pO2 50 VBG HCO3 21 L VBG O2 Saturation 82.0 VBG Base Excess -0.6 Sodium Potassium Chloride Carbon Dioxide Anion Gap BUN Creatinine Estim Creat Clear Calc Estimated GFR Random Glucose Calcium Phosphorus Magnesium Total Bilirubin AST ALT Alkaline Phosphatase Total Protein Albumin Imaging Radiologist's impression: Impressions Head CT 11/21/21 18:19 IMPRESSION: No acute intracranial process seen. Mild loss of shaw-white matter junction slightly more prominent compared to 11/18/2021. The cortical sulci are less distinct. Question mild cerebral edema. Progress Note: A&P Assessment and plan (1) Cardiac arrest: Status: Acute Assessment and Plan: Status post cardiac arrest with clinical hypoxic encephalopathy awaiting repeat EEG to assess for cortical functioning. Patient has underlying ischemic cardiomyopathy and NSTEMI. Currently hemodynamically stable. Continue current cardiac meds including neurohormonal modulation with valsartan and metoprolol as well as aspirin and statin therapy. Continue with supportive care. Further treatment plan based on her neurologic function. Findings were discussed with patient's significant other at bedside. Will sign of the case at this point time. Feel free to contact us again. Time Spent With Patient Time: Total time spent is greater than 50% in coordination of care (as documented) at patient's floor/unit and/or counseling patient: Progress Note: Quality Stroke Does the patient have a stroke diagnosis?: No Procedures Date of Service Date of Service: 11/22/21
--- NOTE | 2021-11-22 10:49 | MHC.CLN ---
F/U PT REMAINS INTUBATED PT CURRENTLY TOLERATING PROMOTE AT 20ML/HR RECOMMEND TF JEVITY 1.0 AT MAX GOAL RATE 60ML/HR WITH 120ML FREE WATER FLUSHES Q 8 HRS TO PROVIDE 1526KCALS (27KCALS/KG BASED ON CMW), 63.7G PROTEIN (1.1G/KG), 1562ML TOTAL WATER FROM FORMULA AND FLUSHES (27ML/KG) MONITOR TOLERANCE, RESIDUALS AND LYTES
--- NOTE | 2021-11-22 13:53 | MHC.CM.PN ---
Pt remains intubated following cardiac resuscitation: CT of head shows edema: no return of neuro function. MD to discuss findings with family. 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 CM to follow
--- NOTE | 2021-11-22 19:52 | PC.NURSE ---
Assumed care at 07:00. Patient exam with cough, gag, breathes over vent, blinks to rapid movements toward eyes, briskly reactive PERRL pupils at 4 mm. Continues off sedation. HR much better today in the low 100's most of the day. SBP much better today after increases in metoprolol and valsartan yesterday, systolic BP mostly 110's-120's today. Fentanyl PRN dose increased by MD, and given 1x dose per MD with good effect, then later, repositioning patient this morning seemed to trigger a coughing fit, PRN fentanyl with good effect. Urine output about 30 cc per hour. Family in today goals of care discussions were had with MD, and code status was changed to DNR per family, with continuing discussions. Patient continues to demonstrate neck rigidity, hyperextended neck, and pupils gazing up to the left, and feet dorsiflexed with rigid lower extremities and neck, MD aware. Continues with #7.0 ETT 24 cm jose AC 12; PEEP 5; TV 350; FiO2 weaned from 40% to 25%; TE 7.1. Lessening thick creamy inline secretions. Diet was changed to Jevity 1 tyler max rate 60, well tolerated, rate increased to 30 cc/hour, H20 120 cc q8 hours given at 15:00. Lactulose given PRN , succcessfully had TOM, moses'd order per MD.
[2021-11-22] MEDS: Atorvastatin Calcium 80 MG TABLET PO (20:54)
[2021-11-22] MEDS: Enoxaparin Sodium 40 MG/0.4 ML SYRINGE SUBCUT (20:54)
[2021-11-23] VITALS (28 sets, daily range): BP systolic 100–171; BP diastolic 62–99; PULSE 91–115; RESP 17–34; TEMP 34.8–38.6; O2SAT 90–99; BMI 22.8
[2021-11-23 05:36] LABS: VBG Base Excess 3.6 mmol/L; VBG HCO3 25 mmol/L (22-26); VBG pCO2 30 mmHg; VBG pH 7.53 (7.32-7.43); VBG pO2 77 mmHg
[2021-11-23 05:39] LABS: Venous Blood Gas Refer to POC result
[2021-11-23] MEDS: Metoprolol Tartrate 50 MG TABLET PO ×2 (06:29→13:39)
[2021-11-23] MEDS: fentaNYL citrate/PF 100 MCG/2 ML VIAL IVPUSH (06:47)
[2021-11-23] MEDS: Chlorhexidine Gluc Oral Rinse 15 ML MOUTHWASH BUCCAL ×2 (10:15→13:39)
[2021-11-23] MEDS: Amiodarone HCL 200 MG TABLET 400 MG PO (10:15)
[2021-11-23] MEDS: Aspirin 81 MG TAB.CHEW 324 MG PO (10:16)
[2021-11-23] MEDS: Valsartan 80 MG TABLET PO (10:16)
[2021-11-23] MEDS: Nitroglycerin 2 % Oint 1 GM Packet 2 INCH TRANSDERMA (13:44)
[2021-11-23] MEDS: fentaNYL citrate/PF 100 MCG/2 ML VIAL 50 MCG IVPUSH (13:45)
--- NOTE | 2021-11-23 16:34 | PM.CCPN ---
Subjective Subjective Date of Service: 11/23/21 Interval History: Mrs. Francis was admitted to ICU November 18 after resusc from [id number] cardiac arrest. The patient is a 55-year-old female w PMHx of prescription drug abuse for about 3 years, on methadone since June; hypertension; hyperlipidemia; and current every day smoker.? 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 On November 18, the patient was in her usual state of health, at work in the dental office.? In the early afternoon she complained of a headache.? Sometime later, she was found slumped over, perhaps seizing.? EMS was called.? A BLS crew responded.? Accord to the EMS crew records, the patient was unresponsive, with no bystander CPR, for 5 minutes prior to the EMS arrival.? On arrival of the ambulance crew, the patient was apneic and pulseless.? CPR was begun, w bag valve mask ventilation.? An AED delivered 1 shock.? A 2nd shock was delivered two minutes later.? A 3rd shock was administered enroute to the hospital.? Narcan 2 mg intranasal was administered enroute to the hospital.? The crew offloaded the patient w CPR ongoing and brought the patient into the ED. In the ED, CPR was continued.? An IO device was placed, the patient was given 2 rounds of epinephrine, and ROSC was obtained after approximately 5 minutes of CPR in the ED.? The patient was intubated and a CVL was placed. ?(Summary of approximate time course:? 5 minutes of cardiac arrest prior to beginning CPR;? 20+ minutes duration of CPR until ROSC.)? After ROSC, she was hemod stable, needing no pressors.? FiO2 was weaned rapidly. ED workup was notable for a white count 12.8, Hgb 12.9.? Bicarb 17, anion gap 20, BUN/creat 17/1.3, random glucose 209, Transaminases moderately elevated, lactic acid 5.3, troponin 43, BNP 140, ABG (reportedly on 50% FiO2) 7.3/29/294/14.? CXR and head CT read as negative, altho by my reading, the head CT already showed cerebral edema.? Abdominal CT unrevealing.? Initial EKG in the ED showed sinus tach 124bpm, loss of R-waves V1 and V2, maybe 1/[address] depression in V3-6. The patient was admitted to the ICU.? Bedside echo showed global LV dysfxn with ? RWMAs.? IVC 2.2 cm w good insp collapse.? She appeared to have some tonic clonic activity, which resolved with Ativan.? She was therefore put on a propofol infusion and had no further seizure/myoclonus.? First repeat troponin was 1143, and a 2nd repeat troponin was 1819.? She was put on a heparin drip, along with ASA, statin, and beta shante.? TTM was attained using a cooling blanket to maintain her temp < 98.6?. Since that first night, she?s had a stable course, except for a 39-beat run of VT on November 19 while her potassium and magnesium were low.? She was put on an amiodarone drip, and VT has not recurred.? She has been on and off pressure support ventilation with no problem, and her FiO2 has been tapered to 25%.? She has had good brainstem reflexes, but remains deeply comatose with no evidence of cortical function until October, when she started having occ eye opening to stimulation.? But that?s the best she?s done, no further neurologic improvement.? EEG November 19 showed severe diffuse background slowing consistent with severe diffuse encephalopathy, accord to Dr. Fall?s read.? No seizure activity was noted. The patient has been off propofol now for 4 days.? Neurologic exam this morning is unchanged.? She consistently opens her eyes to stimulation.? I saw her yawn once.? No other movement.? Occ cough on her secretions.? She remains 100% non interactive.? Positive corneals, positive doll's eyes.? Babinski is flat today bilat.? PERRL, about 5mm.? No sz activity or myoclonus since we turned the propofol off.? HR 102 on metoprolol 50 mg q8h.? SR.? BP 117/62 on NTP and valsartan 80mg bid.? On PSV 5/21%/+5, RR is 21, Vt 330cc, Ve 6.8L, Sat 93%.? This morning's CVBG showed 7.53/30/+3.? Tmax 101.5? today.? No JVD at 30?.? Chest has diffuse light rhonchi, normal exp phase.? Heart tones soft, no murmur or gallops.? The abdomen is benign.? She has trace edema.? Urine is dark yellow. LABORATORY DATA:? As below.? Renal indices stable. MICRO:? Sputum Gram stain results:? 1+ polys, mixed rafaela.? Grew out 4+ Staph today.? Sensitiv pending. ECHOCARDIOGRAM November 19:? Normal wall thickness.? At least moderate global LV dysfunction with regional wall motion abnormalities.? Septum looks akinetic.? LV EF approximately 30%.? RV size and function looks normal.? No significant valvular abnormalities by Doppler.? PA pressure is normal.? IVC measured 1.36 cm with at least 30% inspiratory collapse. Repeat head CT November 21:? Progressive loss of palmer-white differentiation, suggesting mild-mod cerebral edema.? There is some encroachment on the right lateral ventricle.? I reviewed this CT and her previous CT in radiology with Dr. Barraza.? The initial CT is definitely not normal, clearly shows cerebral edema.? The CT from 11/21 is slightly worse. IMPRESSION: 1. Underlying history of opiate abuse, on methadone 2. Status post OHCA.? 5 minute down time with no CPR, followed by 20+ minutes CPR prior to ROSC. 3. Precipitating etiology likely ACS/acute [place].? (The methadone causing torsades is also in the back of my mind, but that wouldn?t account for her echo findings and trop elevations.)? We gave her heparin gtt, ASA, statin, beta shante.? Turned the heparin gtt off at about 72hrs. 4. ? post event seizures.? No further seizures.? EEG on 11/19 showed no sz activity. 5. Coma.? 2? anoxic encephalopathy.? Severe EEG slowing.? The CT indicates a poor prognosis for recovery of any cortical fxn. 6. Acute respiratory failure.? 2? above 7. Hypertensive.? Increased the valsartan and metoprolol.? Put her back on NTP today. 8. Transaminitis likely 2? shock liver. 9. ID:? Low grade temps.? Sputum Gram stain is unimpressive.? Staph likely a colonizer.? If the family wants, I would treat it. 10. Reactive leukocytosis. 11. Incidental Liver Hemangioma 12. DVT prophylaxis:? SCDs, Lovenox 40. I spoke with the patient?s and [id number] and [id number] (the latter a retired pediatric ICU doc) yesterday morning and updated them on her current condition and proposed management.? I showed all the them her head CTs, with comparison to a normal head CT image on the web.? They fully understand the situation.? The indicated that he did not want a tracheostomy and PEG.? I also talked with them about DNR status.? I wrote DNR orders. ADDENDUM:? I spoke with the patient?s and sister and they indicated that they would like to extubate to comfort measures later this afternoon.? I laid the groundwork by changing her to PSV. At about 1655, the patient was extubated without incident.? An hour later she?s breathing easy with a mostly clear airway, HR 100s, SR, Sat 88% on room air. I signed her out to GEE Cuello from the hospitalist team in case she needs to triage out tonight, otherwise she?d likely transfer up to the hospitalist room tomorrow. Critical care time:? 80+ min. Critical Care Time (minutes): 80 Physical Exam Vital Signs: Vital Signs: Last Vital Signs Temp 100.6 F H 11/23/21 16:00 Pulse 100 11/23/21 16:00 Resp 21 H 11/23/21 16:00 BP 117/62 11/23/21 16:00 Pulse Ox 95 11/23/21 16:00 O2 Del Method 11/23/21 16:00 FiO2 30 11/23/21 16:00 BMI result Body Mass Index 22.8 Objective Data Labs CBC & Chem 7: 11/22/21 05:15 11/22/21 05:15 Labs: Laboratory Results - last 24 hr 11/23/21 05:33 VBG pH 7.53 H VBG pCO2 30 VBG pO2 77 VBG HCO3 25 VBG O2 Saturation 96.0 VBG Base Excess 3.6 Microbiology Microbiology Results: Microbiology 11/21/21 10:17 Sputum - Suctioned Gram Stain - Final 11/21/21 10:17 Sputum - Suctioned Sputum Culture - Preliminary Staphylococcus aureus 11/19/21 07:02 Blood - Central Line Blood Culture - Preliminary No growth after 48 hours. 11/19/21 06:52 Blood - Central Line Blood Culture - Preliminary No growth after 48 hours. 11/18/21 17:19 Blood - Venous Blood Culture - Preliminary No growth after 48 hours. 11/18/21 17:20 Blood - Venous Blood Culture - Preliminary No growth after 48 hours. Quality Stroke Does the patient have a stroke diagnosis?: No VTE Prior VTE?: No VTE Risk Level:: Medical - moderate - high VTE Device Contraindication: N/A - Device Ordered VTE Drug Contraindication: N/A - Med Ordered Critical Care Time Critical Care Time (minutes): 90
[2021-11-23] MEDS: HYDROmorphone HCl 1 MG/ML SYRINGE IVPUSH ×3 (16:52→22:30)
[2021-11-23] MEDS: Scopolamine 1.5 MG PATCH.TD.3 EAR-BEHIND (23:07)
[2021-11-24] VITALS (15 sets, daily range): RESP 29–56
[2021-11-24] MEDS: HYDROmorphone HCl 1 MG/ML SYRINGE IVPUSH ×4 (01:10→10:55)
[2021-11-24] MEDS: fentaNYL citrate/PF 100 MCG/2 ML VIAL IVPUSH ×3 (02:45→11:49)
--- NOTE | 2021-11-24 06:30 | PM.EVENT ---
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 At this point the patient does not require ICU care anymore. Patient was signed out to Dr. Jo, the patient will be transferred to Med surg. Case was discussed in detail with Dr. Araujo. He is aware of all the above as well as the plan of care for this patient.
[2021-11-24] MEDS: fentaNYL citrate/PF 100 MCG/2 ML VIAL 50 MCG IVPUSH ×4 (07:35→09:18)
[2021-11-24] MEDS: fentaNYL citrate/NS 1,000 MCG/100 ML PLAST..BAG 10 MCG IVCONT (11:52)
--- NOTE | 2021-11-24 13:14 | HO.PM.IMPN ---
Subjective Subjective Date of Service: 11/24/21 Review of Systems Follow-up cardiac arrest, transfer from the ICU Comfort measures only Physical Exam Vital Signs: Vital Signs: Last Vital Signs Temp 100.6 F H 11/23/21 16:00 Pulse 100 11/23/21 16:00 Resp 31 H 11/24/21 11:49 BP 117/62 11/23/21 16:00 Pulse Ox 95 11/23/21 16:00 O2 Del Method 11/23/21 16:00 FiO2 30 11/23/21 16:00 BMI result Body Mass Index 22.8 open mouth, belly breathing Nonresponsive Objective Data Active Medications Fentanyl (Fentanyl Citrate/Pf 100 Mcg/2 Ml Vial) 50 mcg IVPUSH Q5M PRN; Protocol PRN Reason: resp distress, WOB, cough Last Admin: 11/24/21 09:18 Dose: 50 mcg Documented By: TRACE Hydromorphone HCl (Hydromorphone Hcl 1 Mg/Ml Syringe) 1 mg IVPUSH Q2H PRN; Protocol PRN Reason: moderate WOB or distress Last Admin: 11/24/21 10:55 Dose: 1 mg Documented By: JACLYN Fentanyl (Sublimaze/Ns) 1,000 mcg in 100 mls @ 0 mls/hr IVCONT .Q0M LYNN; Protocol Last Titration: 11/24/21 12:56 Dose: 125 mcg/hr, 12.5 mls/hr Documented By: TRACE Naloxone HCl (Naloxone Hcl 0.4 Mg/Ml Vial) 0.2 mg IVPUSH Q2M PRN PRN Reason: Excessive sedation or RR < 8 Scopolamine (Scopolamine 1.5 Mg Patch.Td.3) 1.5 mg EAR-BEHIND Q72H COUNTS INCLUDE 234 BEDS AT THE [facility] Last Admin: 11/23/21 23:07 Dose: 1.5 mg Documented By: NOLBERTO Labs CBC & Chem 7: 11/22/21 05:15 11/22/21 05:15 Microbiology Microbiology Results: Microbiology 11/19/21 07:02 Blood Culture - Final Blood - Central Line No growth after 5 days. 11/19/21 06:52 Blood Culture - Final Blood - Central Line No growth after 5 days. 11/21/21 10:17 Gram Stain - Final Sputum - Suctioned Sputum Culture - Preliminary Staphylococcus aureus 11/18/21 17:19 Blood Culture - Final Blood - Venous No growth after 5 days. 11/18/21 17:20 Blood Culture - Final Blood - Venous No growth after 5 days. Assessment and Plan (1) Hypoxic encephalopathy: Status: Acute Plan 55-year-old woman status post [id number] cardiac arrest. Apparently she had been working and sitting at her desk and complained of a headache, some time later slumped over, EMS was contacted. Patient was unresponsive with no bystander CPR for approximately 5 minutes prior to EMS arrival. Per EMS notes the patient was found to be apneic and pulseless. She ride to the ER after multiple AICD shocks and continued CPR. Specific treatment found in the intensive care provider's note. She was subsequently intubated and admitted to the ICU. She was cooled and had been stable. She did have an episode V-tach and was placed on amiodarone and had no further episodes. After observation patient had CT done which did show cerebral edema slightly worse on November 21. After discussing the case with the patient's family was decided that the patient would be changed to comfort measures only. She was subsequently extubated at 17:00 on 11/23/2021. Discussed with Dr. Araujo regarding transfer to medical floor. 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 Gruber UPHOLSTERY TECH Quality Stroke Does the patient have a stroke diagnosis?: No VTE Prior VTE?: No VTE Risk Level:: Medical - moderate - high VTE Device Contraindication: N/A - Device Ordered VTE Drug Contraindication: N/A - Med Ordered
--- NOTE | 2021-11-24 13:18 | PC.NURSE ---
Family requesting [facility] - calls placed to four different local [facility]. Family requesting [facility] mary to visit - Call placed to [facility] [place] and awaiting call back. Patient continued in respiratory distress despite multiple IVP doses of Fentanyl & Dilaudid. GEE Ely notified and at bedside. Fentanyl 100mcg IVP and Fentanyl gtt ordered and started at 100mcg/hr and titrated per EMAR- okay per GEE Ely. Patient bathed and dressed in home attire per family request. Patient repositioned q2hr. Mouth care preformed q2hr by staff and family at bedside. Comfort cart requested from kitchen.
[2021-11-24] MEDS: fentaNYL citrate/NS 1,000 MCG/100 ML PLAST..BAG 15 MCG IVCONT (17:53)
--- NOTE | 2021-11-24 18:37 | PC.NURSE ---
pt brought to med surg unit on ordered Fentanyl drip. Pt [employer]EE[employer]. Per Nursing pipe fitter supervisor telepack and O2 monitor placed on pt due to the fentanyl drip. Done per policy per Nursing pipe fitter supervisor. at bedside. Will continue to monitor.
[2021-11-25] MEDS: fentaNYL citrate/NS 1,000 MCG/100 ML PLAST..BAG 15 MCG IVCONT ×2 (01:02→08:02)
[2021-11-25] MEDS: HYDROmorphone HCl 1 MG/ML SYRINGE IVPUSH ×3 (08:10→11:18)
[2021-11-25] MEDS: LORazepam 2 MG/ML VIAL 1 MG IVPUSH ×3 (08:57→21:30)
--- NOTE | 2021-11-25 09:12 | P.PNIM_ITS ---
Subjective Subjective Date of Service: 11/25/21 Review of Systems Follow-up cardiac arrest, transfer from the ICU Comfort measures only Physical Exam Vital Signs: Vital Signs: Last Vital Signs Temp 100.6 F H 11/23/21 16:00 Pulse 100 11/23/21 16:00 Resp 31 H 11/24/21 11:49 BP 117/62 11/23/21 16:00 Pulse Ox 95 11/23/21 16:00 O2 Del Method 11/23/21 16:00 FiO2 30 11/23/21 16:00 BMI result Body Mass Index 22.8 Tachypneic, mouth breathing warm skin somnolent Objective Data Active Medications Fentanyl (Fentanyl Citrate/Pf 100 Mcg/2 Ml Vial) 50 mcg IVPUSH Q5M PRN; Protocol PRN Reason: resp distress, WOB, cough Last Admin: 11/24/21 09:18 Dose: 50 mcg Documented By: TRACE Hydromorphone HCl (Hydromorphone Hcl 1 Mg/Ml Syringe) 1 mg IVPUSH Q2H PRN; Protocol PRN Reason: moderate WOB or distress Last Admin: 11/25/21 08:10 Dose: 1 mg Documented By: CHANDAN Fentanyl (Sublimaze/Ns) 1,000 mcg in 100 mls @ 0 mls/hr IVCONT .Q0M LYNN; Protocol Last Admin: 11/25/21 08:02 Dose: 150 mcg/hr, 15 mls/hr Documented By: CHANDAN Lorazepam (Lorazepam 2 Mg/Ml Vial) 1 mg IVPUSH Q4H PRN PRN Reason: anxiety Naloxone HCl (Naloxone Hcl 0.4 Mg/Ml Vial) 0.2 mg IVPUSH Q2M PRN PRN Reason: Excessive sedation or RR < 8 Scopolamine (Scopolamine 1.5 Mg Patch.Td.3) 1.5 mg EAR-BEHIND Q72H LYNN Last Admin: 11/23/21 23:07 Dose: 1.5 mg Documented By: NOLBERTO Labs CBC & Chem 7: 11/22/21 05:15 11/22/21 05:15 Microbiology Microbiology Results: Microbiology 11/21/21 10:17 Gram Stain - Final Sputum - Suctioned Sputum Culture - Final Staphylococcus aureus Haemophilus influenzae 11/19/21 07:02 Blood Culture - Final Blood - Central Line No growth after 5 days. 11/19/21 06:52 Blood Culture - Final Blood - Central Line No growth after 5 days. Assessment and Plan (1) Hypoxic encephalopathy: Status: Acute Plan 55-year-old woman status post [id number] cardiac arrest. Apparently she had been working and sitting at her desk and complained of a headache, some time later slumped over, EMS was contacted. Patient was unresponsive with no bysta nder CPR for approximately 5 minutes prior to EMS arrival. Per EMS notes the patient was found to be apneic and pulseless. She ride to the ER after multiple AICD shocks and continued CPR. Specific treatment found in the intensive care provider's note. She was subsequently intubated and admitted to the ICU. She was cooled and had been stable. She did have an episode V-tach and was placed on amiodarone and had no further episodes. After observation patient had CT done which did show cerebral edema slightly worse on November 21. After discussing the case with the patient's family was decided that the patient would be changed to comfort measures only. She was subsequently extubated at 17:00 on 11/23/2021. Discussed with Dr. Araujo regarding transfer to medical floor. 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 Joseph ATWOOD Quality Stroke Does the patient have a stroke diagnosis?: No VTE Prior VTE?: No VTE Risk Level:: Medical - moderate - high VTE Device Contraindication: N/A - Device Ordered VTE Drug Contraindication: N/A - Med Ordered
--- NOTE | 2021-11-25 10:53 | MHC.CLN ---
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 EXTUBATED AND TF DISCONTINUED 11/23. RD AVAILABLE IF NEEDED.
[2021-11-25] MEDS: HYDROmorphone HCl 1 MG/ML SYRINGE 2 MG IVPUSH (12:12)
[2021-11-25] MEDS: Acetaminophen Supp 650 MG SUPP.RECT PR (12:59)
[2021-11-25] MEDS: Morphine Sulfate 2 MG/ML CARTRIDGE IVPUSH (14:14)
[2021-11-25] MEDS: Morphine Sulfate 4 MG/ML CARTRIDGE 3 MG IVPUSH ×4 (14:50→18:07)
--- NOTE | 2021-11-25 15:42 | MHC.CM.PN ---
nurse case advocate note electronic medical record reviewed ralph with case discussed with the hospitlaist assigned to patient today patient with s/p cardiac arrest was in icu and transferred to medical surgical unti , on business info consultant comfort measures only . per documentation (Tachycardia/tachypnea/fever. referral to the [facility] for eligibility for [facility] , liaison came in to see and evaluate patient and then spoke with her expectative diretctor. per documetatio discussed that [facility] sec to staffing would not be able to sign patient on to their services , but spoke with hospitlaist and made medication recommendations . per documentaitons patient has been on fentanyl gtt then dilaudid and now will be switched to morphone as needed and may consider morphine gtt was here yesterday to give prayers case advocate to augusto to follow for grief support to the family
[2021-11-25 16:30] VITALS: RESP 42
[2021-11-25] MEDS: Morphine Sulfate/NS 100 MG/100 ML PLAST..BAG IVCONT (18:45)
[2021-11-25 23:54] VITALS: RESP 39
--- NOTE | 2021-11-25 23:57 | PC.NURSE ---
Pt noted with RR =39, Morphine drip titrated up to 3 mg/hr at 2356 as per written order, witnessed by Mary Heller RN.
--- NOTE | 2021-11-25 23:59 | PC.NURSE ---
Witnessed RN increase Morphine drip rate from 2mg to 3mg/hr at 23:56 due to elevated RR.
[2021-11-26] MEDS: LORazepam 2 MG/ML VIAL 1 MG IVPUSH ×3 (01:55→14:06)
[2021-11-26 04:47] VITALS: RESP 32
--- NOTE | 2021-11-26 04:49 | PC.NURSE ---
RR still high at 32, Morphine drip increased to 4 mg/hr at 0447 as per order protocol, as witnessed by Mary Heller RN.
--- NOTE | 2021-11-26 04:57 | PC.NURSE ---
At 04:47, I witnessed patient's nurse increased Morphine drip to 4mg/hr due to elevated RR.
--- NOTE | 2021-11-26 08:06 | HO.PM.IMPN ---
Subjective Subjective Date of Service: 11/26/21 Review of Systems Follow-up cardiac arrest, transfer from the ICU Comfort measures only Physical Exam Vital Signs: Vital Signs: Last Vital Signs Temp 100.6 F H 11/23/21 16:00 Pulse 100 11/23/21 16:00 Resp 32 H 11/26/21 04:47 BP 117/62 11/23/21 16:00 Pulse Ox 95 11/23/21 16:00 O2 Del Method 11/25/21 16:30 O2 Flow Rate 3 11/25/21 16:30 FiO2 30 11/23/21 16:00 BMI result Body Mass Index 22.8 mouth and belly breathing LS rhonchi somnolent/obtunded Objective Data Active Medications Morphine Sulfate () 100 mg in 100 mls @ 0 mls/hr IVCONT .Q0M LYNN; Protocol Last Infusion: 11/26/21 04:47 Dose: 4 mg/hr, 4 mls/hr Documented By: DENTON Lorazepam (Lorazepam 2 Mg/Ml Vial) 1 mg IVPUSH Q2H PRN PRN Reason: anxiety Last Admin: 11/26/21 01:55 Dose: 1 mg Documented By: DENTON Naloxone HCl (Naloxone Hcl 0.4 Mg/Ml Vial) 0.2 mg IVPUSH Q2M PRN PRN Reason: Excessive sedation or RR < 8 Scopolamine (Scopolamine 1.5 Mg Patch.Td.3) 1.5 mg EAR-BEHIND Q72H LYNN Last Admin: 11/23/21 23:07 Dose: 1.5 mg Documented By: NOLBERTO Labs CBC & Chem 7: 11/22/21 05:15 11/22/21 05:15 Assessment and Plan (1) Hypoxic encephalopathy: Status: Acute Plan 55-year-old woman status post [id number] cardiac arrest. Apparently she had been working and sitting at her desk and complained of a headache, some time later slumped over, EMS was contacted. Patient was unresponsive with no bystander CPR for approximately 5 minutes prior to EMS arrival. Per EMS notes the patient was found to be apneic and pulseless. She ride to the ER after multiple AICD shocks and continued CPR. Specific treatment found in the intensive care provider's note. She was subsequently intubated and admitted to the ICU. She was cooled and had been stable. She did have an episode V-tach and was placed on amiodarone and had no further episodes. After observation patient had CT done which did show cerebral edema slightly worse on November 21. After discussing the case with the patient's family was decided that the patient would be changed to comfort measures only. She was subsequently extubated at 17:00 on 11/23/2021. Discussed with Dr. Araujo regarding transfer to medical floor. 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 Ruiz [employer] OPERATOR Quality Stroke Does the patient have a stroke diagnosis?: No VTE Prior VTE?: No VTE Risk Level:: Medical - moderate - high VTE Device Contraindication: N/A - Device Ordered VTE Drug Contraindication: N/A - Med Ordered
[2021-11-26] MEDS: Acetaminophen Supp 650 MG SUPP.RECT PR ×2 (09:56→15:28)
[2021-11-26 11:24] VITALS: RESP 34
[2021-11-26 15:50] VITALS: RESP 30
[2021-11-26 15:59] VITALS: RESP 32
[2021-11-26] MEDS: Morphine Sulfate/NS 100 MG/100 ML PLAST..BAG 7 MG IVCONT (15:59)
[2021-11-26 17:55] VITALS: RESP 28
[2021-11-26] MEDS: Scopolamine 1.5 MG PATCH.TD.3 EAR-BEHIND (23:11)
--- NOTE | 2021-11-27 04:17 | PC.NURSE ---
PT's life partner called at [phone], no answer and message left to call back to report PT . pronounced PT at 0330.
--- NOTE | 2021-11-27 05:50 | PC.NURSE ---
PT's contacts called at [phone], Wu at [phone] and Kay was also called [phone], message left at both phone numbers.
--- NOTE | 2021-11-27 06:39 | PM.EVENT ---
Event Note Date of Service: 11/27/21 Event Note: pt at 4:45 am
--- NOTE | 2021-11-27 07:41 | PM.DS ---
DS: Providers Provider Date of Service: 11/27/21 Date of admission: 11/18/21 20:04 Primary care physician: Brenda Cheung MD Attending physician on discharge: Cody Ruiz Discharging clinician: Lily Cuello DS: Diagnosis Discharge Diagnosis (1) Hypoxic encephalopathy: Status: Acute DS: Summary Hospital Course Hospital Course: HP as per admitting provider 55-year-old female, the majority of history obtained from ER records? But also from her who is now a bedside the patient has on underlying history of prescription drug abuse for about 3 years up until the end of last year currently on methadone, hypertension, hyperlipidemia.? According to the patient's , the patient had been doing well on methadone for the past several months since she started treatment.? ?He last spoke to her around 230 pm and she had complained of having a headache which is not usual for her as well as having elevated blood pressure,? ?Otherwise she was in good state of health. Reportedly the patient was at work and she was found slumped over perhaps seizing, EMS was called but only a BLS crew was available, according to ER records it was reported to them the patient had been down for 5 minutes, 3 shocks from AED were given at the scene and 12 mg of? intranasal Narcan without response, transported to the ER with CPR in progress, no rhythm on the monitor at the time; approximately 5 minutes of CPR and 2 doses of epinephrine were given via a intra osseous line placed in the Left tibia by the ER personnel; ROSC was obtained, the patient was intubated and right IJ central line. In the ED the workup revealed a white count 12.8, H&H of 12.9 and 41.4 respectively, platelets 361.? Her ABG pH 7.3, pCO2 29, PO2 294 HC03 14.? Sodium 139, potassium 3.7, chloride 1 6, carbon dioxide 17, anion gap 20, BUN 17, creatinine 1.3, GFR 41, random glucose 209, lactic acid 5.3, calcium 8.6.? LFTs elevated at 512 and 570 respectively, troponin 43.? Urine negative with a blood alcohol level less than 10.? There is no toxicology screen done, her chest x-ray and head CT showed no abnormalities . Patient was comfort measures. 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 No invasive procedures No labs Start fentanyl drip intiially, cahnged to morphine drip for open mouth and abdominal breathing, use this for comfort Other medical issues treated: History of opiate abuse on methadone Cardiac arrest with 5 minute down time Question seizure, EEG on 11/19/2021 showing no seizure activity Acute respiratory failure Hypertension Transaminitis Time Spent with Patient Time attestation: Total time spent providing and/or coordinating discharge services: Discharge coordination time: Greater than 30 minutes Quality: Safe Use of Opioids Does Pt have an Active Cancer Diagnosis on the Problem List?: No Quality: Stroke Does the patient have a stroke diagnosis?: No Physical Exam Vital Signs: Vital Signs: Last Vital Signs Temp 100.6 F H 11/23/21 16:00 Pulse 100 11/23/21 16:00 Resp 28 H 11/26/21 17:55 BP 117/62 11/23/21 16:00 Pulse Ox 95 11/23/21 16:00 O2 Del Method 11/25/21 16:30 O2 Flow Rate 3 11/25/21 16:30 FiO2 30 11/23/21 16:00 BMI result Body Mass Index 22.8 , not present for exam Discharge Plan Discharge Anticipated Discharge Date/Time: 11/27/21 07:45 Patient Disposition: Discharge Diagnosis: Cardiac arrest Referrals: Brenda Cheung MD [Primary Care Provider] - 1 Week Discharge Medications: No Action sennosides [senna] 8.6 mg tablet 1 tab PO DAILY atorvastatin 10 mg tablet 1 tab PO DAILY amlodipine 5 mg tablet 1.5 tab PO DAILY docusate sodium 100 mg capsule 1 cap PO DAILY lisinopril 40 mg tablet 1 tab PO DAILY buprenorphine-naloxone 2-0.5 mg film 1 strip sublingual DAILY
--- NOTE | 2021-11-27 11:04 | PC.NURSE ---
Kay Blackwell and Wu Brannon came to view the body, took patients personal belongings and gave the name of the home. [place] [facility] mine shifter nurse called [employer].
== END 2021-11-27 11:02 | disposition expired | DRG 196 ==
LOC: HO.ED 19:42 → HO.EDOVER 20:20 → HO.ICU 20:49 → HO.S3 11-24 16:41
PROVIDERS: Anesthesiology; Admitting Provider Physician Assistant Medical; Emergency Provider Emergency Medicine; PCP Internal Medicine; Visit Provider Nurse Practitioner Acute Care
DX: I46.9 Cardiac arrest, cause unspecified (principal); J96.01 Acute respiratory failure with hypoxia; K72.01 Acute and subacute hepatic failure with coma; I21.4 Non-ST elevation (NSTEMI) myocardial infarction; G93.1 Anoxic brain damage, not elsewhere classified; E87.4 Mixed disorder of acid-base balance; K56.7 Ileus, unspecified; Z66 Do not resuscitate; Z51.5 Encounter for palliative care; D72.829 Elevated white blood cell count, unspecified; I49.3 Ventricular premature depolarization; D18.09 Hemangioma of other sites; R56.9 Unspecified convulsions; I25.5 Ischemic cardiomyopathy; E78.5 Hyperlipidemia, unspecified; E83.42 Hypomagnesemia; E86.0 Dehydration; F11.20 Opioid dependence, uncomplicated; I47.2 Ventricular tachycardia; F17.210 Nicotine dependence, cigarettes, uncomplicated; I10 Essential (primary) hypertension; Z71.6 Tobacco abuse counseling; Z20.822 Contact with and (suspected) exposure to COVID-19; Z79.899 Other long term (current) drug therapy
CPT/HCPCS: 36415; 70450; 71045; 74177; 80048; 80053; 80061; 80143; 80307; 81001; 82077; 82248; 82271; 82803; 82947; 83605; 83735; 83880; 84100; 84132; 84145; 84146; 84484; 85025; 85027; 85610; 85730; 86140; 86704; 86706; 86709; 86803; 87040; 87070; 87077; 87185; 87186; 87205; 87340; 93005; 93306; 94002; 94003; 95816; 96360; 99285; C1758; J0171; J0282; J0295; J1170; J1650; J1885; J2060; J2270; J3010; J3475; Q9967